=== PATIENT | male | born 1945 | race Caucasian/White ===

== ENCOUNTER → 2017-07-07 | Outpatient (CLI) | payer OTHER ==
[~2017-07-07] MED LIST: ASPEC81 PO; CRS10 PO; FLM4 PO; FLNIN NAE; LEVO125T7 PO; PRLSR20 PO
--- NOTE | 2017-07-08 07:05 | PULMONARY FUNCTION TEST ---
Pulmonary function interpretation based off ATS criteria. SPIROMETRY: Within normal limits. BRONCHODILATOR RESPONSE: No significant response noted. LUNG VOLUMES: Not performed. DIFFUSION CAPACITY: Within normal limits. Normal pulmonary function studies.
== END | disposition home or self-care (01) ==
LOC: C.RC 10:44
PROVIDERS: ATTEND Internal Medicine Critical Care Medicine
DX: G70.01 Myasthenia gravis with (acute) exacerbation (principal); J43.9 Emphysema, unspecified

== ENCOUNTER 2017-09-23 12:09 | Emergency (ER) | payer OTHER ==
[~2017-09-23] VITALS: Ht 175.3 cm; Wt 77.4 kg
[2017-09-23 12:12] VITALS: TEMP 36.5; Ht 175.3 cm; Wt 77.4 kg
--- NOTE | 2017-09-23 12:56 | DIAGNOSTIC IMAGING REPORT ---
R FOOT MIN 3 VIEWS ROUTINE CLINICAL HISTORY: Right foot pain status post trauma COMPARISON: None. DISCUSSION: There is an acute transverse fracture through the proximal one third of the fifth metatarsal. The fractures essentially nondisplaced. There are vascular calcifications present. There is calcaneal spurring. There is chronic irregularity involving the base of the distal phalanx of the great toe. IMPRESSION: Acute transverse fracture through the proximal one third of the fifth metatarsal. Electronically signed by: Junior Damon M.D. 09/23/2017 12:55 PM Dictated Date/Time: 09/23/2017 12:54 PM
[2017-09-23] MEDS ORDERED: MYCO500T4 PO (12:57)
[2017-09-23] MEDS ORDERED: ROSU5TAB PO (12:57)
[2017-09-23] MEDS ORDERED: RAMI5CAP PO (12:57)
[2017-09-23] MEDS ORDERED: GLIM1TAB2 PO (12:57)
[2017-09-23] MEDS ORDERED: PRLSR20 PO (12:57)
[2017-09-23] MEDS ORDERED: LEVO25TA PO (12:57)
[2017-09-23] MEDS ORDERED: PYRI60TA2 PO (12:57)
[2017-09-23] MEDS ORDERED: CALC-20 PO (12:57)
[2017-09-23] MEDS ORDERED: TAMS0.4C38 PO (12:57)
[2017-09-23] MEDS ORDERED: FLUT0.15 NAE (12:57)
[2017-09-23] MEDS ORDERED: FSM70 PO (12:57)
[2017-09-23] MEDS ORDERED: CHOL100010 PO (12:57)
[2017-09-23] MEDS ORDERED: PRD/1 PO (12:57)
[2017-09-23] MEDS ORDERED: GLC/500 PO (12:57)
--- NOTE | 2017-09-23 13:00 | EMERGENCY ROOM VISIT NOTE ---
ED Visit Note First contact with patient: 12:15 I have seen and examined this patient with Cydney Saab and generally agree with the treatment plan as discussed. Current/Historical Medications Scheduled Alendronate Sodium (Alendronate Sodium), 1 TAB PO WK Calcium Carbonate-Vitamin D (Calcium 600 + D), 1 TAB PO BID Cholecalciferol (Vitamin D), 1,000 UNITS PO DAILY Glimepiride (Glimepiride), 1 TAB PO DAILY Levothyroxine Sodium (Synthroid), 1 TAB PO DAILY Metformin Hcl (Glucophage), 1 TAB PO BID Mycophenolate Mofetil (Cellcept), 1 TAB PO BID Omeprazole (Prilosec), 1 CAP PO DAILY Prednisone (Prednisone), 1 TAB PO DAILY Pyridostigmine Hamer (Mestinon), 1 TAB PO TID Ramipril (Ramipril), 1 CAP PO DAILY Rosuvastatin Calcium (Crestor), 1 TAB PO DAILY Tamsulosin Hcl (Flomax), 1 CAP PO DAILY Scheduled PRN Fluticasone Propionate (Nasal) (Flonase Allergy Relief), 1 SPRAY PAULINE DAILY PRN for ALLERGIES Allergies Coded Allergies: POLLEN (Unverified Allergy, Intermediate, ., 09/23/17) Vital Signs Date Time Temp Pulse Resp B/P (MAP) Pulse Ox O2 Delivery O2 Flow Rate FiO2 09/23/17 12:12 36.5 88 20 147/73 90 Room Air Departure Information Referrals Robert No M.D. (PCP) Patient Instructions My [facility]
--- NOTE | 2017-09-23 13:16 | EMERGENCY ROOM VISIT NOTE ---
History First contact with patient: 12:15 Chief Complaint: FOOT PAIN Stated Complaint: HURT RIGHT FOOT History of Present Illness The patient is a 72 year old male who presents to the Emergency Room with complaints of a right foot injury. The patient states that he was hunting 4 days ago and fell, injuring his right foot. The fall was mechanical and not associated with dizziness or lightheadedness. He has had persistent pain and swelling since then. He rates his discomfort a 7/10. He states the pain is on the outside of the foot. He has been elevating the foot and applying ice for the pain. The patient denies any other injuries associated with the fall. He denies any previous fractures of his foot. He has a history of myasthenia gravis and medication induced diabetes, but is otherwise healthy. Review of Systems A complete 10 point review of systems was reviewed with the patient with pertinent positives and negatives as per history of present illness. All else were negative. Social History Smoking Status: Former Smoker Marital Status: Occupation Status: retired Current/Historical Medications Scheduled Alendronate Sodium (Alendronate Sodium), 1 TAB PO WK Calcium Carbonate-Vitamin D (Calcium 600 + D), 1 TAB PO BID Cholecalciferol (Vitamin D), 1,000 UNITS PO DAILY Glimepiride (Glimepiride), 1 TAB PO DAILY Levothyroxine Sodium (Synthroid), 1 TAB PO DAILY Metformin Hcl (Glucophage), 1 TAB PO BID Mycophenolate Mofetil (Cellcept), 1 TAB PO BID Omeprazole (Prilosec), 1 CAP PO DAILY Prednisone (Prednisone), 1 TAB PO DAILY Pyridostigmine Sparkman (Mestinon), 1 TAB PO TID Ramipril (Ramipril), 1 CAP PO DAILY Rosuvastatin Calcium (Crestor), 1 TAB PO DAILY Tamsulosin Hcl (Flomax), 1 CAP PO DAILY Scheduled PRN Fluticasone Propionate (Nasal) (Flonase Allergy Relief), 1 SPRAY PAULINE DAILY PRN for ALLERGIES Physical Exam Vital Signs Date Time Temp Pulse Resp B/P (MAP) Pulse Ox O2 Delivery O2 Flow Rate FiO2 09/23/17 13:37 70 134/90 95 09/23/17 12:12 36.5 88 20 147/73 90 Room Air Physical Exam VITALS: Vitals are noted on the nurse's note and reviewed by myself. Vital signs stable. GENERAL: This is a 72-year-old male, in no acute distress, nondiaphoretic, well- developed well-nourished. SKIN: The skin was without erythema, edema, or bruising. MUSCULOSKELETAL: There is swelling and tenderness over the lateral aspect of the right foot in the area of the proximal fifth metatarsal. There is some bruising to the dorsal aspect of the foot proximal to the toes as well as some bruising of the plantar aspect of the foot. Dorsalis pedis pulse 2+. Capillary refill within 2 seconds. NEURO: Patient was alert and oriented to person place and time. Medical Decision & Procedures ER Provider Diagnostic Interpretation: R FOOT MIN 3 VIEWS ROUTINE CLINICAL HISTORY: Right foot pain status post trauma COMPARISON: None. DISCUSSION: There is an acute transverse fracture through the proximal one third of the fifth metatarsal. The fractures essentially nondisplaced. There are vascular calcifications present. There is calcaneal spurring. There is chronic irregularity involving the base of the distal phalanx of the great toe. IMPRESSION: Acute transverse fracture through the proximal one third of the fifth metatarsal. Medical Decision Differential diagnosis includes fracture, contusion, sprain, dislocation, among others. The patient was evaluated as above. Right foot x-rays were obtained and read by radiology and did show a Zhao fracture of the fifth metatarsal. Patient was informed of this. He was placed in a fracture boot and given crutches to keep as much weight off the foot as possible. Conservative measures were discussed. Case management was able to make him an appointment with orthopedics for tomorrow. The patient verbalized understanding of my assessment and treatment plan and was discharged home in good condition. The patient was independently evaluated by Dr. Valera, ED attending physician , who agreed with my assessment and treatment plan. Medication Reconcilliation Current Medication List: was personally reviewed by me Blood Pressure Screening Patient's blood pressure: Normal blood pressure Impression Primary Impression: Fracture of fifth metatarsal bone Departure Information Dispostion Home / Self-Care Condition GOOD Referrals Robert No M.D. (PCP) Patient Instructions My [facility] Additional Instructions You have been treated in the Emergency Department for a fifth metatarsal (Zhao ) fracture. For pain control, you can use the following [id number] medicines (if >12 yo): - Regular strength (325mg/tab) Tylenol (acetaminophen) 2 tabs every 4-6 hours as needed. Do not exceed 12 tablets in a 24 hour period. Avoid taking more than 4 grams (4000 mg) of Tylenol per day. This includes any other sources of acetaminophen you may take on a regular basis. - Regular strength (200 mg/tab) Advil (ibuprofen) 1-2 tabs every 4-6 hours as needed. Do not exceed a dose of 3200 mg per day. If this is a recent injury (<24 hrs), ice can be applied to the area of pain for the first 3 days to help decrease pain and inflammation. Keep your appointment with [facility] orthopedics tomorrow as scheduled. Keep the boot in place until cleared by Orthopedics. Use the crutches you have been provided to keep ALL weight off of the ankle until weight bearing is tolerable. Return to the Emergency Department if your current symptoms worsen despite treatment course outlined above, or if you develop any of the following symptoms : intractable pain despite aforementioned treatment course or new onset of numbness or tingling of the foot. Problem Qualifiers Primary Impression: Fracture of fifth metatarsal bone Encounter type: initial encounter Fracture type: closed Fracture alignment : nondisplaced Laterality: right Qualified Codes: S92.354A - Nondisplaced fracture of fifth metatarsal bone, right foot, initial encounter for closed fracture
[2017-09-23 13:37] VITALS: BP 134/90; PULSE 70; O2SAT 95
== END 2017-09-23 13:41 | disposition home or self-care (01) ==
LOC: C.EDB 12:10 → C.EDD 13:41
DX: S92.354A Nondisplaced fracture of fifth metatarsal bone, right foot, initial encounter for closed fracture (principal); W19.XXXA Unspecified fall, initial encounter; Y93.89 Activity, other specified; Y99.8 Other external cause status; Z87.891 Personal history of nicotine dependence

== ENCOUNTER 2019-07-17 12:34 | Inpatient (IN) ==
[2019-07-17] MEDS ORDERED: SODIUM CHLORIDE 0.9% 500 ML IV SCH (13:15)
[2019-07-17 13:49] LABS: Hematocrit (blood only) 43.2 % (42-52); Hemoglobin 14.7 g/dL (14.0-18.0); Mean Corpuscular Hemoglobin 28.3 pg (25-34); Mean Corpuscular Volume 83.2 fL (80-100); Mean Platelet Volume 8.8 fL (7.4-10.4); Platelet Count 146 K/uL (130-400); RDW Coefficient of Variation 14.2 % (11.5-14.5); RDW Standard Deviation 43.2 fL (36.4-46.3); Red Blood Count 5.19 M/uL (4.7-6.1); White Blood Count 12.08 K/uL (4.8-10.8)
[2019-07-17 14:08] LABS: Basophils # (auto) 0.01 K/uL (0-0.2); Basophils % (auto) 0.1 %; Immature Granulocytes # (auto) 0.04 K/uL (0.00-0.02); Immature Granulocytes % (auto) 0.3 %; Lymphocytes # (auto) 0.46 K/uL (1.2-3.4); Lymphocytes % (auto) 3.8 %; Monocytes % (auto) 6.6 %; Neutrophils # (auto) 10.77 K/uL (1.4-6.5); Neutrophils % (auto) 89.2 %
[2019-07-17 14:09] LABS: BUN Creatinine Ratio 22.5 (10-20); Calcium 9.4 mg/dl (8.5-10.1); Creatinine Clr Calc Pharmacy 41.7 ml/min; Est GFR (African American) 56.6; Est GFR (Non-African American) 48.8; Potassium 3.8 mmol/L (3.5-5.1)
[2019-07-17 14:12] LABS: Albumin Globulin Ratio 0.7 (0.9-2); Bilirubin,Total 0.6 mg/dl (0.2-1); Globulin 4.5 gm/dl (2.5-4.0); Total Protein 7.5 gm/dl (6.4-8.2)
--- NOTE | 2019-07-17 14:12 | CT Scan Report ---
ABDOMEN AND PELVIS CT WITHOUT CONTRAST CT DOSE: 351.77 mGy.cm HISTORY: Lower abdominal pain. TECHNIQUE: Multiaxial CT images of the abdomen and pelvis were performed without contrast. A dose lo wering technique was utilized adhering to the principles of ALARA. COMPARISON STUDY: None. FINDINGS: Emphysema and mild chronic interstitial thickening seen at the lung bases. No pneumoperiton eum. No pneumatosis. No suspicious lytic are blastic osseous lesions. The unenhanced liver, spleen, a drenal glands, and pancreas are unremarkable. A 5 mm gallstone. No gallbladder wall thickening. No re troperitoneal lymphadenopathy. Normal bladder. Multiple pelvic calcifications consistent with phlebol iths. Suboptimal evaluation for bowel pathology due to the lack of intravenous and oral contrast. The re are multiple colonic diverticula. Minimal fat stranding surrounding a single diverticulum within t he mid sigmoid colon best seen on image 354. This is consistent with a developing acute diverticuliti s. Fluid-filled colon. No evidence for bowel obstruction. Normal bladder. A 5 mm nonobstructing stone within the lower pole the right kidney. Moderate left hydronephrosis secondary to an obstructing 8 m m stone within the distal left ureter on image 355. This is beyond the level of the left iliac vessel s. IMPRESSION: 1. An 8 mm obstructing stone within the distal left ureter resulting in moderate left hydronephrosis. 2. Right-sided nephrolithiasis. 3. Minimal inflammatory change adjacent to a diverticulum at the mid sigmoid colon. This likely repre sents a developing acute diverticulitis. 4. Cholelithiasis. No gallbladder wall thickening. 5. Emphysema. Electronically signed by: Ga Dias M.D. 07/17/2019 2:10 PM
[2019-07-17 14:44] LABS: Lyme Ab IgG w/WB Rflx Negative (Negative); Lyme Ab IgM w/WB Rflx Negative (Negative)
[2019-07-17] MEDS ORDERED: CIPROFLOXACIN 400 MG/200 ML BAG IV STA (14:52)
[2019-07-17] MEDS ORDERED: metroNIDAZOLE 500 MG/100 ML BAG IV SCH (15:00)
[2019-07-17 15:20] LABS: Appearance Urine Clear (Clear); Bacteria Urine Automated Negative (Negative); Bilirubin Urine Negative (Negative); Blood Urine 1+ (Negative); Cast Urine Automated 0 /lpf (0-5); Color Urine Yellow; Glucose Urine UA 3+ (Negative); Ketones Urine Trace (Negative); Leukocyte Esterase Urine Negative (Negative); Nitrite Urine Negative (Negative); Protein Urine Trace (Negative); RBC Urine Automated 0-4 /hpf (0-4); Specific Gravity Urine 1.037 (1.000-1.030); Urobilinogen Urine Negative (Negative)
--- NOTE | 2019-07-17 15:32 | XRay Report ---
XR chest 2V routine HISTORY: cough eval for pna COMPARISON: Chest CT 05/22/2016. FINDINGS: Mild interstitial thickening. This is likely chronic. Otherwise, no focal lung consolidatio ns to suggest pneumonia. No pleural effusions. No pneumothorax. The heart is normal in size. Calcifie d left hilar/AP window lymph nodes are again noted. A 1 cm left perihilar nodular density. IMPRESSION: 1. No acute process within the chest. 2. Mild interstitial thickening which is likely chronic. 3. A 1 cm left perihilar nodular density. This is likely due to the normal pulmonary vessels. Follow- up nonemergent chest CT can be used for confirmation and to exclude the less likely possibility of a pulmonary nodule. Electronically signed by: Ga Dias M.D. 07/17/2019 3:30 PM
[2019-07-17] MEDS ORDERED: MoRPHine SULFATE 2 MG/ML CARP IV STA (15:56)
[2019-07-17] MEDS ORDERED: PIPERACILL/TAZOBAC CONSULT ACTIVE PRN (17:02)
[2019-07-17] MEDS ORDERED: GLUCOSE 10 TABS/TUBE PO PRN (17:02)
[2019-07-17] MEDS ORDERED: DEXTROSE 50% 50 ML SYRINGE IV PRN (17:02)
[2019-07-17] MEDS ORDERED: GLUCAGON FOR INJ 1 MG VIAL SQ PRN (17:02)
[2019-07-17] MEDS ORDERED: CARBOHYDRATES FOR HYPOGLYCEMIA PO PRN (17:02)
[2019-07-17] MEDS ORDERED: INSULIN ASPART 100 UNITS/ML 3 ML PEN SC SCH (17:02)
[2019-07-17] MEDS ORDERED: GLUCOSE 40% GEL 15 GM TUBE PO PRN (17:02)
[2019-07-17] MEDS ORDERED: SODIUM CHLORIDE 0.9% 1000ML 1,000 ML IV SCH (17:02)
[2019-07-17] MEDS ORDERED: HYDROmorphone INJ 0.5 MG/0.5 ML SYR IV STA (17:08)
[2019-07-17] MEDS ORDERED: HYDROmorphone INJ 0.5 MG/0.5 ML SYR ONE (17:10)
--- NOTE | 2019-07-17 17:18 | History & Physical Report ---
Date of Service July 17, 2019 Assessment & Plan (1) Left ureteral stone: (2) Obstructive uropathy: This is a 74-year-old male who has a significant PMH of myasthenia gravis, HTN, HLD, hypothyroidism, GERD, BPH, steroid-induced diabetes and osteoporosis, diverticulosis who presents to [facility] ED secondary to not feeling well for 4 days. In ED patient did have leukocytosis 12.08, sodium 132, chloride 96, BUN 32, creatinine 1.40, glucose 214, lactic acid 1.52 LFTs and lipase WNL Urinalysis consistent with elevated specific gravity 1.037, trace protein, glucose and ketones, +1 blood, but negative for bacteria His influenza A and B and Lyme screen negative Chest x-ray negative for acute abnormality, mild interstitial thickening likely chronic. CT scan of abdomen pelvis reveals 8 mm obstructing stone within the left distal ureter resulting in moderate left hydronephrosis, along with sigmoid acute diverticulitis. Upon admission pt did not meet SIRS/Sepsis Criteria WBC 12.08 but afebrile, normotensive, HR < 90 LA 1.5 In ED received IV Cipro/Flagyl along with IVF admit to med/surg telemetry Initiate IV Zosyn for dual coverage of acute diverticulitis/nephrolithiasis with hydronephrosis in setting of myasthenia gravis IVF 125 cc/h Continue Flomax Urology consulted - Dr. Killian made aware NPO w/ sips/chips pain control with morphine (3) DALE (acute kidney injury): BUN/creatinine 32 and 1.40 Likely in setting of obstructive uropathy Baseline creatinine 0.9 IVF 125 cc/h Repeat renal function in a.m. 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 Monitor daily need for chemical prophylaxis Disposition: Admit to med/surg with telemetry Follow up: PCP Dr. Razo upon discharge Patient was seen and examined in collaboration with Dr. Snell, please see addendum History of Present Illness Chief Complaint: Not feeling well x 4 days. Primary Care Provider: Robert No MD This is a 74-year-old male who has a significant PMH of myasthenia gravis, HTN, HLD, hypothyroidism, GERD, BPH, steroid-induced diabetes and osteoporosis, diverticulosis who presents to [facility] ED secondary to not feeling well for 4 days. Since he overall has not been feeling good. States "I felt so bad I totally lost Thursday, I cannot even remember Thursday." Initially symptoms started as arthralgias and myalgias, headache, nausea. Symptoms persisted and further developed diarrhea with incontinence of stool x3, and left lower quadrant abdominal pain. His left lower quadrant pain has been persistent mostly today, rated 8/10, nonradiating, never had in past, unsure if made worse with walking or movement. Nothing seems to make pain improved. Has not tried anything [id number]. Feels pain is worse since arrival. He denies any mely fever, chills, sweats, lightheadedness, dizziness, chest pain, shortness of breath, cough, hemoptysis, URI symptoms, emesis, hematochezia, melena, dysuria, increased urgency or frequency with urination, hematuria. He does elicit he has difficulty starting stream. Denies any recent antibiotic use. In ED patient did have leukocytosis 12.08, sodium 132, chloride 96, BUN 32, creatinine 1.40, glucose 214, lactic acid 1.52 LFTs and lipase WNL Urinalysis consistent with elevated specific gravity 1.037, trace protein, glucose and ketones, +1 blood, but negative for bacteria His influenza A and B and Lyme screen negative Chest x-ray negative for acute abnormality, mild interstitial thickening likely chronic. CT scan of abdomen pelvis reveals 8 mm obstructing stone within the left distal ureter resulting in moderate left hydronephrosis, along with sigmoid acute diverticulitis. Allergies Allergy/AdvReac Type Severity Reaction Status Date / Time pollen extracts Allergy Intermediate . Unverified 07/17/19 13:55 Home Medications Home Medications Medication Instructions Recorded Confirmed Type alendronate 70 mg tablet 70 mg PO WK #4 tab 07/07/19 07/17/19 History calcium carbonate 600 mg (1,500 1 tab PO BID tab 07/07/19 07/17/19 History mg)-vitamin D3 200 unit tablet cholecalciferol (vitamin D3) 1,000 1,000 unit PO QAM cap 07/07/19 07/17/19 History unit capsule fluticasone propionate 50 2 spray INTRANASAL DAILY #1 gm 07/07/19 07/17/19 History mcg/actuation nasal spray,suspension halobetasol propionate 0.05 % 1 applic TOPICAL DAILY gm 07/07/19 07/17/19 History topical cream levothyroxine 125 mcg tablet 125 mcg PO QAM #30 tab 07/07/19 07/17/19 History metformin 1,000 mg tablet 1,000 mg PO BID #180 tab 07/07/19 07/17/19 History omeprazole 20 mg capsule,delayed 20 mg PO QPM #30 cap 07/07/19 07/17/19 History release prednisone 10 mg tablet 15 mg PO QAM tab 07/07/19 07/17/19 History pyridostigmine bromide 60 mg tablet 60 mg PO TID tab 07/07/19 07/17/19 History ramipril 2.5 mg tablet 2.5 mg PO QPM tab 07/07/19 07/17/19 History rosuvastatin 10 mg tablet 10 mg PO QAM #90 tab 07/07/19 07/17/19 History tamsulosin 0.4 mg capsule 0.4 mg PO QPM 07/07/19 07/17/19 History cyanocobalamin (vitamin B-12) 1,000 mcg PO QAM 07/17/19 07/17/19 History [Vitamin B-12] empagliflozin [Jardiance] 10 mg PO QAM 07/17/19 07/17/19 History mycophenolate mofetil [CellCept] 500 mg PO QAM 07/17/19 07/17/19 History Past Med/Surg History Medical History HLD (hyperlipidemia) (Chronic) BPH (benign prostatic hyperplasia) (Chronic) Steroid-induced diabetes mellitus (Chronic) HTN (hypertension) (Chronic) Steroid-induced osteoporosis (Chronic) GERD (gastroesophageal reflux disease) (Chronic) Diverticulosis (Chronic) Myasthenia gravis (Chronic) Hypothyroidism (Chronic) Surgical History History of colonoscopy with polypectomy (Chronic) Family History Father , 72 Coronary heart disease Mother Cancer, Onset Age: 75 Brother Prostate cancer Sister Breast cancer Son Myocardial infarction, Onset Age: 30 Son Stroke Social History Preferred Language: Guinean Communication Ability: Effective 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 Required: No Beliefs That Will Affect Care: None Current Living Situation: Spouse Other Information That Helps Us Care for You: No Feels Safe at Home: Yes Safety Concerns: Feels Safe At This Time Smoking Status: Former smoker Do You Dip or Chew Tobacco: No ; Hx Alcohol Use: No Hx Substance Use: No Review of Systems Review of Systems: All systems reviewed & are unremarkable except as noted in HPI & below Physical Exam Physical Exam: Constitutional: WD/WN male, + rigors, vitals as above, +pain, sitting up in bed, conversing easily Head: Normocephalic, Atraumatic Eyes: PERRL, conjunctivae normal, anicteric sclerae ENMT: external ear and nose normal, oropharynx dry mucous membranes Neck: trachea midline, no thyromegaly normal visual inspection Respiratory: normal respiratory effort, lungs clear to auscultation, no wheeze, rales, rhonchi. Normal insp/exp effort, no accessory muscle use Cardiovascular: RRR, no murmur, no edema Vessels: no JVD or carotid bruit Chest: normal inspection of chest Abdomen: normal bowel sounds, soft, + LLQ abd pain, no rebound, guarding, rigidity, no hepatosplenomegaly Musculoskeletal: no cyanosis or clubbing, extremities motor strength 5/5 Skin: no rashes, warm and dry normal turgor Neurologic: PERRL, EOMI, accommodation nl, no face palsy, no dysarthria CN's II-XI intact bilaterally and moves all extremities Psychiatric: A+Ox3, euthymic affect Lymphatic: no cervical or axillary lymphadenopathy : deferred Results & Data Vital Signs (Past 12 Hours) Vital Signs Temp Pulse Pulse Pulse Resp BP BP 07/17/19 16:56 38 C H 94 H 18 07/17/19 16:00 78 23 07/17/19 15:30 66 156/70 H 07/17/19 15:00 64 149/74 H 07/17/19 14:57 65 07/17/19 14:55 67 149/75 H 07/17/19 14:34 68 18 145/75 H 07/17/19 13:47 75 07/17/19 12:37 36.6 C 98 H 20 99/61 L Pulse Ox 07/17/19 16:56 94 07/17/19 16:00 07/17/19 15:30 07/17/19 15:00 07/17/19 14:57 07/17/19 14:55 07/17/19 14:34 98 07/17/19 13:47 96 07/17/19 12:37 94 Laboratory Results Short CBC 07/17/19 07/17/19 Range/Units 13:33 13:33 WBC 12.08 H (4.8-10.8) K/uL Hgb 14.7 (14.0-18.0) g/dL Hct 43.2 (42-52) % Plt Count 146 (130-400) K/uL Creatinine 1.40 (0.6-1.4) mg/dl BMP 07/17/19 13:33 Sodium 132 L Potassium 3.8 Chloride 96 L Carbon Dioxide 25 BUN 32 H Creatinine 1.40 Glucose 214 H Calcium 9.4 Liver Function 07/17/19 Range/Units 13:33 Total Bilirubin 0.6 (0.2-1) mg/dl AST 24 (15-37) U/L ALT 32 (12-78) U/L Alkaline Phosphatase 49 (45-117) U/L Albumin 3.0 L (3.4-5.0) gm/dl Urine 07/17/19 Range/Units 14:55 Urine Color Yellow Urine Appearance Clear (Clear) Urine pH 5.0 (4.5-7.5) Ur Specific [place] 1.037 H (1.000-1.030) Urine Protein Trace H (Negative) Urine Glucose (UA) 3+ H (Negative) Diagnostic Findings CXR: IMPRESSION: 1. No acute process within the chest. 2. Mild interstitial thickening which is likely chronic. 3. A 1 cm left perihilar nodular density. This is likely due to the normal pulmonary vessels. Follow-up nonemergent chest CT can be used for confirmation and to exclude the less likely possibility of a pulmonary nodule. Abd/Pelvis CT: IMPRESSION: 1. An 8 mm obstructing stone within the distal left ureter resulting in moderate left hydronephrosis. 2. Right-sided nephrolithiasis. 3. Minimal inflammatory change adjacent to a diverticulum at the mid sigmoid colon. This likely represents a developing acute diverticulitis. 4. Cholelithiasis. No gallbladder wall thickening. 5. Emphysema. Medications Administered Sodium Chloride (Nss 1000ml) 1,000 mls @ 125 mls/hr IV .Q8H JAQUELIN Stop: 07/18/19 01:01 Last Admin: 07/17/19 17:18 Dose: 125 mls/hr Documented by: [id number] Discontinued Medications Hydromorphone HCl (Dilaudid) 0.5 mg IV NOW STA Stop: 07/17/19 17:09 Last Admin: 07/17/19 17:20 Dose: 0.5 mg Documented by: [id number] Hydromorphone HCl (Dilaudid) Confirm Administered Dose 0.5 mg .ROUTE .STK-MED ONE Stop: 07/17/19 17:11 Last Admin: 07/17/19 17:21 Dose: Not Given Documented by: [id number] Sodium Chloride (Nss) 500 mls @ 999 mls/hr IV .Q31M JAQUELIN Stop: 07/17/19 13:45 Last Infusion: 07/17/19 14:19 Dose: 0 mls/hr Documented by: [id number] Admin: 07/17/19 13:44 Dose: 999 mls/hr Documented by: [id number] Ciprofloxacin (Cipro) 400 mg in 200 mls @ 200 mls/hr IV NOW STA Stop: 07/17/19 15:51 Last Infusion: 07/17/19 16:20 Dose: 0 mls/hr Documented by: [id number] Admin: 07/17/19 15:18 Dose: 200 mls/hr Documented by: [id number] Morphine Sulfate (Morphine Sulfate) 1 mg IV NOW STA Stop: 07/17/19 15:57 Last Admin: 07/17/19 16:06 Dose: 1 mg Documented by: [id number] ECG Rate (beats per minute): 79 Rhythm: sinus rhythm Code Status & VTE Plan Code Status Full Code VTE Prophylaxis Plan VTE Prophylaxis will be ordered: Yes Supervising Physician Co-Signing Physician Notes Attending addendum: This is a 74-year-old male with history of myasthenia gravis on chronic immunosuppressant CellCept, prednisone, presented to ER with weakness fever abdominal pain and discomfort In the abdomen pelvis shows: 8 mm obstructing stone within the distal left ureter resulting in moderate left hydronephrosis Minimal inflammatory change adjacent with diverticulum at the mid sigmoid colon likely represent a developing acute diverticulitis Cholelithiasis no gallbladder 1 thickening Patient meets criteria for sepsis With fever tachycardia, leukocytosis WBC 12 Blood cultures x2 shows gram-positive cocci Physical exam: General: Thin, ill-appearing gentleman, in moderate distress secondary to pain, noted to have chills and Reiger HEENT: Sclera nonicteric Lungs: Clear to auscultate no wheeze or rales Heart: Regular tachycardic no lower extremity edema Abdomen: Left lower quadrant tenderness, no rebound, bowel sounds diminished, no left CVA tenderness Neurology: Hand tremor: Worse from his baseline myasthenia gravis-fever, chills Monitor closely No focal neurological deficit noted Assessment and plan Sepsis: Met criteria for sepsis, present with fever tachycardia leukocytosis, acute renal failure, Source of infection possible obstructed ureteral stone, acute sigmoid diverticulitis Ordered for IV fluids, admission to medical telemetry, Broad-spectrum antibiotic with Zosyn, Avoid quinolones for history of myasthenia gravis(can exacerbation of myasthenia/mesna crisis leading severe respiratory disease depression) Patient received ciprofloxacin x1 dose in the ER Continue to monitor patient closely Urology consulted, appreciate input, Patient is taken to the OR emergently for left ureteric stent placement Acute renal failure: Secondary to sepsis, dehydration For IV fluids, and avoid NSAIDs contrast studies Repeat BMP in a.m. These refer to further documentation by Joyce Mejia PA-C for discussion of other chronic issues [place] [facility]
[2019-07-17] MEDS ORDERED: PIPERACILLIN/TAZOBACTAM 3.375 GM in DEXTROSE 5% 100 ML IV SCH (17:30)
[2019-07-17] MEDS: ACETAMINOPHEN 1,000 MG/100 ML VIAL IV SCH (18:26)
[2019-07-17] MEDS ORDERED: Nursing to Pharmacy Communication ONE (18:56)
--- NOTE | 2019-07-17 18:57 | Urology Consultation ---
Date of Consultation July 17, 2019 Assessment & Plan (1) Left ureteral stone: 8 mm obstructing ureteral stone on left. risks and benefits discussed at length for procedure. These include bleeding, infection, injury to surrounding tissues or organs, and risks associated with anesthesia. Patient states understanding and agrees to proceed. Will sign consent and schedule. Discussed options at length. We will proceed with cystoscopy and left stent placement. Discussed possibility of sepsis with obstructing stones. Patient will likely need to continue IV antibiotics. Will take urgently to OR as soon as available. History of Present Illness Attending Physician: Jolene Snell MD History of Present Illness Patient with sudden onset of severe flank pain on left coming to groin. Has been having some bowel issues as well. Was seen in the ER where he was diagnosed with early acute diverticulitis as well as an 8 mm obstructing left ureteral stone with hydronephrosis. Patient was admitted and started on broad- spectrum antibiotics to cover both issues. Since admission has now had a temperature of 38.0. Also pulse and BP have elevated. Pain coming in waves to back and flank. Has not felt well for the entire day. Had toast this morning for breakfast approximately 9 AM. No other intake Allergies Allergy/AdvReac Type Severity Reaction Status Date / Time pollen extracts Allergy Intermediate . Unverified 07/17/19 13:55 Home Medications Home Medications Medication Instructions Recorded Confirmed Type alendronate 70 mg tablet 70 mg PO WK #4 tab 07/07/19 07/17/19 History calcium carbonate 600 mg (1,500 1 tab PO BID tab 07/07/19 07/17/19 History mg)-vitamin D3 200 unit tablet cholecalciferol (vitamin D3) 1,000 1,000 unit PO QAM cap 07/07/19 07/17/19 History unit capsule fluticasone propionate 50 2 spray INTRANASAL DAILY #1 gm 07/07/19 07/17/19 History mcg/actuation nasal spray,suspension halobetasol propionate 0.05 % 1 applic TOPICAL DAILY gm 07/07/19 07/17/19 Hist ory topical cream levothyroxine 125 mcg tablet 125 mcg PO QAM #30 tab 07/07/19 07/17/19 History metformin 1,000 mg tablet 1,000 mg PO BID #180 tab 07/07/19 07/17/19 History omeprazole 20 mg capsule,delayed 20 mg PO QPM #30 cap 07/07/19 07/17/19 History release prednisone 10 mg tablet 15 mg PO QAM tab 07/07/19 07/17/19 History pyridostigmine bromide 60 mg tablet 60 mg PO TID tab 07/07/19 07/17/19 History ramipril 2.5 mg tablet 2.5 mg PO QPM tab 07/07/19 07/17/19 History rosuvastatin 10 mg tablet 10 mg PO QAM #90 tab 07/07/19 07/17/19 History tamsulosin 0.4 mg capsule 0.4 mg PO QPM 07/07/19 07/17/19 History cyanocobalamin (vitamin B-12) 1,000 mcg PO QAM 07/17/19 07/17/19 History [Vitamin B-12] empagliflozin [Jardiance] 10 mg PO QAM 07/17/19 07/17/19 History mycophenolate mofetil [CellCept] 500 mg PO QAM 07/17/19 07/17/19 History Patient History Medical History HLD (hyperlipidemia) (Chronic) BPH (benign prostatic hyperplasia) (Chronic) Steroid-induced diabetes mellitus (Chronic) HTN (hypertension) (Chronic) Steroid-induced osteoporosis (Chronic) GERD (gastroesophageal reflux disease) (Chronic) Diverticulosis (Chronic) Myasthenia gravis (Chronic) Hypothyroidism (Chronic) Surgical History History of colonoscopy with polypectomy (Chronic) Family History Father , 72 Coronary heart disease Mother Cancer, Onset Age: 75 Brother Prostate cancer Sister Breast cancer Son Myocardial infarction, Onset Age: 30 Son Stroke Social History Preferred Language: Scottish Communication Ability: Effective 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 Patient is well nourished and well kept. HEENT: Normocephalic Atraumatic. Inspection normal. Cranial Nerves 2-12 Grossly intact. Nares are clear. Neck is supple. Normal inspection of face. Normal inspection of neck. Neurologic: No deficits on inspection. Baseline for motor function and sensory. Psychologic: Normal affect. Respiratory: Nonlabored. No use of accessory muscles. No tachypnea or dyspnea. Cardiovascular: tachycardia Skin: Manele and Dry. No rashes or visible lesions. Extremities: Moving without issues. No motor deficits on inspection Lymphatics: No edema Abdomen: Moderate left flank and groin pain. Results & Data Vital Signs (Past 12 Hours) Vital Signs Temp Pulse Pulse Pulse Resp BP BP 07/17/19 16:56 38 C H 94 H 18 07/17/19 16:45 90 165/74 H 07/17/19 16:00 78 23 07/17/19 15:30 66 156/70 H 07/17/19 15:00 64 149/74 H 07/17/19 14:57 65 07/17/19 14:55 67 149/75 H 07/17/19 14:34 68 18 145/75 H 07/17/19 13:47 75 07/17/19 12:37 36.6 C 98 H 20 99/61 L Pulse Ox 07/17/19 16:56 94 07/17/19 16:45 07/17/19 16:00 07/17/19 15:30 07/17/19 15:00 07/17/19 14:57 07/17/19 14:55 07/17/19 14:34 98 07/17/19 13:47 96 07/17/19 12:37 94 PG Care Time/CCT Total # of Minutes Spent Total Time Spent with Patient: Total time spent is greater than 50% in coordination of care (as documented) at patient's floor/unit and/or counseling patient:
--- NOTE | 2019-07-17 19:31 | Anesthesiology Consultation ---
Date of Service July 17, 2019 Assessment & Plan (1) Encounter for pre-operative examination: Chart Review Chart Review: Acceptable Risk for Surgery Consults Requested none ASA [id number] Proposed Anesthesia Anesthesia Type: MAC Risk / Benefits Reviewed With: PT / POA / Parent / Guardian, Accepts Plan and Informed Consent Obtained History Surgery Operation Date: 07/17/19 20:00 Proposed Procedures p Cystoscopy(Left) - Romero Killian II, DO Height/Weight Height: 5 ft 9 in Weight: 64.6 kg Allergies Allergy/AdvReac Type Severity Reaction Status Date / Time pollen extracts Allergy Intermediate . Unverified 07/17/19 13:55 Medications Home Medications Medication Instructions Recorded Confirmed Last Taken alendronate 70 mg tablet 70 mg PO WK #4 tab 07/07/19 07/17/19 07/11/19 calcium carbonate 600 mg (1,500 1 tab PO BID tab 07/07/19 07/17/19 07/17/19 mg)-vitamin D3 200 unit tablet cholecalciferol (vitamin D3) 1,000 1,[address] [facility] 07/07/19 07/17/19 07/17/19 unit capsule fluticasone propionate 50 2 spray INTRANASAL DAILY #1 gm 07/07/19 07/17/19 Unknown mcg/actuation nasal spray,suspension halobetasol propionate 0.05 % 1 applic TOPICAL DAILY 07/07/19 07/17/19 Unknown topical cream levothyroxine 125 mcg tablet 125 mcg PO QAM #30 tab 07/07/19 07/17/19 07/17/19 metformin 1,000 mg tablet 1,000 mg PO BID #180 tab 07/07/19 07/17/19 07/17/19 omeprazole 20 mg capsule,delayed 20 mg PO QPM #30 [facility] 07/07/19 07/17/19 07/16/19 release prednisone 10 mg tablet 15 mg PO QAM tab 07/07/19 07/17/19 07/17/19 pyridostigmine bromide 60 mg tablet 60 mg PO TID tab 07/07/19 07/17/19 07/17/19 ramipril 2.5 mg tablet 2.5 mg PO QPM tab 07/07/19 07/17/19 07/16/19 rosuvastatin 10 mg tablet 10 mg PO QAM #90 tab 09/07/17/19 07/17/19 tamsulosin 0.4 mg capsule 0.4 mg PO QPM 07/07/19 07/17/19 07/16/19 cyanocobalamin (vitamin B-12) 1,000 mcg PO QAM 07/17/19 07/17/19 07/17/19 [Vitamin B-12] empagliflozin [Jardiance] 10 mg PO QAM 07/17/19 07/17/19 07/17/19 mycophenolate mofetil [CellCept] 500 mg PO QAM 07/17/19 07/17/19 07/17/19 Active Medications Generic Name Dose Route Start Last Admin Trade Name Freq PRN Reason Stop Dose Admin Sodium Chloride 1,000 mls @ 125 mls/hr 07/17/19 17:02 07/17/19 17:18 Nss 1000ml IV 07/18/19 01:01 125 mls/hr .Q8H JAQUELIN Administration Acetaminophen 1,000 mg in 100 mls @ 400 mls/hr 07/17/19 18:00 07/17/19 18:57 Ofirmev IV 08/16/19 17:59 Infused Q8H JAQUELIN Infusion NPO Date Last Intake of Fluids: 07/17/19 Time Last Intake of Fluids: 18:00 Last Intake of Fluids Comment: ice chips and sips Date Last Intake of Solids: 07/17/19 Time Last Intake of Solids: 09:00 Past Medical History Medical History HLD (hyperlipidemia) (Chronic) BPH (benign prostatic hyperplasia) (Chronic) Steroid-induced diabetes mellitus (Chronic) HTN (hypertension) (Chronic) Steroid-induced osteoporosis (Chronic) GERD (gastroesophageal reflux disease) (Chronic) Diverticulosis (Chronic) Myasthenia gravis (Chronic) Hypothyroidism (Chronic) Exercise / Class Metabolic Activity III < 4 Walking/Shop/Light housework Negative for chest pain or shortness of breath. Past Family History Family History Father , 72 Coronary heart disease Mother Cancer, Onset Age: 75 Brother Prostate cancer Sister Breast cancer Son Myocardial infarction, Onset Age: 30 Son Stroke Past Surgical History Surgical History History of colonoscopy with polypectomy (Chronic) Past Anesthesia History No Hx of Anesthesia Complications History of PONV No Hx of PONV Social History Smoking Status: Former smoker Do You Dip or Chew Tobacco: No Hx Alcohol Use: No Hx Substance Use: No Review of Systems abdominal pain, fever, denies n/v Physical Exam Vital Signs Last Vital Signs Temp 37.2 C 07/17/19 19:36 Pulse 85 07/17/19 19:36 Resp 16 07/17/19 19:36 BP 84/48 L 07/17/19 19:36 Pulse Ox 94 07/17/19 19:36 Constitutional not obese ENMT Mouth: no TMJ abnormality and oral opening not small Thyromental Distance: > or= 3.5 Finger Breadths Mallampati Class: II Neck normal visual inspection; neck extension not limited Respiratory normal respiratory effort Auscultation: lungs clear to auscultation bilaterally Cardiovascular Rate/Rhythm: regular rate and regular rhythm Heart Sounds: no murmur Neurologic moves all extremities Psychiatric Orientation: alert and oriented x 3 Testing Laboratory Results 07/17/19 13:33 07/17/19 13:33 Urine Color Yellow 07/17/19 14:55 Urine Appearance Clear (Clear) 07/17/19 14:55 Urine pH 5.0 (4.5-7.5) 07/17/19 14:55 Ur Specific [place] 1.037 (1.000-1.030) H 07/17/19 14:55 Urine Protein Trace (Negative) H 07/17/19 14:55 Urine Glucose (UA) 3+ (Negative) H 07/17/19 14:55 Urine Ketones Trace (Negative) H 07/17/19 14:55 Urine Nitrite Negative (Negative) 07/17/19 14:55 Ur Leukocyte Esterase Negative (Negative) 07/17/19 14:55 Urine WBC (Auto) 1-5 /hpf (0-5) 07/17/19 14:55 Urine RBC (Auto) 0-4 /hpf (0-4) 07/17/19 14:55 U Hyaline Cast (Auto) 0 /lpf (0-5) 07/17/19 14:55 U Epithel Cells (Auto) 10-20 /lpf (0-5) H 07/17/19 14:55 Urine Bacteria (Auto) Negative (Negative) 07/17/19 14:55 07/17/19 17:12 POC Glucose 217 H Electrocardiogram Date: 07/17/19 Findings: + NSR @ (79) Normal sinus rhythm Inferior infarct , age undetermined, No previous ECGs available
[2019-07-17] MEDS ORDERED: LIDOCAINE HCL 2% 2 ML VIAL/AMP(20MG/ML) INFIL ONE (19:37)
[2019-07-17] MEDS ORDERED: PROPOFOL IV EMULSION 10 MG/ML 20 ML VIAL IV ONE ×2 (19:37→20:25)
[2019-07-17] MEDS: PYRIDOSTIGMINE BROMIDE 60 MG TAB PO SCH ×2 (19:53→23:40)
[2019-07-17] MEDS ORDERED: MoRPHine SULFATE 2 MG/ML CARP IV PRN (20:00)
[2019-07-17] MEDS ORDERED: HYDROmorphone INJ 1 MG/ML SYRINGE IV PRN (20:00)
[2019-07-17] MEDS ORDERED: MIDAZOLAM HCL 1 MG/ML 2ML VIAL ONE (20:07)
[2019-07-17] MEDS ORDERED: IOTHALAMATE MEGLUMINE II 17.2% 250 ML VIAL ONE (20:16)
--- NOTE | 2019-07-17 20:19 | Emergency Department Note ---
Entered by Eladia Curry acting as a scribe for History of Present Illness General Chief complaint: Flu Like Symptoms Stated complaint: FLU SICK Source: patient Limitations: no limitations History of Present Illness Onset (ago): day(s) 3 Location: head, upper extremity and lower extremity Pain Consistency: + other (persistent) Maximum Pain Intensity: 5 Quality: + other (flu-like ) Associated symptoms: + fever/chills, + headaches and + other (abdominal pain, "rumbling" in stomach, diarrhea); no cough and no shortness of breath The patient is a 74 year old male who presents to the Emergency Room with complaints of persistent flu-like symptoms that began 3 days ago. He states that the symptoms began with aching joints in his upper and lower extremities. The patient reports that nausea began after the aching joints, stating that he has mid-lower abdominal pain. He notes that his stomach has been "rumbling." The patient complains of multiple episodes of loose diarrhea. He states that he has left-sided chest "irritation," denying any chest pressure or tightness. The patient notes that he had a fever of 102 degrees last night. He complains of an intermittent headache, noting that this is a normal headache. The patient denies any headache now. He denies any hematochezia, SOB, cough, and urinary symptoms. The patient denies any recent international travel, antibiotic use, and tick exposure. He states that he has not history of abdominal surgeries. Home Medications Home Medications Medication Instructions Recorded Confirmed Type alendronate 70 mg tablet 70 mg PO WK #4 tab 07/07/19 07/17/19 History calcium carbonate 600 mg (1,500 1 tab PO BID tab 07/07/19 07/17/19 History mg)-vitamin D3 200 unit tablet cholecalciferol (vitamin D3) 1,000 1,000 unit PO QAM cap 07/07/19 07/17/19 History unit capsule fluticasone propionate 50 2 spray INTRANASAL DAILY #1 gm 07/07/19 07/17/19 History mcg/actuation nasal spray,suspension halobetasol propionate 0.05 % 1 applic TOPICAL DAILY gm 07/07/19 07/17/19 History topical cream levothyroxine 125 mcg tablet 125 mcg PO QAM #30 tab 07/07/19 07/17/19 History metformin 1,000 mg tablet 1,000 mg PO BID #180 tab 07/07/19 07/17/19 History omeprazole 20 mg capsule,delayed 20 mg PO QPM #30 cap 07/07/19 07/17/19 History release prednisone 10 mg tablet 15 mg PO QAM tab 07/07/19 07/17/19 History pyridostigmine bromide 60 mg tablet 60 mg PO TID tab 07/07/19 07/17/19 History ramipril 2.5 mg tablet 2.5 mg PO QPM tab 07/07/19 07/17/19 History rosuvastatin 10 mg tablet 10 mg PO QAM #90 tab 07/07/19 07/17/19 History tamsulosin 0.4 mg capsule 0.4 mg PO QPM 07/07/19 07/17/19 History cyanocobalamin (vitamin B-12) 1,000 mcg PO QAM 07/17/19 07/17/19 History [Vitamin B-12] empagliflozin [Jardiance] 10 mg PO QAM 07/17/19 07/17/19 History mycophenolate mofetil [CellCept] 500 mg PO QAM 07/17/19 07/17/19 History Allergies Allergy/AdvReac Type Severity Reaction Status Date / Time pollen extracts Allergy Intermediate . Unverified 07/17/19 13:55 Past Med/Surg History Medical History HLD (hyperlipidemia) (Chronic) BPH (benign prostatic hyperplasia) (Chronic) Steroid-induced diabetes mellitus (Chronic) HTN (hypertension) (Chronic) Steroid-induced osteoporosis (Chronic) GERD (gastroesophageal reflux disease) (Chronic) Diverticulosis (Chronic) Myasthenia gravis (Chronic) Hypothyroidism (Chronic) Surgical History History of colonoscopy with polypectomy (Chronic) Family History Father , 72 Coronary heart disease Mother Cancer, Onset Age: 75 Brother Prostate cancer Sister Breast cancer Son Myocardial infarction, Onset Age: 30 Son Stroke Social History Preferred Language: Czech Communication Ability: Effective Shaper And Presser Required: No Beliefs That Will Affect Care: None Current Living Situation: Spouse Other Information That Helps Us Care for You: No Feels Safe at Home: Yes Safety Concerns: Feels Safe At This Time Smoking Status: Former smoker Do You Dip or Chew Tobacco: No ; Hx Alcohol Use: No Hx Substance Use: No Review of Systems See HPI for pertinent positives & negatives. and A total of 10 systems reviewed and were otherwise negative Physical Exam Vital Signs Vital Signs - 24 hr 07/17/19 12:34 07/17/19 12:37 07/17/19 13:47 Temperature 36.6 C Temperature Source Oral Oral Sepsis Recent Fever Within 48 Hours No Sepsis New/Unexplained Change in Mental Status No Sepsis Action Taken by Nursing No Action Required Pulse Rate 98 H 75 Pulse Rate [Apical] Pulse Rate from SpO2 Sensor 79 Respiratory Rate 20 Respiratory Effort / Characteristics Non-Labored Spontaneous Respiratory Depth Normal Blood Pressure 99/61 L Blood Pressure [Right Arm] Blood Pressure Mean 73 Blood Pressure Mean [Right Arm] Pulse Oximetry 94 96 Oxygen Delivery Method Room Air 07/17/19 14:34 07/17/19 14:55 07/17/19 14:57 Temperature Temperature Source Sepsis Recent Fever Within 48 Hours Sepsis New/Unexplained Change in Mental Status Sepsis Action Taken by Nursing Pulse Rate 67 65 Pulse Rate [Apical] 68 Pulse Rate from SpO2 Sensor Respiratory Rate 18 Respiratory Effort / Characteristics Respiratory Depth Blood Pressure 149/75 H Blood Pressure [Right Arm] 145/75 H Blood Pressure Mean 99 Blood Pressure Mean [Right Arm] 98 Pulse Oximetry 98 Oxygen Delivery Method 07/17/19 15:00 07/17/19 15:30 Temperature Temperature Source Sepsis Recent Fever Within 48 Hours Sepsis New/Unexplained Change in Mental Status Sepsis Action Taken by Nursing Pulse Rate 64 66 Pulse Rate [Apical] Pulse Rate from SpO2 Sensor Respiratory Rate Respiratory Effort / Characteristics Respiratory Depth Blood Pressure 149/74 H 156/70 H Blood Pressure [Right Arm] Blood Pressure Mean 99 98 Blood Pressure Mean [Right Arm] Pulse Oximetry Oxygen Delivery Method Constitutional: Vital signs reviewed. Eyes: Pupils are equal round reactive to light. Conjunctiva are noninjected. ENT: Pharynx is clear without erythema or exudate. Mucous membranes are dry. Neck supple without meningeal signs. Respiratory: Clear to auscultation bilaterally. Breath sounds are equal bilaterally. Cardiovascular: Regular rate and rhythm. No rubs or gallops. GI: Soft, nondistended. Bowel sounds are present. Suprapubic tenderness, no guarding. Musculoskeletal: No peripheral edema. No lower extremity tenderness. No CVA tenderness. Integumentary: No cyanosis. Neurological: The patient is awake and alert. No focal deficits. Psychiatric: Normal affect. Course 1258: The patient was evaluated in room C05. A complete history and physical exam was performed. 1452: I discussed the test results with the patient. We are waiting for the urinalysis. The patient's blood pressure was 149/75. 1507: I spoke with Rico Michaels PA-C, about the patients case. She will further evaluate the patient with Rico Chambers. Consultations Consultation #1: I spoke with Rico Michaels PA-C, about the patients case. She will further evaluate the patient with Rico Chambers. Time: 15:07 Administered Medications Sodium Chloride (Nss 1000ml) 1,000 mls @ 125 mls/hr IV .Q8H JAQUELIN Stop: 07/18/19 01:01 Last Admin: 07/17/19 17:18 Dose: 125 mls/hr Documented by: [id number] Acetaminophen (Ofirmev) 1,000 mg in 100 mls @ 400 mls/hr IV Q8H JAQUELIN Stop: 08/16/19 17:59 Last Infusion: 07/17/19 18:57 Dose: 0 mls/hr Documented by: [id number] Admin: 07/17/19 18:26 Dose: 400 mls/hr Documented by: [id number] Pyridostigmine Arthur (Mestinon) 60 mg PO TID JAQUELIN Stop: 08/16/19 20:59 Last Admin: 07/17/19 19:53 Dose: 60 mg Documented by: [id number] Discontinued Medications Hydromorphone HCl (Dilaudid) 0.5 mg IV NOW STA Stop: 07/17/19 17:09 Last Admin: 07/17/19 17:20 Dose: 0.5 mg Documented by: [id number] Hydromorphone HCl (Dilaudid) Confirm Administered Dose 0.5 mg .ROUTE .STK-MED ONE Stop: 07/17/19 17:11 Last Admin: 07/17/19 17:21 Dose: Not Given Documented by: [id number] Sodium Chloride (Nss) 500 mls @ 999 mls/hr IV .Q31M [facility] Stop: 07/17/19 13:45 Last Infusion: 07/17/19 14:19 Dose: 0 mls/hr Documented by: [id number] Admin: 07/17/19 13:44 Dose: 999 mls/hr Documented by: [id number] Ciprofloxacin (Cipro) 400 mg in 200 mls @ 200 mls/hr IV NOW STA Stop: 07/17/19 15:51 Last Infusion: 07/17/19 16:20 Dose: 0 mls/hr Documented by: [id number] Admin: 07/17/19 15:18 Dose: 200 mls/hr Documented by: [id number] Piperacillin Sod/Tazobactam (Sod 3.375 gm/ Dextrose) 115 mls @ 230 mls/hr IV TODAY@1730 [facility]; Protocol Stop: 07/17/19 17:59 Last Infusion: 07/17/19 19:10 Dose: 0 mls/hr Documented by: [id number] Admin: 07/17/19 18:24 Dose: 230 mls/hr Documented by: [id number] Insulin Aspart (Novolog Flexpen) 0 units SC ACHS [facility] Stop: 08/16/19 17:01 Last Admin: 07/17/19 18:22 Dose: 3 units Documented by: [id number] Cosigned by: [id number] Morphine Sulfate (Morphine Sulfate) 1 mg IV NOW STA Stop: 07/17/19 15:57 Last Admin: 07/17/19 16:06 Dose: 1 mg Documented by: [id number] Medical Decision Making Differential Diagnosis The differential diagnosis includes: diverticulitis, colitis, dehydration, Lyme disease, influenza, pneumonia, and IA. Medical Records Attestation: I reviewed the patient's medical records. Home Medications Current Medication List: was personally reviewed by me Laboratory Data Attestation: I reviewed the patient's lab results. Result diagrams: 07/17/19 13:33 07/17/19 13:33 Lab Results 07/17/19 07/17/19 07/17/19 Range/Units 13:33 13:33 13:33 WBC 12.08 H (4.8-10.8) K/uL RBC 5.19 (4.7-6.1) M/uL Hgb 14.7 (14.0-18.0) g/dL Hct 43.2 (42-52) % MCV 83.2 (80-100) fL MCH 28.3 (25-34) pg MCHC 34.0 (32-36) g/dL RDW Std Deviation 43.2 (36.4-46.3) fL RDW Coeff of [place] 14.2 (11.5-14.5) % Plt Count 146 (130-400) K/uL MPV 8.8 (7.4-10.4) fL Immature Gran % (Auto) 0.3 % Neut % (Auto) 89.2 % Lymph % (Auto) 3.8 % [place] % (Auto) 6.6 % Eos % (Auto) 0.0 % Baso % (Auto) 0.1 % Immature Gran # (Auto) 0.04 H (0.00-0.02) K/uL Neut # (Auto) 10.77 H (1.4-6.5) K/uL Lymph # (Auto) 0.46 L (1.2-3.4) K/uL [place] # (Auto) 0.80 H (0.11-0.59) K/uL Eos # (Auto) 0.00 (0-0.5) K/uL Baso # (Auto) 0.01 (0-0.2) K/uL Sodium 132 L (136-145) mmol/L Potassium 3.8 (3.5-5.1) mmol/L Chloride 96 L (98-107) mmol/L Carbon Dioxide 25 (21-32) mmol/L Anion Gap 11.0 (3-11) BUN 32 H (7-18) mg/dl Creatinine 1.40 (0.6-1.4) mg/dl Est Cr Clr Drug Dosing 41.7 ml/min Est GFR ( Amer) 56.6 Est GFR (Non-Af Amer) 48.8 BUN/Creatinine Ratio 22.5 H (10-20) Glucose 214 H (70-99) mg/dl POC Lactic Acid Levi (0.90-1.70) mmol/L Calcium 9.4 (8.5-10.1) mg/dl Total Bilirubin 0.6 (0.2-1) mg/dl AST 24 (15-37) U/L ALT 32 (12-78) U/L Alkaline Phosphatase 49 (45-117) U/L POC Troponin I (0-0.045) ng/ml Total Protein 7.5 (6.4-8.2) gm/dl Albumin 3.0 L (3.4-5.0) gm/dl Globulin 4.5 H (2.5-4.0) gm/dl Albumin/Globulin Ratio 0.7 L (0.9-2) Lipase 309 (73-393) U/L Urine Color Urine Appearance (Clear) Urine pH (4.5-7.5) Ur Specific [place] (1.000-1.030) Urine Protein (Negative) Urine Glucose (UA) (Negative) Urine Ketones (Negative) Urine Blood (Negative) Urine Nitrite (Negative) Urine Bilirubin (Negative) Urine Urobilinogen (Negative) Ur Leukocyte Esterase (Negative) Urine WBC (Auto) (0-5) /hpf Urine RBC (Auto) (0-4) /hpf U Hyaline Cast (Auto) (0-5) /lpf U Epithel Cells (Auto) (0-5) /lpf Urine Bacteria (Auto) (Negative) Lyme Disease IgG Ab Negative (Negative) Lyme Disease IgM Ab Negative (Negative) Influenza Type A Ag (Neg) Influenza Type B Ag (Neg) 07/17/19 07/17/19 07/17/19 Range/Units 13:40 13:42 13:43 WBC (4.8-10.8) K/uL RBC (4.7-6.1) M/uL Hgb (14.0-18.0) g/dL Hct (42-52) % MCV (80-100) fL MCH (25-34) pg MCHC (32-36) g/dL RDW Std Deviation (36.4-46.3) fL RDW Coeff of [place] (11.5-14.5) % Plt Count (130-400) K/uL MPV (7.4-10.4) fL Immature Gran % (Auto) % Neut % (Auto) % Lymph % (Auto) % [place] % (Auto) % Eos % (Auto) % Baso % (Auto) % Immature Gran # (Auto) (0.00-0.02) K/uL Neut # (Auto) (1.4-6.5) K/uL Lymph # (Auto) (1.2-3.4) K/uL [place] # (Auto) (0.11-0.59) K/uL Eos # (Auto) (0-0.5) K/uL Baso # (Auto) (0-0.2) K/uL Sodium (136-145) mmol/L Potassium (3.5-5.1) mmol/L Chloride (98-107) mmol/L Carbon Dioxide (21-32) mmol/L Anion Gap (3-11) BUN (7-18) mg/dl Creatinine (0.6-1.4) mg/dl Est Cr Clr Drug Dosing ml/min Est GFR ( Amer) Est GFR (Non-Af Amer) BUN/Creatinine Ratio (10-20) Glucose (70-99) mg/dl POC Lactic Acid Levi 1.52 (0.90-1.70) mmol/L Calcium (8.5-10.1) mg/dl Total Bilirubin (0.2-1) mg/dl AST (15-37) U/L ALT (12-78) U/L Alkaline Phosphatase (45-117) U/L POC Troponin I < 0.03 (0-0.045) ng/ml Total Protein (6.4-8.2) gm/dl Albumin (3.4-5.0) gm/dl Globulin (2.5-4.0) gm/dl Albumin/Globulin Ratio (0.9-2) Lipase (73-393) U/L Urine Color Urine Appearance (Clear) Urine pH (4.5-7.5) Ur Specific [place] (1.000-1.030) Urine Protein (Negative) Urine Glucose (UA) (Negative) Urine Ketones (Negative) Urine Blood (Negative) Urine Nitrite (Negative) Urine Bilirubin (Negative) Urine Urobilinogen (Negative) Ur Leukocyte Esterase (Negative) Urine WBC (Auto) (0-5) /hpf Urine RBC (Auto) (0-4) /hpf U Hyaline Cast (Auto) (0-5) /lpf U Epithel Cells (Auto) (0-5) /lpf Urine Bacteria (Auto) (Negative) Lyme Disease IgG Ab (Negative) Lyme Disease IgM Ab (Negative) Influenza Type A Ag Neg for Influ A (Neg) Influenza Type B Ag Neg for Influ B (Neg) 07/17/19 Range/Units 14:55 WBC (4.8-10.8) K/uL RBC (4.7-6.1) M/uL Hgb (14.0-18.0) g/dL Hct (42-52) % MCV (80-100) fL MCH (25-34) pg MCHC (32-36) g/dL RDW Std Deviation (36.4-46.3) fL RDW Coeff of [place] (11.5-14.5) % Plt Count (130-400) K/uL MPV (7.4-10.4) fL Immature Gran % (Auto) % Neut % (Auto) % Lymph % (Auto) % [place] % (Auto) % Eos % (Auto) % Baso % (Auto) % Immature Gran # (Auto) (0.00-0.02) K/uL Neut # (Auto) (1.4-6.5) K/uL Lymph # (Auto) (1.2-3.4) K/uL [place] # (Auto) (0.11-0.59) K/uL Eos # (Auto) (0-0.5) K/uL Baso # (Auto) (0-0.2) K/uL Sodium (136-145) mmol/L Potassium (3.5-5.1) mmol/L Chloride (98-107) mmol/L Carbon Dioxide (21-32) mmol/L Anion Gap (3-11) BUN (7-18) mg/dl Creatinine (0.6-1.4) mg/dl Est Cr Clr Drug Dosing ml/min Est GFR ( Amer) Est GFR (Non-Af Amer) BUN/Creatinine Ratio (10-20) Glucose (70-99) mg/dl POC Lactic Acid Levi (0.90-1.70) mmol/L Calcium (8.5-10.1) mg/dl Total Bilirubin (0.2-1) mg/dl AST (15-37) U/L ALT (12-78) U/L Alkaline Phosphatase (45-117) U/L POC Troponin I (0-0.045) ng/ml Total Protein (6.4-8.2) gm/dl Albumin (3.4-5.0) gm/dl Globulin (2.5-4.0) gm/dl Albumin/Globulin Ratio (0.9-2) Lipase (73-393) U/L Urine Color Yellow Urine Appearance Clear (Clear) Urine pH 5.0 (4.5-7.5) Ur Specific [place] 1.037 H (1.000-1.030) Urine Protein Trace H (Negative) Urine Glucose (UA) 3+ H (Negative) Urine Ketones Trace H (Negative) Urine Blood 1+ H (Negative) Urine Nitrite Negative (Negative) Urine Bilirubin Negative (Negative) Urine Urobilinogen Negative (Negative) Ur Leukocyte Esterase Negative (Negative) Urine WBC (Auto) 1-5 (0-5) /hpf Urine RBC (Auto) 0-4 (0-4) /hpf U Hyaline Cast (Auto) 0 (0-5) /lpf U Epithel Cells (Auto) 10-20 H (0-5) /lpf Urine Bacteria (Auto) Negative (Negative) Lyme Disease IgG Ab (Negative) Lyme Disease IgM Ab (Negative) Influenza Type A Ag (Neg) Influenza Type B Ag (Neg) Imaging Data Radiologist's Impression: Radiology results as stated below per my review and the radiologist's interpretation: XR chest 2V routine HISTORY: cough eval for pna COMPARISON: Chest CT 05/22/2016. FINDINGS: Mild interstitial thickening. This is likely chronic. Otherwise, no fo lorena lung consolidations to suggest pneumonia. No pleural effusions. No pneumothorax. The heart is normal in size. Calcified left hilar/AP window lymph nodes are again noted. A 1 cm left perihilar nodular density. IMPRESSION: 1. No acute process within the chest. 2. Mild interstitial thickening which is likely chronic. 3. A 1 cm left perihilar nodular density. This is likely due to the normal pul monary vessels. Follow-up nonemergent chest CT can be used for confirmation and to exclude the less likely possibility of a pulmonary nodule. Electronically signed by: Ga Dias M.D. 07/17/2019 3:30 PM ABDOMEN AND PELVIS CT WITHOUT CONTRAST CT DOSE: 351.77 mGy.cm HISTORY: Lower abdominal pain. TECHNIQUE: Multiaxial CT images of the abdomen and pelvis were performed without contrast. A dose lowering technique was utilized adhering to the principles of ALARA. COMPARISON STUDY: None. FINDINGS: Emphysema and mild chronic interstitial thickening seen at the lung bases. No pneumoperitoneum. No pneumatosis. No suspicious lytic are blastic osseous lesions. The unenhanced liver, spleen, adrenal glands, and pancreas are unremarkable. A 5 mm gallstone. No gallbladder wall thickening. No retroperitoneal lymphadenopathy. Normal bladder. Multiple pelvic calcifications consistent with phleboliths. Suboptimal evaluation for bowel pathology due to the lack of intravenous and oral contrast. There are multiple colonic diverticula. Minimal fat stranding surrounding a single diverticulum within the mid sigmoid colon best seen on image 354. This is consistent with a developing acute diverticulitis. Fluid-filled colon. No evidence for bowel obstruction. Normal bladder. A 5 mm nonobstructing stone within the lower pole the right kidney. Moderate left hydronephrosis secondary to an obstructing 8 mm stone within the distal left ureter on image 355. This is beyond the level of the left iliac vessels. IMPRESSION: 1. An 8 mm obstructing stone within the distal left ureter resulting in moderate left hydronephrosis. 2. Right-sided nephrolithiasis. 3. Minimal inflammatory change adjacent to a diverticulum at the mid sigmoid colon. This likely represents a developing acute diverticulitis. 4. Cholelithiasis. No gallbladder wall thickening. 5. Emphysema. Electronically signed by: Ga Dias M.D. 07/17/2019 2:10 PM ECG Data Attestation: I personally reviewed and interpreted this ECG as follows: Indication: chest pain Rate (beats per minute): 79 Rhythm: normal sinus Findings: + Q waves (Inferior); no PVC and no ST elevation Comparison ECG Date: no prior available Blood Pressure Blood Pressure Findings: Low blood pressure Blood Pressure Disposition: further management by hospitalist [facility] Narrative I did evaluate the patient as noted above. The patient is presenting with lowe r abdominal pain. He also complains of diarrhea. He also complains of malaise and diffuse joint ache. IV access was established. The patient was placed on a continuous collar band creaser. He is mildly hypotensive. This may be secondary to dehydration from his diarrhea. He was given a bolus of normal saline IV after which his blood pressure did improve. I did order and personally review the dyllan kasandra's 12-lead EKG as described above. I did order and personally reviewed the images of the patient's chest x-ray as described above. He does have Q waves inferiorly. He is not currently having any chest pain. He states that his chest pain felt like gas. I did order a urine analysis. There is no evidence of infection. I did order and review the patient's blood work as noted in the electronic medical record. His white count is elevated. He is not anemic. He does have hyperglycemia. Sodium is 132. Creatinine is 1.4. Lyme testing is negative. Flu testing is negative. I did order a CT of the abdomen and pelvis. I did review the images myself as well as the radiology report as described above. He has diverticulitis as well as a left ureteral stone with hydronephrosis. I did discuss the test results with the patient. I did recommend hospitalization for further care and evaluation. I did treat him with Cipro and Flagyl IV. I did discuss the case with the hospitalist and case management specialist. Impression & Plan Acute diverticulitis, Obstructive uropathy, Left ureteral stone, Hypotension, Hyperglycemia, Hyponatremia, Chest pain Discharge Plan Visit Data *Final* Discharge Date/Time: 07/17/19 16:29 Chief Complaint: Flu Like Symptoms Stated Complaint: FLU SICK ED Provider: David Hernandez Discharge Problem: Acute diverticulitis, Obstructive uropathy, Left ureteral stone, Hypotension, Hyperglycemia, Hyponatremia, Chest pain Patient Disposition: Admitted As Inpatient Discharge Instructions Interventions: ED Discharge Assessment Last Done: 07/17/19 16:29 Discharge Problem: Hypotension Qualifiers: Hypotension type: unspecified hypotension type Qualified Code(s): I95.9 - Hypotension, unspecified Chest pain Qualifiers: Chest pain type: unspecified Qualified Code(s): R07.9 - Chest pain, unspecified The scribe's documentation has been prepared under my direction and personally reviewed by me in its entirety. I confirm that the note above accurately reflects all work, treatment, procedures, and medical decision making performed by me.
[2019-07-17] MEDS ORDERED: PHENYLEPHRINE 100MCG/ML 5ML SYR ONE (20:26)
--- NOTE | 2019-07-17 20:32 | Operative Report ---
PG Post Operative Report Pre & Post Diagnosis Operation Date: 07/17/19 20:00 Pre-Op Diagnosis: Left ureteral stent Post-Op Diagnosis: Left ureteral stent Procedure Cystoscopy with left retrograde pyelogram, aspiration, stone extraction, and stent Operation Date: 07/17/19 20:00 <No data on this case meets the specified criteria> Surgeon Romero Killian, II, DO [employer] None Estimated Blood Loss 1 Findings Consistent with Post-Op Diagnosis Obstructing stone on left, dislodged to UO with wire placement. Extracted to place stent. Specimens 1. Urine left kidney 2. stone for analysis. Drains 6 Fr Multilength on Left Anesthesia Type MAC Complications none Disposition Disposition: Recovery Room Indications Patient with fever and stone in left ureter. risks and benefits discussed at [facility]. Description of Procedure Patient was consented and brought back to the operating room. Patient was placed under anesthesia in the supine position and moved to the dorsal lithotomy position. Patient was prepped and draped in the regular sterile fashion. A time out was completed. A 30degree Cystoscope was placed into the bladder and the entire bladder was examined. The UO's were identified. The left was cannulized with a catheter, urine was aspirated, and a retrograde pyelogram was completed. Aspirated urine was sent for microscopic analysis. A wire was then placed. With wire placement, a stone fragment was dislodged down to the UO. This was manipulated and grasped and removed. This stone was sent for analysis. With the wire in place, a 6 Fr Double J stent was placed. It was confirmed with fluoroscopy. With the stent in place, the bladder was emptied. The scope was removed. The patient was cleaned, aroused from anesthesia, and transferred to the pacu in stable condition having tolerated the procedure well with no complications. I was present and participated in all aspects of the procedure. The patient will be monitored in the PACU until transferred. I attest to the content of the Intraoperative Record and any orders documented therein. Any exceptions are noted below.
[2019-07-17] MEDS ORDERED: INFLUENZA ADMINISTRATION CHARGE ONE ×2 (20:45)
[2019-07-17] MEDS ORDERED: INFLUENZA VACCINE HIGH DOSE 65+ 0.5 ML SYR IM ONE (20:45)
[2019-07-17] MEDS ORDERED: INFLUENZA VIRUS QUAD VACCINE 0.5 ML SYR IM ONE (20:45)
--- NOTE | 2019-07-17 20:53 | Fluoroscopy Report ---
FL retrograde includes kub CLINICAL HISTORY: LEFT SIDE CYSTO/STENT COMPARISON STUDY: Abdomen and pelvis CT 07/17/2019. FLUOROSCOPY TIME: 23 seconds. FINDINGS: 4 fluoroscopic spot images were submitted. There is retrograde opacification of the left re nal collecting system followed by placement of a guidewire and a left ureteral stent which appears in good position. IMPRESSION: Fluoroscopy provided for left ureteral stent placement which appears in good position. Electronically signed by: Ga Dias M.D. 07/17/2019 8:51 PM
--- NOTE | 2019-07-17 21:09 | Anesthesiology Progress Note ---
Date of Service July 17, 2019 Anesthesia Post Procedure Vital Signs Vital Signs: Temp Pulse Pulse Pulse Resp BP BP 07/17/19 21:05 36.9 C 69 18 94/51 L 07/17/19 20:55 68 16 91/51 L 07/17/19 20:45 75 20 94/52 L 07/17/19 20:37 37 C 75 18 82/47 L 07/17/19 19:36 37.2 C 85 16 84/48 L 07/17/19 19:02 39.1 C H 07/17/19 16:56 38 C H 94 H 18 07/17/19 16:45 90 165/74 H 07/17/19 16:00 78 23 07/17/19 15:30 66 156/70 H 07/17/19 15:00 64 149/74 H 07/17/19 14:57 65 07/17/19 14:55 67 149/75 H 07/17/19 14:34 68 18 145/75 H 07/17/19 13:47 75 07/17/19 12:37 36.6 C 98 H 20 99/61 L Pulse Ox 07/17/19 21:05 95 07/17/19 20:55 98 07/17/19 20:45 98 07/17/19 20:37 97 07/17/19 19:36 94 07/17/19 19:02 07/17/19 16:56 94 07/17/19 16:45 07/17/19 16:00 07/17/19 15:30 07/17/19 15:00 07/17/19 14:57 07/17/19 14:55 07/17/19 14:34 98 07/17/19 13:47 96 07/17/19 12:37 94 Pain Intensity Generalized: Pain Intensity: 6 Abdomen: Pain Intensity: 10 Transfer of Care Handoff Completed per policy Notes Mental Status: alert / awake / arousable and participated in evaluation Nausea / Vomiting: adequately controlled Pain: adequately controlled Airway Patency, RR, SpO2: stable & adequate BP & HR: stable & adequate Hydration State: stable & adequate Anesthetic Complications: no major complications apparent and Pt Satisfied with anesthetic care
[2019-07-17] MEDS: TAMSULOSIN HCL 0.4 MG CAP PO SCH (21:48)
[2019-07-17] MEDS: PIPERACILLIN/TAZOBACTAM 3.375 GM in DEXTROSE 5% 100 ML IV SCH (21:52)
[2019-07-18] MEDS ORDERED: ALUMINUM/MAGNESIUM/SIMETH (MAALOX MAX) 30 ML UDC PO STA (00:03)
[2019-07-18] MEDS ORDERED: ALUMINUM/MAGNESIUM SUSP 30 ML UDC ONE (00:07)
[2019-07-18] MEDS: INSULIN ASPART 100 UNITS/ML 3 ML PEN SC SCH ×5 (00:16→21:33)
[2019-07-18] MEDS ORDERED: Nursing to Pharmacy Communication ONE ×2 (00:26→12:47)
[2019-07-18] MEDS: ACETAMINOPHEN 1,000 MG/100 ML VIAL IV SCH ×3 (01:53→19:28)
[2019-07-18] MEDS ORDERED: VANCOMYCIN CONSULT ACTIVE PRN (02:55)
[2019-07-18] MEDS ORDERED: SODIUM CHLORIDE 0.9% 1000ML 1,000 ML IV SCH (03:00)
[2019-07-18] MEDS ORDERED: KETOROLAC TROMETHAMINE 15 MG/ML VIAL IV ONE (03:15)
[2019-07-18] MEDS ORDERED: VANCOMYCIN HCL 1,750 MG in SODIUM CHLORIDE 0.9% 500 ML IV ONE (03:30)
[2019-07-18] MEDS: SODIUM CHLORIDE 0.9% 1000ML 1,000 ML IV SCH ×2 (04:28→12:27)
[2019-07-18] MEDS: PIPERACILLIN/TAZOBACTAM 3.375 GM in DEXTROSE 5% 100 ML IV SCH ×3 (06:01→21:56)
[2019-07-18] MEDS: LEVOTHYROXINE SODIUM 125 MCG TABLET PO SCH (06:03)
[2019-07-18 06:10] LABS: Hematocrit (blood only) 34.5 % (42-52); Hemoglobin 11.4 g/dL (14.0-18.0); Mean Corpuscular Hemoglobin 27.4 pg (25-34); Mean Corpuscular Volume 82.9 fL (80-100); Mean Platelet Volume 8.9 fL (7.4-10.4); Platelet Count 122 K/uL (130-400); RDW Coefficient of Variation 14.1 % (11.5-14.5); RDW Standard Deviation 42.9 fL (36.4-46.3); Red Blood Count 4.16 M/uL (4.7-6.1); White Blood Count 7.11 K/uL (4.8-10.8)
[2019-07-18 06:46] LABS: Estimated Average Glucose 174 mg/dl; Hemoglobin A1C 7.7 % (4.5-5.6)
[2019-07-18 06:47] LABS: BUN Creatinine Ratio 22.3 (10-20); Calcium 7.6 mg/dl (8.5-10.1); Creatinine Clr Calc Pharmacy 48.6 ml/min; Est GFR (African American) 68.1; Est GFR (Non-African American) 58.8; Potassium 3.3 mmol/L (3.5-5.1)
--- NOTE | 2019-07-18 08:00 | Anesthesiology Progress Note ---
Date of Service July 18, 2019 Anesthesia Post Procedure Vital Signs Vital Signs: Temp Pulse Pulse Pulse Resp BP BP 07/18/19 07:26 36.8 C 72 16 89/49 L 07/18/19 07:15 69 07/18/19 04:42 91 H 07/18/19 04:04 37.6 C H 89 12 07/18/19 02:38 39.1 C H 99 H 14 07/18/19 01:48 39.5 C H 107 H 14 07/17/19 23:17 36.9 C 73 18 07/17/19 21:30 37.1 C 67 14 07/17/19 21:05 36.9 C 69 18 07/17/19 20:55 68 16 07/17/19 20:45 75 20 07/17/19 20:37 37 C 75 18 07/17/19 19:36 37.2 C 85 16 07/17/19 19:02 39.1 C H 07/17/19 16:56 38 C H 94 H 18 07/17/19 16:45 90 07/17/19 16:00 78 23 07/17/19 15:30 66 156/70 H 07/17/19 15:00 64 149/74 H 07/17/19 14:57 65 07/17/19 14:55 67 149/75 H 07/17/19 14:34 68 18 07/17/19 13:47 75 07/17/19 12:37 36.6 C 98 H 20 99/61 L BP Pulse Ox 07/18/19 07:26 94 07/18/19 07:15 07/18/19 04:42 07/18/19 04:04 96/52 L 93 07/18/19 02:38 93/54 L 93 07/18/19 01:48 110/62 95 07/17/19 23:17 106/61 95 07/17/19 21:30 109/58 L 94 07/17/19 21:05 94/51 L 95 07/17/19 20:55 91/51 L 98 07/17/19 20:45 94/52 L 98 07/17/19 20:37 82/47 L 97 07/17/19 19:36 84/48 L 94 07/17/19 19:02 07/17/19 16:56 94 07/17/19 16:45 165/74 H 07/17/19 16:00 07/17/19 15:30 07/17/19 15:00 07/17/19 14:57 07/17/19 14:55 07/17/19 14:34 145/75 H 98 07/17/19 13:47 96 07/17/19 12:37 94 Notes Mental Status: alert / awake / arousable and participated in evaluation Nausea / Vomiting: adequately controlled Pain: adequately controlled Airway Patency, RR, SpO2: stable & adequate BP & HR: stable & adequate Hydration State: stable & adequate
--- NOTE | 2019-07-18 08:36 | Pharmacy Report ---
Pharmacy Abx Dose Short Note - Date of Service July 18, 2019 - Assessment & Plan Assessment * 74 year old M with GPC bacteremia, diverticulitis, and POD 1 s/p ureteral stent placement with stone extraction * PMH: *myasthenia gravis*, immunocompromised 2nd prednisone 15 mg daily and mycophenolate, T2DM * Antibiotics * Ciprofloxacin x1 07/17 * Zosyn day 2 * Vancomycin day 2 * Cultures * 07/17 Blood cultures - 4/ GPC in chains * Lyme negative * Influenza A, B negative * Renal * SCr elevated to 1.4 mg/dL on admission, likely 2nd obstructive ureteral stone. SCr today down to 1.2 mg/dL. Anticipate ongoing improvement now that stone has been removed to baseline of ~0.9 mg/dL (per H&P) Antibiotics and myasthenia gravis * Many antibiotics may cause exacerbations of myasthenia gravis leading to severe respiratory depression * Strongest evidence for potential harm exists for fluoroquinolones, aminoglycosides, and macrolides * Adverse reaction may be delayed from time of administration (24-48 hours) * Patient received ciprofloxacin x1 dose yesterday @ 1518 * Spoke with Dr. Snell and patient's RN (Karen) - aware and will monitor for muscle weakness / respiratory depression Vancomycin * Vancomycin 25 mg/kg administered this AM * Patient has confirmed GPC bacteremia, is immunocompromised, and significant fever noted. Will therefore be slightly more aggressive with vancomycin dose for now * Anticipate renal function to improve to baseline rapidly now that stone has been removed - OK to dose more frequently than estimated t1/2 based on current SCr. Will base interval on estimated t1/2 using baseline SCr. Plan * Vancomycin 1000 mg IV q12h * Vancomycin trough 07/19 @ 1530 * Myasthenia gravis considerations * Avoid further use of fluoroquinolones * Prioritize de-escalation of current regimen if/when clinically indicated Pharmacy will continue to follow and will adjust dose/frequency as necessary. Thank you.
[2019-07-18] MEDS ORDERED: CLOBETASOL PROPIONATE 0.05% OINT 15 GM TUBE EXT SCH (09:00)
[2019-07-18] MEDS: PYRIDOSTIGMINE BROMIDE 60 MG TAB PO SCH ×3 (09:16→21:29)
[2019-07-18] MEDS: FLUTICASONE PROPIONATE NA SPR 16 GM BTL NAE SCH (09:16)
[2019-07-18] MEDS ORDERED: POTASSIUM CHLORIDE 20 MEQ TABCR PO ONE (12:45)
--- NOTE | 2019-07-18 14:16 | Urology Progress Note ---
Date of Service July 18, 2019 Assessment & Plan (1) Left ureteral stone: 74yo M with sepsis related to 8mm obs left ureteral stone, POD #1 s/p urgent left ureteral stent placement. Clinically and subjectively doing much better. Fevers improving. UC&S prelim positive, awaiting final culture. Pt will need two weeks of antibiotic coverage prior to definitive stone management. Plan for KUB in AM to assess stone visibility for potential ESWL in the future. Pt agreeable to plan of care. Will continue to monitor peripheraly while inpatient. Outpatient visit to discuss stone management to be arranged by our office. Subjective Pt doing much better this AM. Alert and oriented, states he subjectively feels much better. Tolerating clear liquid tray without difficulty. Voiding spontaneously without difficulty, does acknowledge hematuria but states its clearing up. No major stent irritation. Review of Systems Review of Systems: All systems reviewed & are unremarkable except as noted in HPI & below Physical Exam Constitutional: no acute distress and not ill appearing Eyes: no nystagmus ENMT: Ears: no hearing impairment Neck: trachea midline Respiratory: no respiratory distress and no cough Cardiovascular: Vessels: no JVD Chest (Breasts): Chest: normal inspection of chest Gastrointestinal (Abdomen): Inspection/Auscultation: abdomen not distended and no abdominal edema Percussion/Palpation: abdomen soft; abdomen nontender Musculoskeletal: Head/Neck/Chest: normocephalic and head atraumatic Skin: no rashes, warm and dry Neurologic: awake; not confused and not obtunded Psychiatric: Orientation: alert and oriented x 3 Eye Contact: good eye contact Affect: no depressed affect Genitourinary: bladder normal to inspection; no CVA tenderness Lymphatic: no lymphadenopathy and no lymphedema Results & Data Vital Signs (Past 12 Hours) Vital Signs Temp Pulse Pulse Resp BP BP Pulse Ox 07/18/19 11:11 37.6 C H 86 16 101/61 93 07/18/19 07:26 36.8 C 72 16 89/49 L 94 07/18/19 07:15 69 07/18/19 04:42 91 H 07/18/19 04:04 37.6 C H 89 12 96/52 L 93 07/18/19 02:38 39.1 C H 99 H 14 93/54 L 93 PG Care Time/CCT Total # of Minutes Spent Total Time Spent with Patient: Total time spent is greater than 50% in coordination of care (as documented) at patient's floor/unit and/or counseling patient:
[2019-07-18] MEDS: VANCOMYCIN HCL 1,000 MG in SODIUM CHLORIDE 0.9% 250 ML IV SCH (15:47)
--- NOTE | 2019-07-18 18:09 | Hospitalist Progress Note ---
Date of Service July 18, 2019 Assessment & Plan (1) Left ureteral stone: (2) Obstructive uropathy: Sepsis: Present with sepsis, meets criteria admitted with fever, leukocytosis tachycardia, blood culture 2 sets positive for gram-positive cocci, Source of infection complicated UTI: Blood culture positive for gram-positive cocci/obstructive uropathy Also evidence of sigmoid diverticulitis Status post left ureteric stent placement This has resolved after broad-spectrum antibiotic, IV fluid resuscitation Afebrile, white count normalized, Continue broad-spectrum antibiotic with Zosyn, repeat blood cultures ordered, ID eval requested This is a 74-year-old male who has a significant PMH of myasthenia gravis, HTN, HLD, hypothyroidism, GERD, BPH, steroid-induced diabetes and osteoporosis, diverticulosis who presents to [facility] ED secondary to not feeling well for 4 days. In ED patient did have leukocytosis 12.08, sodium 132, chloride 96, BUN 32, creatinine 1.40, glucose 214, lactic acid 1.52 LFTs and lipase WNL Urinalysis consistent with elevated specific gravity 1.037, trace protein, glucose and ketones, +1 blood, but negative for bacteria His influenza A and B and Lyme screen negative Chest x-ray negative for acute abnormality, mild interstitial thickening likely chronic. CT scan of abdomen pelvis reveals 8 mm obstructing stone within the left distal ureter resulting in moderate left hydronephrosis, along with sigmoid acute diverticulitis. Upon admission pt did not meet SIRS/Sepsis Criteria WBC 12.08 but afebrile, normotensive, HR < 90 LA 1.5 In ED received IV Cipro/Flagyl along with IVF(quinolones discontinued as can cause severe side effect in the setting of myasthenia gravis causing myasthenia crisis/acute respiratory failure) Diuretic changed IV Zosyn for dual coverage of acute dive rticulitis/nephrolithiasis with hydronephrosis in setting of myasthenia gravis Continue Flomiami Urology consulted - Dr. Killian patient is status post left ureteric stent placement (3) DALE (acute kidney injury): Due to dehydration/sepsis, Renal failure resolved, with IV hydration Creatinine improved to baseline, avoid NSAIDs nephrotoxins, continue to monitor Low potassium Replaced, repeat BMP (4) Acute diverticulitis: Abdomen pelvis shows early sign of diverticulitis and sigmoid colon Pain has significantly resolved, no diarrhea no nausea vomiting tolerating clear liquid diet well, diet advanced to low residue Continue IV zosyn Had recent colonoscopy 2 years back (5) Myasthenia gravis: continue mestinon hold cellcept and prednisone in setting of active infection With quinolones/aminoglycosides which can cause severe precipitation of myasthenia symptoms, adequate respiratory failure (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 Razo upon discharge Subjective Pt doing much better this AM. Has been afebrile Left lower quadrant pain, resolved after ureteric stent placement Voiding spontaneously, with intermittent hematuria Tolerating clear liquid diet, no nausea vomiting or diarrhea Leukocytosis has resolved, vitals stable Diet advanced to low residual Physical Exam Constitutional: WD/WN, vitals as above no acute distress Eyes: PERRL, conjunctivae normal, anicteric sclerae ENMT: external ear and nose normal, oropharynx normal Neck: trachea midline, no thyromegaly Respiratory: normal respiratory effort, lungs clear to auscultation Cardiovascular: RRR, no murmur, no edema Gastrointestinal (Abdomen): normal bowel sounds, soft, nontender, no hepatosplenomegaly Inspection/Auscultation: normal bowel sounds Percussion/Palpation: abdomen soft; abdomen nontender Musculoskeletal: no cyanosis or clubbing, extremities motor strength 5/5 Skin: no rashes, warm and dry Neurologic: PERRL, EOMI, accommodation nl, no face palsy, no dysarthria Psychiatric: A+Ox3, euthymic affect Results & Data Vital Signs (Past 12 Hours) Vital Signs Temp Pulse Pulse Pulse Resp BP Pulse Ox 07/18/19 15:32 37.5 C 72 16 117/68 94 07/18/19 15:24 71 07/18/19 11:11 37.6 C H 86 16 101/61 93 07/18/19 07:26 36.8 C 72 16 89/49 L 94 07/18/19 07:15 69
[2019-07-18] MEDS: TAMSULOSIN HCL 0.4 MG CAP PO SCH (21:30)
[2019-07-19] MEDS: ACETAMINOPHEN 1,000 MG/100 ML VIAL IV SCH ×2 (01:34→11:20)
[2019-07-19] MEDS: VANCOMYCIN HCL 1,000 MG in SODIUM CHLORIDE 0.9% 250 ML IV SCH (03:08)
[2019-07-19] MEDS: PIPERACILLIN/TAZOBACTAM 3.375 GM in DEXTROSE 5% 100 ML IV SCH (05:35)
[2019-07-19] MEDS: LEVOTHYROXINE SODIUM 125 MCG TABLET PO SCH (05:37)
[2019-07-19 06:23] LABS: Hematocrit (blood only) 34.7 % (42-52); Hemoglobin 11.8 g/dL (14.0-18.0); Mean Corpuscular Volume 82.4 fL (80-100); Mean Platelet Volume 8.3 fL (7.4-10.4); Platelet Count 114 K/uL (130-400); RDW Coefficient of Variation 14.3 % (11.5-14.5); Red Blood Count 4.21 M/uL (4.7-6.1); White Blood Count 5.98 K/uL (4.8-10.8)
[2019-07-19 07:04] LABS: BUN Creatinine Ratio 18.5 (10-20); Calcium 7.7 mg/dl (8.5-10.1); Creatinine Clr Calc Pharmacy 68.9 ml/min; Est GFR (African American) 97.4; Potassium 2.9 mmol/L (3.5-5.1)
[2019-07-19] MEDS ORDERED: POTASSIUM CHLORIDE 20 MEQ TABCR PO STA (07:34)
--- NOTE | 2019-07-19 07:59 | Urology Progress Note ---
Date of Service July 19, 2019 Assessment & Plan (1) Left ureteral stone: 74yo M with sepsis related to 8mm obs left ureteral stone, POD #2 s/p urgent left ureteral stent placement. Clinically and subjectively continues to improve. Fevers continue to improve. UC&S and BCx prelim positive, still awaiting final culture. Pt will need two weeks of antibiotic coverage prior to definitive stone management. Awaiting KUB to help determine outpatient treatment course, ESWL vs laser lithotripsy. Okay to discharge home with flomax, pain control and abx [id number] per our service when advisable by primary team. Thank you for allowing us to participate in the acute care of Mr. Poole. Please reconsult us with additional questions, concerns or changes in patient status. Subjective 74yo M with sepsis related to 8mm obs left ureteral stone, POD #2 s/p urgent left ureteral stent placement. Pt had an uneventful night Feels he is continuing to improve. States he is ready to get washed up and walk around, hopeful for discharge later today. No new issues or complaints from standpoint. Hematuria continues to lighten up. Review of Systems Review of Systems: All systems reviewed & are unremarkable except as noted in HPI & below Physical Exam Constitutional: no acute distress and not ill appearing corrective lenses intact Eyes: no nystagmus ENMT: Ears: no hearing impairment Neck: trachea midline Respiratory: no respiratory distress and no cough Cardiovascular: Vessels: no JVD Chest (Breasts): Chest: normal inspection of chest Gastrointestinal (Abdomen): Inspection/Auscultation: abdomen not distended and no abdominal edema Percussion/Palpation: abdomen soft; abdomen nontender Musculoskeletal: Head/Neck/Chest: normocephalic and head atraumatic Skin: no rashes, warm and dry Neurologic: awake; not confused and not obtunded Psychiatric: Orientation: alert and oriented x 3 Eye Contact: good eye contact Affect: no depressed affect Genitourinary: bladder normal to inspection; no CVA tenderness Lymphatic: no lymphadenopathy and no lymphedema Results & Data Vital Signs (Past 12 Hours) Vital Signs Temp Pulse Pulse Resp BP Pulse Ox 07/19/19 07:49 36.4 C L 68 18 110/66 96 07/19/19 06:56 67 07/19/19 03:18 37.6 C H 71 18 94/58 L 96 07/19/19 01:00 70 07/18/19 23:42 37.7 C H 86 18 94/53 L 93 PG Care Time/CCT Total # of Minutes Spent Total Time Spent with Patient: Total time spent is greater than 50% in department coordinator rdination of care (as documented) at patient's floor/unit and/or counseling patient:
[2019-07-19] MEDS ORDERED: POTASSIUM CHLORIDE / WTR 10 MEQ/100 ML PLCT IV ONE (08:00)
[2019-07-19] MEDS ORDERED: POTASSIUM CHLORIDE 20 MEQ TABCR PO ONE (08:00)
[2019-07-19 08:03] LABS: Magnesium 2.1 mg/dl (1.8-2.4)
--- NOTE | 2019-07-19 08:36 | XRay Report ---
XR KUB/Abdomen 1 view CLINICAL HISTORY: Nephrolithiasis. COMPARISON STUDY: CT scan dated 07/17/2019 FINDINGS: There is no pathologic bowel dilatation. There is a double pigtail left sided nephrouretera l stent. There is a 4 mm lower pole right renal calculus. There are amorphous calcifications projecte d over the upper pole of the left kidney, likely represent a mesenteric charleen calcification given the prior CT findings. There is a 4 mm mid left ureteral calculus projected over the left L5 transverse process IMPRESSION: 1. Right-sided nephrolithiasis. 2. Left-sided nephroureteral stent 3. 4 mm calcification projected over the stent at the L5 level, likely representing a mid left ureter al calculus Electronically signed by: Junior Damon M.D. 07/19/2019 8:35 AM
[2019-07-19] MEDS: PYRIDOSTIGMINE BROMIDE 60 MG TAB PO SCH ×3 (08:41→21:18)
[2019-07-19] MEDS: FLUTICASONE PROPIONATE NA SPR 16 GM BTL NAE SCH (08:42)
[2019-07-19] MEDS: CLOBETASOL PROPIONATE 0.05% OINT 15 GM TUBE EXT SCH (08:43)
[2019-07-19] MEDS: INSULIN ASPART 100 UNITS/ML 3 ML PEN SC SCH ×4 (08:44→21:20)
--- NOTE | 2019-07-19 10:40 | Infectious Disease Consult ---
Date of Consultation July 19, 2019 Assessment & Plan (1) Enterococcal sepsis: Patient with likely enterococcal sepsis from urinary tract infection in the setting of obstructive uropathy now status post ureteral stent placement. Will require at least 7 to 10 days of IV antibiotics given positive blood cultures with more prolonged oral antibiotics thereafter. Await final identification and sensitivities, will continue current treatment as improving for another 24 hours. Will follow. (2) Obstructive uropathy: (3) Left ureteral stone: History of Present Illness Reason for Consultation: Gram-positive bacteremia Attending Physician: Jolene Snell MD History of Present Illness 74-year-old male with history of hypertension, hypothyroidism, myasthenia gravis, BPH, prior nephrolithiasis, who was admitted to the hospital with 3 to 4-day history of progressively worsening suprapubic abdominal pain, fever and chills. Was found to have obstructive uropathy with stone, and has undergone cystoscopy with left ureteral stent placement for obstructing stone. Blood cultures now reported positive for gram-positive cocci in chains, and specimen from kidney also growing gram-positive cocci, probably enterococcus. Patient was started empirically on vancomycin and Zosyn, feeling significantly better today with resolution of abdominal pain. White count has improved. Allergies Allergy/AdvReac Type Severity Reaction Status Date / Time pollen extracts Allergy Intermediate . Unverified 07/17/19 13:55 Home Medications Home Medications Medication Instructions Recorded Confirmed Type alendronate 70 mg tablet 70 mg PO WK #4 tab 07/07/19 07/17/19 History calcium carbonate 600 mg (1,500 1 tab PO BID tab 07/07/19 07/17/19 History mg)-vitamin D3 200 unit tablet cholecalciferol (vitamin D3) 1,000 1,000 unit PO QAM cap 07/07/19 07/17/19 History unit capsule fluticasone propionate 50 2 spray INTRANASAL DAILY #1 gm 07/07/19 07/17/19 History mcg/actuation nasal spray,suspension halobetasol propionate 0.05 % 1 applic TOPICAL DAILY gm 07/07/19 07/17/19 History topical cream levothyroxine 125 mcg tablet 125 mcg PO QAM #30 tab 07/07/19 07/17/19 History metformin 1,000 mg tablet 1,000 mg PO BID #180 tab 07/07/19 07/17/19 History omeprazole 20 mg capsule,delayed 20 mg PO QPM #30 cap 07/07/19 07/17/19 History release prednisone 10 mg tablet 15 mg PO QAM tab 07/07/19 07/17/19 History pyridostigmine bromide 60 mg tablet 60 mg PO TID tab 07/07/19 07/17/19 History ramipril 2.5 mg tablet 2.5 mg PO QPM tab 07/07/19 07/17/19 History rosuvastatin 10 mg tablet 10 mg PO QAM #90 tab 07/07/19 07/17/19 History tamsulosin 0.4 mg capsule 0.4 mg PO QPM 07/07/19 07/17/19 History cyanocobalamin (vitamin B-12) 1,000 mcg PO QAM 07/17/19 07/17/19 History [Vitamin B-12] empagliflozin [Jardiance] 10 mg PO QAM 07/17/19 07/17/19 History mycophenolate mofetil [CellCept] 500 mg PO QAM 07/17/19 07/17/19 History Patient History Medical History HLD (hyperlipidemia) (Chronic) BPH (benign prostatic hyperplasia) (Chronic) Steroid-induced diabetes mellitus (Chronic) HTN (hypertension) (Chronic) Steroid-induced osteoporosis (Chronic) GERD (gastroesophageal reflux disease) (Chronic) Diverticulosis (Chronic) Myasthenia gravis (Chronic) Hypothyroidism (Chronic) Surgical History History of colonoscopy with polypectomy (Chronic) Family History Father , 72 Coronary heart disease Mother Cancer, Onset Age: 75 Brother Prostate cancer Sister Breast cancer Son Myocardial infarction, Onset Age: 30 Son Stroke Social History Preferred Language: Tajik Communication Ability: Effective Injection Maintenance Technician Required: No Beliefs That Will Affect Care: None Current Living Situation: Spouse Other Information That Helps Us Care for You: No Feels Safe at Home: Yes Safety Concerns: Feels Safe At This Time Smoking Status: Former smoker Do You Dip or Chew Tobacco: No ; Hx Alcohol Use: No Hx Substance Use: No Review of Systems Review of Systems: All systems reviewed & are unremarkable except as noted in HPI & below Physical Exam Constitutional: WD/WN, vitals as above comfortable; no acute distress Eyes: PERRL, conjunctivae normal, anicteric sclerae ENMT: external ear and nose normal, oropharynx normal Neck: trachea midline, no thyromegaly neck nontender Respiratory: normal respiratory effort, lungs clear to auscultation normal percussion; does not use accessory muscles Cardiovascular: Rate/Rhythm: regular rate and regular rhythm Heart Sounds: normal S1 and normal S2; no gallop, no murmur and no cardiac rub Vessels: normal peripheral pulses; no JVD Gastrointestinal (Abdomen): normal bowel sounds, soft, nontender, no hepatosplenomegaly Musculoskeletal: no cyanosis or clubbing, extremities motor strength 5/5 Spine: thoracic spine normal to inspection and lumbar spine normal to inspection; no cervical spinal tenderness Skin: no rashes, warm and dry normal turgor; no lesions Neurologic: patellar DTR's 2+ bilat, sensation intact no focal motor deficits Psychiatric: A+Ox3, euthymic affect Orientation: cooperative Lymphatic: no cervical or axillary lymphadenopathy no inguinal lymphadenopathy Results & Data Vital Signs (Past 12 Hours) Vital Signs Temp Pulse Pulse Resp BP Pulse Ox 07/19/19 07:49 36.4 C L 68 18 110/66 96 07/19/19 06:56 67 07/19/19 03:18 37.6 C H 71 18 94/58 L 96 07/19/19 01:00 70 07/18/19 23:42 37.7 C H 86 18 94/53 L 93 Laboratory Results Short CBC 07/19/19 Range/Units 06:03 WBC 5.98 (4.8-10.8) K/uL Hgb 11.8 L (14.0-18.0) g/dL Hct 34.7 L (42-52) % Plt Count 114 L (130-400) K/uL BMP 07/19/19 06:03 Sodium 137 Potassium 2.9 L Chloride 107 Carbon Dioxide 21 BUN 16 Creatinine 0.88 D Glucose 88 Calcium 7.7 L Diagnostic Findings Microbiology 07/17/19 18:00 Urine,Clean Catch Urine Culture - Final Three types of organisms present, all high counts probable skin ashley. No further identifications or sensitivities to follow. 07/17/19 13:33 Blood Aerobic Blood Culture - Preliminary Gram positive cocci in chains 07/17/19 13:33 Blood Anaerobic Blood Culture - Preliminary Gram positive cocci in chains 07/17/19 13:33 Blood Aerobic Blood Culture - Preliminary Gram positive cocci in chains 07/17/19 13:33 Blood Anaerobic Blood Culture - Preliminary Gram positive cocci in chains 07/17/19 Unknown Kidney,Left Gram Stain - Final 07/17/19 Unknown Kidney,Left Aerobic and Anaerobic Culture - Preliminary Gram positive cocci cc: ~ ABDOMEN AND PELVIS CT WITHOUT CONTRAST CT DOSE: 351.77 mGy.cm HISTORY: Lower abdominal pain. TECHNIQUE: Multiaxial CT images of the abdomen and pelvis were performed without contrast. A dose lowering technique was utilized adhering to the principles of ALARA. COMPARISON STUDY: None. FINDINGS: Emphysema and mild chronic interstitial thickening seen at the lung bases. No pneumoperitoneum. No pneumatosis. No suspicious lytic are blastic osseous lesions. The unenhanced liver, spleen, adrenal glands, and pancreas are unremarkable. A 5 mm gallstone. No gallbladder wall thickening. No retroperitoneal lymphadenopathy. Normal bladder. Multiple pelvic calcifications consistent with phleboliths. Suboptimal evaluation for bowel pathology due to the lack of intravenous and oral contrast. There are multiple colonic diverticula. Minimal fat stranding surrounding a single diverticulum within the mid sigmoid colon best seen on image 354. This is consistent with a developing acute diverticulitis. Fluid-filled colon. No evidence for bowel obstruction. Normal bladder. A 5 mm nonobstructing stone within the lower pole the right kidney. Moderate left hydronephrosis secondary to an obstructing 8 mm stone within the distal left ureter on image 355. This is beyond the level of the left iliac vessels. IMPRESSION: 1. An 8 mm obstructing stone within the distal left ureter resulting in moderate left hydronephrosis. 2. Right-sided nephrolithiasis. 3. Minimal inflammatory change adjacent to a diverticulum at the mid sigmoid colon. This likely represents a developing acute diverticulitis. 4. Cholelithiasis. No gallbladder wall thickening. 5. Emphysema. Electronically signed by: Ga Dias M.D. 07/17/2019 2:10 PM Dictated: 07/17/19 1405 Transcribed: 07/17/19 1405 PG Care Time/CCT Total # of Minutes Spent Total Time Spent with Patient: Total time spent is greater than 50% in coordination of care (as documented) at patient's floor/unit and/or counseling patient:
[2019-07-19] MEDS ORDERED: ACETAMINOPHEN 325 MG TAB PO PRN (13:30)
--- NOTE | 2019-07-19 13:39 | Hospitalist Progress Note ---
Date of Service July 19, 2019 Subjective ATTENDING NOTE: Patient has confirmed bacteremia: Gram-positive positive cocci in chains(possible enterococcus) Source of infection: Complicated UTI Urine culture: Growing enterococcus Sensitive to daptomycin Discussed with ID Dr. Real Will discontinue Zosyn, vancomycin Will need IV antibiotic for 10 days Changed to IV daptomycin 6 mg/kg daily Ordered for ultrasound-guided IV site to be placed Prescription will be given to case management for home IV antibiotic Jolene Snell MD Results & Data Vital Signs (Past 12 Hours) Vital Signs Temp Pulse Pulse Resp BP Pulse Ox 07/19/19 11:09 36.4 C L 89 17 112/68 96 07/19/19 07:49 36.4 C L 68 18 110/66 96 07/19/19 06:56 67 07/19/19 03:18 37.6 C H 71 18 94/58 L 96
[2019-07-19] MEDS ORDERED: DAPTOmycin 400 MG in SYRINGE 0 ML IV ONE (14:00)
[2019-07-19] MEDS ORDERED: VANCOMYCIN TROUGH ONE (15:30)
--- NOTE | 2019-07-19 15:43 | Hospitalist Progress Note ---
Date of Service July 19, 2019 Assessment & Plan (1) Left ureteral stone: Patient presented with sepsis, with 8 mm obstructed left ureteral stone, postoperative day 2 status post urgent left ureteral stent placement Clinically patient continues to improve, afebrile Urine culture: Enterococcus, sensitive to daptomycin Blood culture 2 sets, gram-positive cocci: Possible enterococci Repeat blood cultures ordered, awaiting report ID evaluation requested, appreciate input from Dr. Real Patient will need 7 more days of antibiotic treatment (total 10 days) Antibiotic is changed to daptomycin's once daily, for ease of outpatient administration Ultrasound guided IV site will be placed Patient will be discharged on daptomycin for 425 mg IV daily(6 mg/kg body weight dose, for sepsis and bacteremia) Patient does not need lab work to be checked during antibiotic treatment, for short duration Ordered baseline CPK level for today Patient is not on any statin Prescription for daptomycin given to case management : Prescription was faxed to the [facility], also home health referral made to [facility] Ultrasound-guided peripheral IV line will be placed, Possible discharge home tomorrow if home antibiotics set up is complete (2) Obstructive uropathy: Sepsis: Present with sepsis, meets criteria admitted with fever, leukocytosis tachycardia, blood culture 2 sets positive for gram-positive cocci, Source of infection complicated UTI: Blood culture positive for gram-positive cocci/obstructive uropathy Also evidence of sigmoid diverticulitis Status post left ureteric stent placement This has resolved after broad-spectrum antibiotic, IV fluid resuscitation Afebrile, white count normalized, Continue broad-spectrum antibiotic with Zosyn Initial blood cultures: Gram-positive cocci in chain , repeat blood cultures ordered, ID eval requested Will need 10 days of IV antibiotics, Patient will be discharged on IV home daptomycin treatment as outlined above This is a 74-year-old male who has a significant PMH of myasthenia gravis, HTN, HLD, hypothyroidism, GERD, BPH, steroid-induced diabetes and osteoporosis, diverticulosis who presents to [facility] ED secondary to not feeling well for 4 days. In ED patient did have leukocytosis 12.08, sodium 132, chloride 96, BUN 32, creatinine 1.40, glucose 214, lactic acid 1.52 LFTs and lipase WNL Urinalysis consistent with elevated specific gravity 1.037, trace protein, glucose and ketones, +1 blood, but negative for bacteria His influenza A and B and Lyme screen negative Chest x-ray negative for acute abnormality, mild interstitial thickening likely chronic. CT scan of abdomen pelvis reveals 8 mm obstructing stone within the left distal ureter resulting in moderate left hydronephrosis, along with sigmoid acute diverticulitis. Upon admission pt did not meet SIRS/Sepsis Criteria WBC 12.08 but afebrile, normotensive, HR < 90 LA 1.5 In ED received IV Cipro/Flagyl along with IVF(quinolones discontinued as can cause severe side effect in the setting of myasthenia gravis causing myasthenia crisis/acute respiratory failure) Antibiotic changed IV Zosyn for dual coverage of acute diverticulitis/nephrolithiasis with hydronephrosis in setting of myasthenia gravis Continue Flomax Urology consulted - Dr. Killian patient is status post left ureteric stent placement Will be followed up at urology clinic in 2 weeks for stent removal (3) DALE (acute kidney injury): Due to dehydration/sepsis, Renal failure resolved, with IV hydration Creatinine improved to baseline, avoid NSAIDs nephrotoxins, continue to monitor Low potassium Replaced, repeat BMP (4) Acute diverticulitis: Symptom has completely resolved, no abdominal pain, no diarrhea, tolerating diet well Abdomen pelvis shows early sign of diverticulitis and sigmoid colon Pain has significantly resolved, no diarrhea no nausea vomiting tolerating clear liquid diet well, diet advanced to low residue Will noted need gram-negative antibiotic coverage, Be discharged with IV daptomycin for enterococci UTI and bacteremia Had recent colonoscopy 2 years back (5) Myasthenia gravis: continue mestinon cellcept and prednisone was kept on hold secondary to presentation with sepsis With quinolones/aminoglycosides which can cause severe precipitation of myasthenia symptoms, adequate respiratory failure Patient is clinically recovered Outpatient meds: CellCept and prednisone will be resumed on discharge (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 Razo upon discharge Subjective Patient reports of feeling fine, no complaint of abdominal pain or flank pain Had not had any fever or chills, Energy back to baseline, No tremor The hallway twice with no complaint of dizzy spell lightheadedness, no discomfort Hematuria almost resolved Physical Exam Constitutional: WD/WN, vitals as above no acute distress Eyes: PERRL, conjunctivae normal, anicteric sclerae ENMT: external ear and nose normal, oropharynx normal Neck: trachea midline, no thyromegaly Respiratory: normal respiratory effort, lungs clear to auscultation Cardiovascular: RRR, no murmur, no edema Gastrointestinal (Abdomen): normal bowel sounds, soft, nontender, no hepatosplenomegaly Inspection/Auscultation: normal bowel sounds Percussion/Palpation: abdomen soft; abdomen nontender Musculoskeletal: no cyanosis or clubbing, extremities motor strength 5/5 Skin: no rashes, warm and dry Neurologic: PERRL, EOMI, accommodation nl, no face palsy, no dysarthria Psychiatric: A+Ox3, euthymic affect Results & Data Vital Signs (Past 12 Hours) Vital Signs Temp Pulse Pulse Resp BP Pulse Ox 07/19/19 11:09 36.4 C L 89 17 112/68 96 07/19/19 07:49 36.4 C L 68 18 110/66 96 07/19/19 06:56 67
[2019-07-19] MEDS: TAMSULOSIN HCL 0.4 MG CAP PO SCH (21:18)
[2019-07-20] MEDS: LEVOTHYROXINE SODIUM 125 MCG TABLET PO SCH (05:30)
[2019-07-20 06:23] LABS: BUN Creatinine Ratio 14.8 (10-20); Creatinine Clr Calc Pharmacy 72.2 ml/min; Est GFR (African American) 99.3; Est GFR (Non-African American) 85.7
[2019-07-20] MEDS: INSULIN ASPART 100 UNITS/ML 3 ML PEN SC SCH ×4 (09:00→21:18)
[2019-07-20] MEDS: DAPTOmycin 400 MG in SYRINGE 0 ML IV SCH (09:00)
[2019-07-20] MEDS: PYRIDOSTIGMINE BROMIDE 60 MG TAB PO SCH ×3 (09:00→21:16)
[2019-07-20] MEDS: CLOBETASOL PROPIONATE 0.05% OINT 15 GM TUBE EXT SCH (09:02)
[2019-07-20] MEDS: FLUTICASONE PROPIONATE NA SPR 16 GM BTL NAE SCH (09:03)
[2019-07-20] MEDS: POTASSIUM CHLORIDE 10 MEQ TABCR PO SCH ×2 (12:36→21:15)
[2019-07-20] MEDS: CIPROFLOXACIN 500 MG TAB PO SCH ×2 (12:36→21:15)
--- NOTE | 2019-07-20 16:36 | Hospitalist Progress Note ---
Date of Service July 20, 2019 Assessment & Plan (1) Left ureteral stone: per Dr. Snell notes: Patient presented with sepsis, with 8 mm obstructed left ureteral stone, postoperative day 2 status post urgent left ureteral stent placement Clinically patient continues to improve, afebrile Urine culture: Enterococcus, sensitive to daptomycin Blood culture 2 sets, gram-positive cocci: Possible enterococci Repeat blood cultures ordered: Negative ID evaluation requested, appreciate input from Dr. Real Patient will need at least 10 days of IV daptomycin Patient will be discharged on daptomycin for 425 mg IV daily(6 mg/kg body weight dose, for sepsis and bacteremia) Patient does not need lab work to be checked during antibiotic treatment, for short duration Discharge home tomorrow if patient remains afebrile (2) Obstructive uropathy: per Dr. Snell notes: Sepsis: Present with sepsis, meets criteria admitted with fever, leukocytosis tachycardia, blood culture 2 sets positive for gram-positive cocci, Source of infection complicated UTI: Blood culture positive for gram-positive cocci/obstructive uropathy Also evidence of sigmoid diverticulitis Status post left ureteric stent placement This has resolved after broad-spectrum antibiotic, IV fluid resuscitation Afebrile, white count normalized, Continue broad-spectrum antibiotic with Zosyn Initial blood cultures: Gram-positive cocci in chain , repeat blood cultures ordered, ID eval requested Will need 10 days of IV antibiotics, Patient will be discharged on IV home daptomycin treatment as outlined above Urology consulted - Dr. Killian patient is status post left ureteric stent placement Continue Flomax Will be followed up at urology clinic in 2 weeks for stent removal (3) DALE (acute kidney injury): Continue Flomax Due to dehydration/sepsis, Renal failure resolved, with IV hydration Creatinine improved to baseline, avoid NSAIDs nephrotoxins, continue to monitor Low potassium Replaced, repeat BMP (4) Acute diverticulitis: Symptom has completely resolved, no abdominal pain, no diarrhea, tolerating diet well Abdomen pelvis shows early sign of diverticulitis and sigmoid colon Pain has significantly resolved, no diarrhea no nausea vomiting tolerating clear liquid diet well, diet advanced to low residue Had recent colonoscopy 2 years back Discussed with infectious disease service, Dr. Real, recommend ciprofloxacin 5 mg twice a day x10 days Outpatient GI referral for colonoscopy in 4 to 6 weeks (5) Myasthenia gravis: continue mestinon cellcept and prednisone was kept on hold secondary to presentation with sepsis With quinolones/aminoglycosides which can cause severe precipitation of myasthenia symptoms, adequate respiratory failure --We will discuss with patient's neurologist Dr. 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 Razo upon discharge Subjective Follow-up for sepsis with enterococcus UTI, gram-positive cocci bacteremia, left ureter stone Seen resting in bed, comfortable, no distress Reports feeling improved compared to admission Denies abdominal pain, flank pain, dysuria or any other urinary symptoms positive fever episode yesterday 38.4 Denies weakness, diplopia, dysphagia Ambulating the hallways with no problems No other symptoms Review of Systems Review of Systems: All systems reviewed & are unremarkable except as noted in HPI & below Physical Exam Physical Exam: General- oriented x 3, not in distress, speaks in sentences with no effort or accessory muscle use Head- atraumatic Eyes- PERRL, EOMI, anicteric ENT- oropharynx clear Neck- supple, no JVD, no adenopathy, no thyromegaly; carotids +2/2, no bruits appreciated Lungs- clear to auscultation bilaterally, no rales/wheezes Heart- normal rate, regular rhythm; no murmur, no gallop, no rub appreciated Abdomen- normal bowel sounds, nondistended, soft, nontender, no masses or hepatosplenomegaly No CVA tenderness Extremities- no pretibial edema, no calf tenderness; peripheral pulses intact Neuro- alert, oriented x 3; CN 2-12 grossly intact; motor 5/5 bilaterally;sensation 100% on all extremities; no other gross focal neurologic deficits Skin- warm & dry Results & Data Vital Signs (Past 12 Hours) Vital Signs Temp Pulse Resp BP BP Pulse Ox 07/20/19 14:58 36.5 C 81 19 102/62 98 07/20/19 07:28 37 C 76 16 103/62 94 Laboratory Results Laboratory Results - last 24 hr 07/19/19 07/19/19 07/20/19 17:28 20:55 05:37 Sodium 137 Potassium 3.0 L Chloride 106 Carbon Dioxide 23 Anion Gap 8.0 BUN 12 Creatinine 0.84 Est Cr Clr Drug Dosing 72.2 Est GFR ( Amer) 99.3 Est GFR (Non-Af Amer) 85.7 BUN/Creatinine Ratio 14.8 Glucose 123 H POC Glucose 106 H 166 H Calcium 8.0 L 07/20/19 07/20/19 08:16 11:59 Sodium Potassium Chloride Carbon Dioxide Anion Gap BUN Creatinine Est Cr Clr Drug Dosing Est GFR ( Amer) Est GFR (Non-Af Amer) BUN/Creatinine Ratio Glucose POC Glucose 120 H 158 H Calcium
[2019-07-20] MEDS: predniSONE 5 MG TAB PO SCH (17:36)
[2019-07-20] MEDS: MYCOPHENOLATE MOFETIL 250 MG CAP PO SCH (17:36)
--- NOTE | 2019-07-20 21:10 | Infectious Disease Progress Nt ---
Date of Service July 20, 2019 Subjective Patient seen in follow-up for enterococcal sepsis and pyelonephritis. Feeling better, no flank pain. Remains afebrile. Follow-up cultures are negative to date. Review of Systems Review of Systems: All systems reviewed & are unremarkable except as noted in HPI & below Physical Exam Constitutional: WD/WN, vitals as above comfortable; no acute distress Eyes: PERRL, conjunctivae normal, anicteric sclerae ENMT: external ear and nose normal, oropharynx normal Neck: trachea midline, no thyromegaly neck nontender Respiratory: normal respiratory effort, lungs clear to auscultation normal percussion; does not use accessory muscles Cardiovascular: Rate/Rhythm: regular rate and regular rhythm Heart Sounds: normal S1 and normal S2; no gallop, no murmur and no cardiac rub Vessels: normal peripheral pulses; no JVD Gastrointestinal (Abdomen): normal bowel sounds, soft, nontender, no hepatosplenomegaly Musculoskeletal: no cyanosis or clubbing, extremities motor strength 5/5 Spine: thoracic spine normal to inspection and lumbar spine normal to inspection; no cervical spinal tenderness Skin: no rashes, warm and dry normal turgor; no lesions Neurologic: patellar DTR's 2+ bilat, sensation intact no focal motor deficits Psychiatric: A+Ox3, euthymic affect Orientation: cooperative Lymphatic: no cervical or axillary lymphadenopathy no inguinal lymphadenopathy Results & Data Vital Signs (Past 12 Hours) Vital Signs Temp Pulse Resp BP Pulse Ox 07/20/19 14:58 36.5 C 81 19 102/62 98 Laboratory Results Laboratory Results - last 48 hr 07/19/19 07/19/19 07/19/19 06:03 06:03 06:03 WBC 5.98 RBC 4.21 L Hgb 11.8 L Hct 34.7 L MCV 82.4 MCH 28.0 MCHC 34.0 RDW Std Deviation 43.0 RDW Coeff of [place] 14.3 Plt Count 114 L MPV 8.3 Sodium 137 Potassium 2.9 L Chloride 107 Carbon Dioxide 21 Anion Gap 10.0 BUN 16 Creatinine 0.88 D Est Cr Clr Drug Dosing 68.9 Est GFR ( Amer) 97.4 Est GFR (Non-Af Amer) 84.0 BUN/Creatinine Ratio 18.5 Glucose 88 POC Glucose Calcium 7.7 L Magnesium 2.1 Cancelled 1007/19/19 07/19/19 07:40 11:30 13:46 WBC RBC Hgb Hct MCV MCH MCHC RDW Std Deviation RDW Coeff of [place] Plt Count MPV Sodium Potassium 3.5 D Chloride Carbon Dioxide Anion Gap BUN Creatinine Est Cr Clr Drug Dosing Est GFR ( Amer) Est GFR (Non-Af Amer) BUN/Creatinine Ratio Glucose POC Glucose 107 H 141 H Calcium Magnesium 07/19/19 07/19/19 07/20/19 17:28 20:55 05:37 WBC RBC Hgb Hct MCV MCH MCHC RDW Std Deviation RDW Coeff of [place] Plt Count MPV Sodium 137 Potassium 3.0 L Chloride 106 Carbon Dioxide 23 Anion Gap 8.0 BUN 12 Creatinine 0.84 Est Cr Clr Drug Dosing 72.2 Est GFR ( Amer) 99.3 Est GFR (Non-Af Amer) 85.7 BUN/Creatinine Ratio 14.8 Glucose 123 H POC Glucose 106 H 166 H Calcium 8.0 L Magnesium 07/20/19 07/20/19 07/20/19 08:16 11:59 16:20 WBC RBC Hgb Hct MCV MCH MCHC RDW Std Deviation RDW Coeff of [place] Plt Count MPV Sodium Potassium Chloride Carbon Dioxide Anion Gap BUN Creatinine Est Cr Clr Drug Dosing Est GFR ( Amer) Est GFR (Non-Af Amer) BUN/Creatinine Ratio Glucose POC Glucose 120 H 158 H 139 H Calcium Magnesium 07/20/19 19:10 WBC RBC Hgb Hct MCV MCH MCHC RDW Std Deviation RDW Coeff of [place] Plt Count MPV Sodium Potassium Chloride Carbon Dioxide Anion Gap BUN Creatinine Est Cr Clr Drug Dosing Est GFR ( Amer) Est GFR (Non-Af Amer) BUN/Creatinine Ratio Glucose POC Glucose 126 H Calcium Magnesium Diagnostic Findings Microbiology 07/18/19 12:34 Blood Aerobic Blood Culture - Preliminary No growth in Aerobic bottle after 48 hours. 07/18/19 12:34 Blood Anaerobic Blood Culture - Preliminary No growth in Anaerobic bottle after 48 hours. 07/18/19 12:43 Blood Aerobic Blood Culture - Preliminary No growth in Aerobic bottle after 48 hours. 07/18/19 12:43 Blood Anaerobic Blood Culture - Preliminary No growth in Anaerobic bottle after 48 hours. 07/17/19 Unknown Kidney,Left Gram Stain - Final 07/17/19 Unknown Kidney,Left Aerobic and Anaerobic Culture - Preliminary Enterococcus faecalis 07/17/19 18:00 Urine,Clean Catch Urine Culture - Final Three types of organisms present, all high counts probable skin ashley. No further identifications or sensitivities to follow. 07/17/19 13:33 Blood Aerobic Blood Culture - Preliminary Gram positive cocci in chains CLINICAL HISTORY: Nephrolithiasis. COMPARISON STUDY: CT scan dated 07/17/2019 FINDINGS: There is no pathologic bowel dilatation. There is a double pigtail left sided nephroureteral stent. There is a 4 mm lower pole right renal calculus. There are amorphous calcifications projected over the upper pole of the left kidney, likely represent a mesenteric charleen calcification given the prior CT findings. There is a 4 mm mid left ureteral calculus projected over the left L5 transverse process IMPRESSION: 1. Right-sided nephrolithiasis. 2. Left-sided nephroureteral stent 3. 4 mm calcification projected over the stent at the L5 level, likely representing a mid left ureteral calculus Electronically signed by: Junior Damon M.D. 07/19/2019 8:35 AM Dictated: 07/19/19831 Transcribed: 07/19/1932 07/17/19 13:33 Blood Anaerobic Blood Culture - Preliminary Gram positive cocci in chains 07/17/19 13:33 Blood Aerobic Blood Culture - Preliminary Gram positive cocci in chains 07/17/19 13:33 Blood Anaerobic Blood Culture - Preliminary Gram positive cocci in chains PG Care Time/CCT Total # of Minutes Spent Total Time Spent with Patient: Total time spent is greater than 50% in coordination of care (as documented) at patient's floor/unit and/or counseling patient:
[2019-07-20] MEDS: TAMSULOSIN HCL 0.4 MG CAP PO SCH (21:15)
[2019-07-21] MEDS: LEVOTHYROXINE SODIUM 125 MCG TABLET PO SCH (05:51)
[2019-07-21] MEDS: POTASSIUM CHLORIDE 10 MEQ TABCR PO SCH (09:13)
[2019-07-21] MEDS: CIPROFLOXACIN 500 MG TAB PO SCH (09:13)
[2019-07-21] MEDS: PYRIDOSTIGMINE BROMIDE 60 MG TAB PO SCH ×2 (09:13→14:58)
[2019-07-21] MEDS: predniSONE 5 MG TAB PO SCH (09:14)
[2019-07-21] MEDS: CLOBETASOL PROPIONATE 0.05% OINT 15 GM TUBE EXT SCH (09:14)
[2019-07-21] MEDS: MYCOPHENOLATE MOFETIL 250 MG CAP PO SCH (09:14)
[2019-07-21] MEDS: FLUTICASONE PROPIONATE NA SPR 16 GM BTL NAE SCH (09:14)
[2019-07-21] MEDS: INSULIN ASPART 100 UNITS/ML 3 ML PEN SC SCH ×2 (09:17→13:16)
[2019-07-21] MEDS: DAPTOmycin 400 MG in SYRINGE 0 ML IV SCH (09:20)
--- NOTE | 2019-07-21 13:42 | Hospitalist Progress Note ---
Date of Service July 21, 2019 Assessment & Plan (1) Left ureteral stone: Sepsis secondary to UTI, Bacteremia, in the setting of left ureteral stone per Dr. Snell notes: Patient presented with sepsis, with 8 mm obstructed left ureteral stone status post urgent left ureteral stent placement by Dr. Romero Killian [facility] [place] culture: Enterococcus, sensitive to daptomycin Blood culture 2 sets, gram-positive cocci in chains Repeat blood cultures ordered: Negative ID consulted-Dr. Real recommends at least 10 days of IV daptomycin patient clinically improved Patient will be discharged on daptomycin for 425 mg IV daily(6 mg/kg body weight dose, for sepsis and bacteremia) Patient does not need lab work to be checked during antibiotic treatment, for short duration Remain afebrile x24 hours, patient significantly improved Discharge to home with IV daptomycin x7 more days to complete 10 days of therapy Follow-up with urologist [facility] in 10 days (2) Obstructive uropathy: Renal function improved with IV hydration (3) DALE (acute kidney injury): Due to dehydration/sepsis Renal failure resolved with IV hydration Creatinine improved to baseline, avoid NSAIDs nephrotoxins, continue to monitor Low potassium K supplement ordered repeat PRP and Mg on ff up with PCP next week (4) Acute diverticulitis: Presented with left lower quadrant pain, diarrhea, fever CT Abdomen pelvis shows early sign of diverticulitis and sigmoid colon Pain has significantly resolved, no diarrhea no nausea vomiting tolerating clear liquid diet well, diet advanced to low residue Had recent colonoscopy 2 years back Discussed with infectious disease service, Dr. Real, recommend ciprofloxacin 500 mg twice a day x10 days Outpatient GI referral for colonoscopy in 4 to 6 weeks (5) Myasthenia gravis: Patient did not have worsening of myasthenia gravis during admission Discussed case with patient's neurologist Dr. 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 Razo upon discharge Subjective ff up for UTI, diverticulitis Seen resting in bedside chair, having lunch, in good spirits, comfortable Denies any urinary symptoms, flank pain, dysuria, hematuria, fevers or chills Denies abdominal pain, problems with bowel movement No other symptoms States he is ready and would like to be discharged today Review of Systems Review of Systems: All systems reviewed & are unremarkable except as noted in HPI & below Physical Exam Physical Exam: General- oriented x 3, not in distress, speaks in sentences with no effort or accessory muscle use Eyes- anicteric Neck- no JVD Lungs- clear breath sounds, no crackles or wheezing bilaterally Heart- normal rate, regular rhythm; no murmurs Abdomen- normal bowel sounds, nondistended, soft, no tenderness Extremities- no pretibial edema, no calf tenderness Neuro- alert, oriented x 3; no gross focal neurologic deficits Skin- warm & dry Results & Data Vital Signs (Past 12 Hours) Vital Signs Temp Pulse Resp BP Pulse Ox 07/21/19 07:11 36.3 C L 67 18 106/64 96 Laboratory Results Laboratory Results - last 24 hr 07/20/19 07/20/19 07/20/19 11:59 16:20 19:10 POC Glucose 158 H 139 H 126 H 07/20/19 07/21/19 07/21/19 21:09 07:56 11:58 POC Glucose 287 H 139 H 208 H
--- NOTE | 2019-07-21 14:25 | Infectious Disease Progress Nt ---
Date of Service July 21, 2019 Assessment & Plan (1) Enterococcal sepsis: Patient with likely enterococcal sepsis from urinary tract infection in the setting of obstructive uropathy now status post ureteral stent placement. Patient will receive 10 days of IV daptomycin followed by oral amoxicillin. Discussed with hospitalist. (2) Obstructive uropathy: (3) Left ureteral stone: Subjective Patient seen in follow-up for enterococcal bacteremia. Patient reports of feeling fine, no complaint of abdominal pain or flank pain Had not had any fever or chills, Energy back to baseline, No tremor The hallway twice with no complaint of dizzy spell lightheadedness, no discomfort Hematuria almost resolved Review of Systems Review of Systems: All systems reviewed & are unremarkable except as noted in HPI & below Physical Exam Constitutional: WD/WN, vitals as above comfortable; no acute distress Eyes: PERRL, conjunctivae normal, anicteric sclerae ENMT: external ear and nose normal, oropharynx normal Neck: trachea midline, no thyromegaly neck nontender Respiratory: normal respiratory effort, lungs clear to auscultation normal percussion; does not use accessory muscles Cardiovascular: Rate/Rhythm: regular rate and regular rhythm Heart Sounds: normal S1 and normal S2; no gallop, no murmur and no cardiac rub Vessels: normal peripheral pulses; no JVD Gastrointestinal (Abdomen): normal bowel sounds, soft, nontender, no hepatosplenomegaly Musculoskeletal: no cyanosis or clubbing, extremities motor strength 5/5 Spine: thoracic spine normal to inspection and lumbar spine normal to inspection; no cervical spinal tenderness Skin: no rashes, warm and dry normal turgor; no lesions Neurologic: patellar DTR's 2+ bilat, sensation intact no focal motor deficits Psychiatric: A+Ox3, euthymic affect Orientation: cooperative Lymphatic: no cervical or axillary lymphadenopathy no inguinal lymphadenopathy Results & Data Vital Signs (Past 12 Hours) Vital Signs Temp Pulse Pulse Pulse Resp BP BP 07/21/19 14:17 36.3 C L 69 66 67 18 106/64 125/67 07/21/19 14:10 36.3 C L 69 66 67 18 106/64 125/67 07/21/19 07:11 36.3 C L 67 18 106/64 Pulse Ox 07/21/19 14:17 96 07/21/19 14:10 96 07/21/19 07:11 96 Laboratory Results Laboratory Results - last 48 hr 07/19/19 07/19/19 07/20/19 17:28 20:55 05:37 Sodium 137 Potassium 3.0 L Chloride 106 Carbon Dioxide 23 Anion Gap 8.0 BUN 12 Creatinine 0.84 Est Cr Clr Drug Dosing 72.2 Est GFR ( Amer) 99.3 Est GFR (Non-Af Amer) 85.7 BUN/Creatinine Ratio 14.8 Glucose 123 H POC Glucose 106 H 166 H Calcium 8.0 L Magnesium 07/20/19 07/20/19 07/20/19 08:16 11:59 16:20 Sodium Potassium Chloride Carbon Dioxide Anion Gap BUN Creatinine Est Cr Clr Drug Dosing Est GFR ( Amer) Est GFR (Non-Af Amer) BUN/Creatinine Ratio Glucose POC Glucose 120 H 158 H 139 H Calcium Magnesium 07/20/19 07/20/19 07/21/19 19:10 21:09 07:56 Sodium Potassium Chloride Carbon Dioxide Anion Gap BUN Creatinine Est Cr Clr Drug Dosing Est GFR ( Amer) Est GFR (Non-Af Amer) BUN/Creatinine Ratio Glucose POC Glucose 126 H 287 H 139 H Calcium Magnesium 07/21/19 07/21/19 11:58 13:56 Sodium Potassium Chloride Carbon Dioxide Anion Gap BUN Creatinine Est Cr Clr Drug Dosing Est GFR ( Amer) Est GFR (Non-Af Amer) BUN/Creatinine Ratio Glucose POC Glucose 208 H Calcium Magnesium Cancelled Diagnostic Findings Microbiology 07/17/19 13:33 Blood Aerobic Blood Culture - Final Enterococcus faecalis 07/17/19 13:33 Blood Anaerobic Blood Culture - Final Enterococcus faecalis 07/17/19 13:33 Blood Aerobic Blood Culture - Final Enterococcus faecalis 07/17/19 13:33 Blood Anaerobic Blood Culture - Final Enterococcus faecalis 07/18/19 12:34 Blood Aerobic Blood Culture - Preliminary No growth in Aerobic bottle after 48 hours. 07/18/19 12:34 Blood Anaerobic Blood Culture - Preliminary No growth in Anaerobic bottle after 48 hours. 07/18/19 12:43 Blood Aerobic Blood Culture - Preliminary No growth in Aerobic bottle after 48 hours. 07/18/19 12:43 Blood Anaerobic Blood Culture - Preliminary No growth in Anaerobic bottle after 48 hours. 07/17/19 Unknown Kidney,Left Gram Stain - Final 07/17/19 Unknown Kidney,Left Aerobic and Anaerobic Culture - Preliminary Enterococcus faecalis 07/17/19 18:00 Urine,Clean Catch Urine Culture - Final Three types of organisms present, all high counts probable skin ashley. No further identifications or sensitivities to follow. PG Care Time/CCT Total # of Minutes Spent Total Time Spent with Patient: Total time spent is greater than 50% in coordination of care (as documented) at patient's floor/unit and/or counseling patient:
[2019-07-21 14:29] LABS: Magnesium 1.9 mg/dl (1.8-2.4); Potassium 4.1 mmol/L (3.5-5.1)
--- NOTE | 2019-07-22 19:34 | Discharge Summary ---
Date of Service July 22, 2019 Admission HPI Per Admitting Provider This is a 74-year-old male who has a significant PMH of myasthenia gravis, HTN, HLD, hypothyroidism, GERD, BPH, steroid-induced diabetes and osteoporosis, diverticulosis who presents to [facility] ED secondary to not feeling well for 4 days. Since he overall has not been feeling good. States "I felt so bad I totally lost Thursday, I cannot even remember Thursday." Initially symptoms started as arthralgias and myalgias, headache, nausea. Symptoms persisted and further developed diarrhea with incontinence of stool x3, and left lower quadrant abdominal pain. His left lower quadrant pain has been persistent mostly today, rated 8/10, nonradiating, never had in past, unsure if made worse with walking or movement. Nothing seems to make pain improved. Has not tried anything [id number]. Feels pain is worse since arrival. He denies any mely fever, chills, sweats, lightheadedness, dizziness, chest pain, shortness of breath, cough, hemoptysis, URI symptoms, emesis, hematochezia, melena, dysuria, increased urgency or frequency with urination, hematuria. He does elicit he has difficulty starting stream. Denies any recent antibiotic use. In ED patient did have leukocytosis 12.08, sodium 132, chloride 96, BUN 32, creatinine 1.40, glucose 214, lactic acid 1.52 LFTs and lipase WNL Urinalysis consistent with elevated specific gravity 1.037, trace protein, glucose and ketones, +1 blood, but negative for bacteria His influenza A and B and Lyme screen negative Chest x-ray negative for acute abnormality, mild interstitial thickening likely chronic. CT scan of abdomen pelvis reveals 8 mm obstructing stone within the left distal ureter resulting in moderate left hydronephrosis, along with sigmoid acute diverticulitis. Admission Exam Per Admitting Provider Constitutional: WD/WN male, + rigors, vitals as above, +pain, sitting up in bed, conversing easily Head: Normocephalic, Atraumatic Eyes: PERRL, conjunctivae normal, anicteric sclerae ENMT: external ear and nose normal, oropharynx dry mucous membranes Neck: trachea midline, no thyromegaly normal visual inspection Respiratory: normal respiratory effort, lungs clear to auscultation, no wheeze, rales, rhonchi. Normal insp/exp effort, no accessory muscle use Cardiovascular: RRR, no murmur, no edema Vessels: no JVD or carotid bruit Chest: normal inspection of chest Abdomen: normal bowel sounds, soft, + LLQ abd pain, no rebound, guarding, rigidity, no hepatosplenomegaly Musculoskeletal: no cyanosis or clubbing, extremities motor strength 5/5 Skin: no rashes, warm and dry normal turgor Neurologic: PERRL, EOMI, accommodation nl, no face palsy, no dysarthria CN's II-XI intact bilaterally and moves all extremities Psychiatric: A+Ox3, euthymic affect Lymphatic: no cervical or axillary lymphadenopathy : deferred Principal Diagnosis LEFT URETERAL STONE, WITH SEPSIS SECONDARY TO UTI, BACTEREMIA Discharge Exam General- oriented x 3, not in distress, speaks in sentences with no effort or accessory muscle use Eyes- anicteric Neck- no JVD Lungs- clear breath sounds, no crackles or wheezing bilaterally Heart- normal rate, regular rhythm; no murmurs Abdomen- normal bowel sounds, nondistended, soft, no tenderness Extremities- no pretibial edema, no calf tenderness Neuro- alert, oriented x 3; no gross focal neurologic deficits Skin- warm & dry Discharge Data Allergies Allergy/AdvReac Type Severity Reaction Status Date / Time pollen extracts Allergy Intermediate . Unverified 07/17/19 13:55 Consultations 07/17/19 15:11 ED Decision to Admit Stat 07/17/19 16:07 Consult Urology Routine 07/18/19 15:58 Consult Infectious Diseases Routine Procedures Performed Operation Date: 07/17/19 20:00 Actual Procedures p Cystoscopy, Retrograde Pyelogram, Stone Extraction, Left Stent Placement - Romero Killian II, DO Ordered Studies 07/17/19 13:04 CT abd pelvis wo con Stat ABDOMEN AND PELVIS CT WITHOUT CONTRAST CT DOSE: 351.77 mGy.cm HISTORY: Lower abdominal pain. TECHNIQUE: Multiaxial CT images of the abdomen and pelvis were performed without contrast. A dose lowering technique was utilized adhering to the principles of ALARA. COMPARISON STUDY: None. FINDINGS: Emphysema and mild chronic interstitial thickening seen at the lung bases. No pneumoperitoneum. No pneumatosis. No suspicious lytic are blastic osseous lesions. The unenhanced liver, spleen, adrenal glands, and pancreas are unremarkable. A 5 mm gallstone. No gallbladder wall thickening. No retroperitoneal lymphadenopathy. Normal bladder. Multiple pelvic calcifications consistent with phleboliths. Suboptimal evaluation for bowel pathology due to the lack of intravenous and oral contrast. There are multiple colonic diverticula. Minimal fat stranding surrounding a single diverticulum within the mid sigmoid colon best seen on image 354. This is consistent with a developing acute diverticulitis. Fluid-filled colon. No evidence for bowel obstruction. Normal bladder. A 5 mm nonobstructing stone within the lower pole the right kidney. Moderate left hydronephrosis secondary to an obstructing 8 mm stone within the distal left ureter on image 355. This is beyond the level of the left iliac vessels. IMPRESSION: 1. An 8 mm obstructing stone within the distal left ureter resulting in moderate left hydronephrosis. 2. Right-sided nephrolithiasis. 3. Minimal inflammatory change adjacent to a diverticulum at the mid sigmoid colon. This likely represents a developing acute diverticulitis. 4. Cholelithiasis. No gallbladder wall thickening. 5. Emphysema. 07/17/19 19:25 FL retrograde includes kub Routine XR chest 2V routine HISTORY: cough eval for pna COMPARISON: Chest CT 05/22/2016. FINDINGS: Mild interstitial thickening. This is likely chronic. Otherwise, no focal lung consolidations to suggest pneumonia. No pleural effusions. No pneumothorax. The heart is normal in size. Calcified left hilar/AP window lymph nodes are again noted. A 1 cm left perihilar nodular density. IMPRESSION: 1. No acute process within the chest. 2. Mild interstitial thickening which is likely chronic. 3. A 1 cm left perihilar nodular density. This is likely due to the normal pulmonary vessels. Follow-up nonemergent chest CT can be used for confirmation and to exclude the less likely possibility of a pulmonary nodule. Hospital Course (1) Left ureteral stone: with Sepsis secondary to UTI, Bacteremia per Dr. Snell notes: Patient presented with sepsis, with 8 mm obstructed left ureteral stone status post urgent left ureteral stent placement by Dr. Romero Killian [facility] Urine culture: Enterococcus, sensitive to daptomycin Blood culture 2 sets, gram-positive cocci in chains Repeat blood cultures ordered: Negative ID consulted-Dr. Real recommends Daptomycin IV patient clinically improved Remain afebrile x24 hours, patient significantly improved Discharge to home with IV daptomycin x7 more days to complete 10 days of therapy Follow-up with urologist [facility] in 10 days (2) Obstructive uropathy: Renal function improved with IV hydration (3) DALE (acute kidney injury): Due to dehydration/sepsis Renal failure resolved with IV hydration Creatinine improved to baseline, avoid NSAIDs nephrotoxins, continue to monitor Low potassium K supplement ordered repeat PRP and Mg on ff up with PCP next week (4) Acute diverticulitis: Presented with left lower quadrant pain, diarrhea, fever CT Abdomen pelvis shows early sign of diverticulitis and sigmoid colon Pain has significantly resolved, no diarrhea no nausea vomiting tolerating clear liquid diet well, diet advanced to low residue Discussed with infectious disease service, Dr. Real, recommend ciprofloxacin 500 mg twice a day x10 days Outpatient GI referral for colonoscopy in 4 to 6 weeks (5) Myasthenia gravis: Patient did not have worsening of myasthenia gravis during admission Discussed case with patient's neurologist Dr. Ribeiro from [facility] [address] He recommends to resume patient's usual prednisone, CellCept, Mestinon Follow-up with neurology as outpatient (6) Steroid-induced diabetes mellitus: A1c 06/20/2019 7.2 Secondary to steroid use due to myasthenia gravis Given insulin while admitted Continue usual metformin and Jardiance as outpatient (7) BPH (benign prostatic hyperplasia): Continue Flomax (8) HLD (hyperlipidemia): Continue Crestor (9) Cholelithiasis: incidental finding on CT abdomen asymptomatic monitor and follow up as outpatient (10) Abnormal chest xray: 1. No acute process within the chest. 2. Mild interstitial thickening which is likely chronic. 3. A 1 cm left perihilar nodular density. This is likely due to the normal pulmonary vessels. Follow-up nonemergent chest CT can be used for confirmation and to exclude the less likely possibility of a pulmonary nodule. -- Please order Chest CT as outpatient (11) DVT prophylaxis: patient is active and ambulatory at baseline SCD and teds , patient encouraged to ambulate Disposition: discharge home with home health services, IV antibiotics Follow up: PCP Dr. Razo ff up as outlined in DC instructions Total Time Total Time Spent Total Time Spent (In Minutes): 45 minutes Discharge Plan Discharge Items Patient Disposition: Home - Home Health Services Reason For Visit: ABD PAIN Discharge Diagnosis: Left ureteral stone, status post stent placement, sepsis secondary to urinary tract infection, bloodstream infection Activity: As commented below Activity Comment: No heavy exertion until reevaluated by primary care physician Lifting: Wait until after follow-up appointment Exercise/Sports: Wait until after follow-up appointment Driving/Machine Use: No driving until re-evaluated by Primary Care Physician Non-emergency contact: Primary Care Provider and Urologist Call non-emergency contact if: you have any medication questions, your symptoms worsen, your pain is not controlled, your pain is worsening, your pain is unusual for you and your pain is concerning for you Follow-up/Referrals: Romero Killian II, DO [Physician] - 07/27/19 9:30 am Robert No MD [Primary Care Provider] - 07/25/19 2:45 pm Diet: Carb Consistent or DM2 and Heart Healthy Addtl Attending Provider Instructions: Please follow-up with primary care physician and neurologist as outlined above. Please review new medication list and follow instructions carefully. Your new medications are: Daptomycin IV x7 days Ciprofloxacin 500 mg by mouth twice a day x9 days Potassium by mouth daily x7 days Always drink plenty of fluids. Include yogurt and a probiotic (example: Align, Culturelle) in your daily diet times at least 1 month Pending Studies at Discharge: No Stand-Alone Forms: My [facility] Medications and DC Order Prescriptions: New daptomycin 500 mg recon soln 425 mg IV DAILY 7 Days Qty: 7 RF: 0 ciprofloxacin HCl 500 mg Tablet 500 mg PO BID 9 Days Qty: 18 RF: 0 potassium chloride [Klor-Con M10] 10 mEq Tablet,Er Particles/Crystals 40 meq PO DAILY 7 Days Qty: 28 RF: 0 Continued ramipril 2.5 mg tablet 2.5 mg PO QPM RF: 0 rosuvastatin 10 mg tablet 10 mg PO QAM Qty: 90 RF: 0 cholecalciferol (vitamin D3) 1,000 unit capsule 1,000 unit PO QAM RF: 0 fluticasone propionate 50 mcg/actuation spray,suspension 2 spray intranasal DAILY Qty: 1 RF: 0 halobetasol propionate 0.05 % cream 1 applic topical DAILY RF: 0 omeprazole 20 mg capsule,delayed release(DR/EC) 20 mg PO QPM Qty: 30 RF: 0 pyridostigmine bromide 60 mg tablet 60 mg PO TID RF: 0 levothyroxine 125 mcg tablet 125 mcg PO QAM Qty: 30 RF: 0 metformin 1,000 mg tablet 1,000 mg PO BID Qty: 180 RF: 0 calcium carbonate-vitamin D3 600 mg(1,500mg) -200 unit tablet 1 tab PO BID RF: 0 alendronate 70 mg tablet 70 mg PO WK Qty: 4 RF: 0 prednisone 10 mg tablet 15 mg PO QAM RF: 0 tamsulosin [Flomax] 0.4 mg capsule 0.4 mg PO QPM RF: 0 cyanocobalamin (vitamin B-12) [Vitamin B-12] 1,000 mcg Tablet 1,000 mcg PO QAM RF: 0 mycophenolate mofetil [CellCept] 500 mg Tablet 500 mg PO QAM RF: 0 Jardiance 10 mg Tablet 10 mg PO QAM RF: 0 Discharge Orders: Discharge Order (Routine); Ordered 07/21/19 Ordered By: Nahum Blood/Other Patient Handouts: Ciprofloxacin Hydrochloride Oral tablet, Daptomycin Solution for injection Admission Data Admit Date/Time: 07/17/19 15:51 Attending Provider: Nahum Crouch Admit Provider: Jolene Snell Primary Care Provider: Robert No Other Providers: Jolene Snell ; Romero Killian II ; Ivan Rael Other Interventions: Discharge Summary Assessment (RN) Last Done: 07/21/19 14:17 DC Date/Time DO NOT enter until pt leaves facility: 07/21/19 15:23
[2019-07-25 07:59] LABS: Component 2 DNR
== END 2019-07-21 15:23 | disposition home health service (06) | DRG 854 ==
LOC: ED 12:34 → SUATTDRO 15:51 → 2N 15:51 → 3N 07-19 15:22
DX: T38.0X5A Adverse effect of glucocorticoids and synthetic analogues, initial encounter; N40.0 Benign prostatic hyperplasia without lower urinary tract symptoms; N20.1 Calculus of ureter; E10.9 Type 1 diabetes mellitus without complications; M81.0 Age-related osteoporosis without current pathological fracture; N13.9 Obstructive and reflux uropathy, unspecified; A41.81 Sepsis due to Enterococcus; I10 Essential (primary) hypertension; E78.5 Hyperlipidemia, unspecified; G70.00 Myasthenia gravis without (acute) exacerbation; N17.9 Acute kidney failure, unspecified; K57.92 Diverticulitis of intestine, part unspecified, without perforation or abscess without bleeding; E03.9 Hypothyroidism, unspecified; K21.9 Gastro-esophageal reflux disease without esophagitis

== ENCOUNTER 2022-02-17 07:52 | Inpatient (IN) ==
[2022-02-17] MEDS ORDERED: SODIUM CHLORIDE 0.9% 1000ML 1,000 ML IV SCH (08:00)
--- NOTE | 2022-02-17 08:04 | Emergency Department Note ---
Impression & Plan Diarrhea, Elevated troponin I level, Weakness ED Provider Note Provider: Sha Reagan MD DATE OF SERVICE: 02/17/2022 CHIEF COMPLAINT: Weakness, diarrhea HISTORY OF PRESENT ILLNESS: Patient is a 76-year-old gentleman history of diverticulitis, hyponatremia, myasthenia, kidney stones, hypothyroidism presenting today via ambulance from his home. Patient states that last night he started with nonbloody diarrhea fairly profuse overnight into the day. He is patient states he feels weak and fatigued but states he has not fallen or passed out. Denies any abdominal pain. Denies any chest pain or shortness of breath. Patient denies sick contacts or recent travel. He denies recent antibiotics. Patient denies a history of similar. Patient states he does not have an appetite and has been eating and drinking well. EMS report that the patient's daughter at scene told them the patient's been unwell for 2 to 3 days. Patient received 200 cc of normal saline prior to arrival. EMS note the patient has been tachycardic. REVIEW OF SYSTEMS: A total of 10 review of systems was obtained and negative except as stated above in the HPI. PAST MEDICAL HISTORY: As noted above MEDICATIONS: Reviewed home medication list SOCIAL HISTORY: Patient lives at home PHYSICAL EXAM: GENERAL: alert and oriented in no acute distress on stretcher Head: normocephalic and atraumatic EYES: No injection, discharge or icterus NECK: Trachea midline. ENT: Mucous membranes pink and slightly dry. LUNGS: Airway patent. No retractions. Breath sounds clear HEART: Regular tachycardic rate and rhythm. No chest wall tenderness ABDOMEN: Soft and non-tender, without guarding or rebound. SKIN: Acyanotic, warm, dry, without rashes EXTREMITIES: Without swelling, tenderness or deformity NEUROLOGICAL: No focal deficits. No aphasia. No facial droop or slurred speech. EK bpm sinus tachycardia without PVC or PAC. No acute ST segment elevation noted. QTc 446. Some questionable lateral ST depression. CONTINUOUS CARDIAC MONITORING: was ordered and showed a heart rate of 100s-140s bpm in normal sinus rhythm Patient's laboratory studies and imaging reviewed. Differential includes Infection, dehydration, metabolic abnormality, hypo/hyperglycemia, electrolyte disturbance, anemia, hypoxia, cardiac sources, intracerebral event, toxicologic, neurologic, as well as other pathologies. IMPRESSION/MEDICAL DECISION MAKING: Patient planing of generalized weakness with diarrhea profusely since last night nonbloody in nature. Benign abdomen. Denies fever or chills. Tachycardic upon arrival but appears to be a sinus tach. Given some IV fluid here. COVID, flu, blood work was sent. No risk factors currently for C. difficile but stool testing was ordered pending sample. Patient with a significant history of myasthenia gravis although denying significant respiratory symptoms she is compl aining of some generalized weakness. Question possible gastroenteritis. Given his mostly describes medication at risk for greater infections. Do not believe this is a myasthenic crisis at this time. Blood work with slight leukocytosis of 12. No anemia. Some slight anion gap but no severe renal dysfunction. Likely dehydrated and again given IV fluids here. High sensitive troponin is initially returning somewhat elevated likely believe demand in the setting of his diarrhea and some dehydration. Tachycardia is improving with hydration. Negative flu and COVID test. Again benign abdomen at this point and doubt this represents diverticulitis. Stool study pending collection. Discussed with the patient given the findings recommend further observation here and he still significantly symptomatic in terms of weakness. He was in agreement and the hospitalist was contacted. Lower suspicion for ACS but given a dose of aspirin. DIAGNOSIS: Diarrhea, weakness, elevated troponin DISPOSITION: Hospitalist will evaluate Patient was agreeable with this plan. Past Med/Surg History Medical History BPH (benign prostatic hyperplasia) Chronic steroid use GERD (gastroesophageal reflux disease) History of COVID-19 09/2021 @ [facility]--had difficulty breathing was not hospitalized but was on home oxygen for 7 days, no further issues and no long er on any oxygen History of double vision History of skin cancer HLD (hyperlipidemia) HTN (hypertension) Hypothyroidism Kidney stones Left ureteral stone Myasthenia gravis 2009. Follows w/ Dr. Marija Watson. Occasional diplopia, but reported at 12/2019 office visit feeling "great." On Prednisone and Cellcept daily and Mestinon. 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 Rodas History of colonoscopy with polypectomy History of cystoscopy "MULTIPLE TIMES" History of esophagogastroduodenoscopy (EGD) History of lithotripsy (~05/2020) Hx of vasectomy S/P ureteral stent placement Family History Father , 72 Coronary heart disease Mother Cancer, Onset Age: 75 Brother Prostate cancer Sister Breast cancer Son Myocardial infarction, Onset Age: 30 Son Stroke Other No family history of adverse response to anesthesia Social History Smoking Status: Former smoker Cigarettes Per Day: 20; Second Hand Exposure: No; Do You Dip or Chew Tobacco: No; Tobacco Cessation Education Requested by Patient: No Hx Alcohol Use: No Hx Substance Use: No Preferred Language: Bahamian Communication Ability: Effective Visual Impairment: No Limitations Security Alarm Technician Required: No Beliefs That Will Affect Care: None marital status: Current Living Situation: Spouse Current Living Situation Comment: Lives with and granddaughter current occupational status: retired Other Information That Helps Us Care for You: No Feels Safe at Home: Yes Safety Concerns: Feels Safe At This Time Assistive Devices: Glasses Allergies Allergies Allergy/AdvReac Type Severity Reaction Status Date / Time No Known Allergies Allergy Verified 01/22/22 08:02 Home Meds Home Medications Medication Instructions Recorded Confirmed levothyroxine 125 mcg tablet 125 mcg PO DAILYBB #30 tab 07/07/19 02/17/22 metformin 1,000 mg tablet 1,000 mg PO BIDM #180 tab 07/07/19 02/17/22 omeprazole 20 mg capsule,delayed 20 mg PO BID #30 cap 07/07/19 02/17/22 release prednisone 10 mg tablet 15 mg PO QAM tab 07/07/19 02/17/22 pyridostigmine bromide 60 mg 60 mg PO TID tab 07/07/19 02/17/22 tablet (Mestinon) tamsulosin 0.4 mg capsule (Flomax) 0.4 mg PO QPM 07/07/19 02/17/22 cyanocobalamin (vitamin B-12) 1,000 mcg PO QPM 07/17/19 02/17/22 1,000 mcg tablet (Vitamin B-12) mycophenolate mofetil 500 mg 500 mg PO QAM 07/17/19 02/17/22 tablet (CellCept) calcium carb 300 mg-D3 800 1 tab PO BID 05/23/20 02/17/22 unit-mag ox 25 mg-copy clerk 0.5 mg-tenisha-Zn tablet (Caltrate + D3 Plus Minerals) cholecalciferol (vitamin D3) 25 25 mcg PO QAM 05/23/20 02/17/22 mcg (1,000 unit) tablet (Vitamin D3) empagliflozin 25 mg tablet 25 mg PO QAM 05/23/20 02/17/22 (Jardiance) rosuvastatin 5 mg tablet 5 mg PO HS 05/23/20 02/17/22 ramipril 2.5 mg capsule 2.5 mg PO QDL 12/11/21 02/17/22 Results & Data (ED) Vital Signs Vital Signs - 24 hr 02/17/22 07:53 02/17/22 08:00 02/17/22 08:30 Temperature 37.0 C Temperature Source Oral Pulse Rate 143 H 121 H 120 H Pulse Rhythm Regular Pulse Strength Normal Respiratory Rate 18 21 27 H Respiratory Effort / Characteristics Non-Labored Respiratory Depth Normal Respiratory Pattern Regular Blood Pressure 116/71 102/71 112/67 Blood Pressure Mean 86 81 82 Blood Pressure Position Lying Pulse Oximetry 90 95 Oxygen Delivery Method Room Air Room Air Sepsis Recent Fever Within 48 Hours No Sepsis New/Unexplained Change in Mental Status N/A Sepsis Action Taken by Nursing No Action Required 02/17/22 09:00 02/17/22 09:30 Temperature Temperature Source Pulse Rate 107 H 106 H Pulse Rhythm Pulse Strength Respiratory Rate 22 21 Respiratory Effort / Characteristics Respiratory Depth Respiratory Pattern Blood Pressure 103/60 92/58 L Blood Pressure Mean 74 69 Blood Pressure Position Pulse Oximetry 95 94 Oxygen Delivery Method Room Air Room Air Sepsis Recent Fever Within 48 Hours Sepsis New/Unexplained Change in Mental Status Sepsis Action Taken by Nursing Laboratory Data Result diagrams: 02/17/22 08:06 02/17/22 08:06 Lab Results 02/17/22 02/17/22 02/17/22 Range/Units 08:06 08:06 08:06 WBC 12.13 H (4.8-10.8) K/uL RBC 5.79 (4.7-6.1) M/uL Hgb 15.6 (14.0-18.0) g/dL Hct 47.5 (42-52) % MCV 82.0 (80-100) fL MCH 26.9 (25-34) pg MCHC 32.8 (32-36) g/dL RDW Std Deviation 47.7 H (36.4-46.3) fL RDW Coeff of [place] 15.9 H (11.5-14.5) % Plt Count 114 L (130-400) K/uL MPV 9.3 (7.4-10.4) fL Immature Gran % (Auto) 0.4 % Neut % (Auto) 88.9 % Lymph % (Auto) 6.2 % [place] % (Auto) 4.4 % Eos % (Auto) 0.0 % Baso % (Auto) 0.1 % Neut # (Auto) 10.79 H (1.4-6.5) K/uL Lymph # (Auto) 0.75 L (1.2-3.4) K/uL [place] # (Auto) 0.53 (0.11-0.59) K/uL Eos # (Auto) 0.00 (0-0.5) K/uL Baso # (Auto) 0.01 (0-0.2) K/uL Immature Gran # (Auto) 0.05 H (0.00-0.02) K/uL Sodium 135 L (136-145) mmol/L Potassium 3.6 (3.5-5.1) mmol/L Chloride 103 (98-107) mmol/L Carbon Dioxide 19 L (21-32) mmol/L Anion Gap 13 H (3-11) BUN 31 H (6-23) mg/dl Creatinine 1.08 (0.6-1.4) mg/dl Est Cr Clr Drug Dosing 47.6 ml/min Est GFR ( Amer) 76.3 ml/min Est GFR (Non-Af Amer) 65.9 ml/min BUN/Creatinine Ratio 28.7 H (10-20) Glucose 181 H (70-99(Fasting)) mg/dl Calcium 9.2 (8.5-10.1) mg/dl Magnesium 2.0 (1.7-2.4) mg/dl Total Bilirubin 0.8 (0.2-1.0) mg/dl AST 21 (13-39) U/L ALT 13 (7-52) U/L Alkaline Phosphatase 45 (34-104) U/L Troponin I High Sens 71.6 H* (0-20) pg/ml Total Protein 7.1 (6.0-8.3) gm/dl Albumin 3.9 (3.4-5.0) gm/dl Globulin 3.2 (2.5-4.0) gm/dl Albumin/Globulin Ratio 1.2 (0.9-2) TSH (0.300-4.500) uIu/ml SARS-CoV-2 (PCR) (Negative) Influenza Type A (PCR) (Neg) Influenza Type B (PCR) (Neg) RSV (RT-PCR) (Neg) 02/17/22 02/17/22 Range/Units 08:06 08:06 WBC (4.8-10.8) K/uL RBC (4.7-6.1) M/uL Hgb (14.0-18.0) g/dL Hct (42-52) % MCV (80-100) fL MCH (25-34) pg MCHC (32-36) g/dL RDW Std Deviation (36.4-46.3) fL RDW Coeff of [place] (11.5-14.5) % Plt Count (130-400) K/uL MPV (7.4-10.4) fL Immature Gran % (Auto) % Neut % (Auto) % Lymph % (Auto) % [place] % (Auto) % Eos % (Auto) % Baso % (Auto) % Neut # (Auto) (1.4-6.5) K/uL Lymph # (Auto) (1.2-3.4) K/uL [place] # (Auto) (0.11-0.59) K/uL Eos # (Auto) (0-0.5) K/uL Baso # (Auto) (0-0.2) K/uL Immature Gran # (Auto) (0.00-0.02) K/uL Sodium (136-145) mmol/L Potassium (3.5-5.1) mmol/L Chloride (98-107) mmol/L Carbon Dioxide (21-32) mmol/L Anion Gap (3-11) BUN (6-23) mg/dl Creatinine (0.6-1.4) mg/dl Est Cr Clr Drug Dosing ml/min Est GFR ( Amer) ml/min Est GFR (Non-Af Amer) ml/min BUN/Creatinine Ratio (10-20) Glucose (70-99(Fasting)) mg/dl Calcium (8.5-10.1) mg/dl Magnesium (1.7-2.4) mg/dl Total Bilirubin (0.2-1.0) mg/dl AST (13-39) U/L ALT (7-52) U/L Alkaline Phosphatase (34-104) U/L Troponin I High Sens (0-20) pg/ml Total Protein (6.0-8.3) gm/dl Albumin (3.4-5.0) gm/dl Globulin (2.5-4.0) gm/dl Albumin/Globulin Ratio (0.9-2) TSH 1.537 (0.300-4.500) uIu/ml SARS-CoV-2 (PCR) NEGATIVE (Negative) Influenza Type A (PCR) Negative (Neg) Influenza Type B (PCR) Negative (Neg) RSV (RT-PCR) Negative (Neg) Administered Medications Potassium Chloride/Sodium Chloride (Normal Saline W/20 Meq Kcl) 20 meq in 1,000 mls @ 50 mls/hr IV .Q20H [facility]; Protocol Stop: 02/18/22 07:44 Last Admin: 02/17/22 12:29 Dose: 50 mls/hr Documented by: [id number] Insulin Aspart (Insulin Aspart Per Unit) 0 units SC ACHS [facility] Stop: 03/19/22 11:29 Last Admin: 02/17/22 12:28 Dose: 2 units Documented by: [id number] Cosigned by: [id number] Insulin Glargine (Insulin Glargine Solostar 100 Units/Ml 3 Ml Pen) 0 - 8 units SC DAILY [facility] Stop: 03/19/22 11:29 Last Admin: 02/17/22 12:29 Dose: 8 units Documented by: [id number] Cosigned by: [id number] Levothyroxine Sodium (Levothyroxine Sodium 125 Mcg Tablet) 125 mcg PO DAILYBB [facility] Stop: 03/19/22 11:44 Last Admin: 02/17/22 12:29 Dose: 125 mcg Documented by: [id number] Discontinued Medications Aspirin (Aspirin Chew 324 Mg) 324 mg PO NOW STA Stop: 02/17/22 09:44 Last Admin: 02/17/22 09:50 Dose: 324 mg Documented by: [id number] Hydrocortisone Sodium Succinate (Hydrocortisone Sod Succinate 100 Mg/2 Ml Vial) 100 mg IV NOW STA Stop: 02/17/22 10:38 Last Admin: 02/17/22 12:17 Dose: 100 mg Documented by: [id number] Sodium Chloride (Nss 1000ml) 1,000 mls @ 999 mls/hr IV .Q1H1M JAQUELIN Stop: 02/17/22 09:00 Last Infusion: 02/17/22 09:12 Dose: 0 mls/hr Documented by: [id number] Admin: 02/17/22 08:09 Dose: 999 mls/hr Documented by: [id number] Lactated Ringer's (Lr) 500 mls @ 999 mls/hr IV .Q31M ONE Stop: 02/17/22 10:13 Last Infusion: 02/17/22 10:22 Dose: 0 mls/hr Documented by: [id number] Admin: 02/17/22 09:51 Dose: 999 mls/hr Documented by: [id number] Imaging Data Radiologist's Impression: Chest X-Ray 02/17/22 08:00 XR chest 1V portable HISTORY: 76 years-old Male weakness acute weakness with vomiting and diarrhea COMPARISON: CTA chest 12/11/2021 TECHNIQUE: Portable AP view of the chest FINDINGS: The cardiomediastinal and hilar silhouettes are within normal limits. Emphysema with chronic interstitial coarsening. There is no pneumothorax, pleural effusion or lobar airspace consolidation. Degenerative changes of the shoulders and spine. IMPRESSION: Emphysema with chronic interstitial coarsening. ACT 112: Negative or not required by law. The above report was generated using voice recognition software. It may contain grammatical, syntax or spelling errors. Electronically signed by: Gentry Rojas M.D. 02/17/2022 8:34 AM Discharge Plan Visit Data Chief Complaint: Diarrhea Stated Complaint: WEAKNESS DIARRHEA ED Provider: Sha Reagan Discharge Problem: Diarrhea, Elevated troponin I level, Weakness Patient Disposition: Being Evaluated by Hospitalist Discharge Instructions Interventions: ED Discharge Assessment Last Done: 02/17/22 10:49 Discharge Problem: Diarrhea Qualifiers: Diarrhea type: unspecified type Qualified Code(s): R19.7 - Diarrhea, unspecified
[2022-02-17 08:26] LABS: Hematocrit (blood only) 47.5 % (42-52); Hemoglobin 15.6 g/dL (14.0-18.0); Mean Corpuscular Hemoglobin 26.9 pg (25-34); Mean Corpuscular Hgb Conc 32.8 g/dL (32-36); Mean Platelet Volume 9.3 fL (7.4-10.4); Platelet Count 114 K/uL (130-400); RDW Coefficient of Variation 15.9 % (11.5-14.5); RDW Standard Deviation 47.7 fL (36.4-46.3); Red Blood Count 5.79 M/uL (4.7-6.1); White Blood Count 12.13 K/uL (4.8-10.8)
--- NOTE | 2022-02-17 08:35 | XRay Report ---
XR chest 1V portable HISTORY: 76 years-old Male weakness acute weakness with vomiting and diarrhea COMPARISON: CTA chest 12/11/2021 TECHNIQUE: Portable AP view of the chest FINDINGS: The cardiomediastinal and hilar silhouettes are within normal limits. Emphysema with chronic intersti tial coarsening. There is no pneumothorax, pleural effusion or lobar airspace consolidation. Degenera tive changes of the shoulders and spine. IMPRESSION: Emphysema with chronic interstitial coarsening. ACT 112: Negative or not required by law. The above report was generated using voice recognition software. It may contain grammatical, syntax o r spelling errors. Electronically signed by: Gentry Rojas M.D. 02/17/2022 8:34 AM
[2022-02-17 08:50] LABS: Basophils # (auto) 0.01 K/uL (0-0.2); Basophils % (auto) 0.1 %; Immature Granulocytes # (auto) 0.05 K/uL (0.00-0.02); Immature Granulocytes % (auto) 0.4 %; Lymphocytes # (auto) 0.75 K/uL (1.2-3.4); Lymphocytes % (auto) 6.2 %; Monocytes # (auto) 0.53 K/uL (0.11-0.59); Monocytes % (auto) 4.4 %; Neutrophils # (auto) 10.79 K/uL (1.4-6.5); Neutrophils % (auto) 88.9 %
[2022-02-17 08:52] LABS: Albumin Globulin Ratio 1.2 (0.9-2); Albumin Level 3.9 gm/dl (3.4-5.0); BUN Creatinine Ratio 28.7 (10-20); Bilirubin,Total 0.8 mg/dl (0.2-1.0); Calcium 9.2 mg/dl (8.5-10.1); Creatinine Clr Calc Pharmacy 47.6 ml/min; Est GFR (African American) 76.3 ml/min; Est GFR (Non-African American) 65.9 ml/min; Globulin 3.2 gm/dl (2.5-4.0); Potassium 3.6 mmol/L (3.5-5.1); Total Protein 7.1 gm/dl (6.0-8.3)
[2022-02-17 09:09] LABS: Influenza A virus by PCR Negative (Neg); Influenza B virus by PCR Negative (Neg); RSV by PCR Negative (Neg); SARS CoV2 RNA(COVID-19) InHosp NEGATIVE (Negative)
[2022-02-17] MEDS ORDERED: LACTATED RINGER'S 500 ML IV ONE (09:43)
[2022-02-17] MEDS ORDERED: ASPIRIN CHEW 324 MG PO STA (09:43)
[2022-02-17] MEDS ORDERED: DEXTROSE 50% 50 ML SYRINGE IV PRN (09:58)
[2022-02-17] MEDS ORDERED: ALUMINUM/MAGNESIUM SUSP 30 ML UDC PO PRN (09:58)
[2022-02-17] MEDS ORDERED: GLUCOSE 40% GEL 15 GM TUBE PO PRN (09:58)
[2022-02-17] MEDS ORDERED: ACETAMINOPHEN 325 MG TAB PO PRN (09:58)
[2022-02-17] MEDS ORDERED: CARBOHYDRATES FOR HYPOGLYCEMIA PO PRN (09:58)
[2022-02-17] MEDS ORDERED: GLUCAGON FOR INJ 1 MG VIAL SQ PRN (09:58)
[2022-02-17] MEDS ORDERED: POLYETHYLENE (MIRALAX) 17 GM PACK PO PRN (09:58)
[2022-02-17] MEDS ORDERED: ONDANSETRON INJ 2 MG/ML 2 ML VIAL IV PRN (09:58)
[2022-02-17] MEDS ORDERED: GLUCOSE 10 TABS/TUBE PO PRN (09:58)
[2022-02-17] MEDS ORDERED: MAGNESIUM HYDROXIDE SUSP 30 ML UDC PO PRN (09:58)
--- NOTE | 2022-02-17 10:09 | History & Physical Report ---
Date of Service February 17, 2022 Assessment & Plan (1) Sepsis: (2) Diarrhea: (3) Generalized weakness: (4) Dehydration: (5) Elevated troponin: (6) Diabetes: (7) Myasthenia gravis: Plan: This is a 76-year-old male who has significant past medical history of T2DM, HT N, HLD, PVD, emphysema, severe calcific aortic stenosis, myasthenia gravis, chronic prednisone use, GERD, BPH who presents to ED secondary to weakness and diarrhea x2 days. Per CMS criteria patient meets for sepsis in setting of tachycardia, leukocytosis and initial hypotension Source: Likely viral illness in setting of diarrhea, abdomen exam benign Reported fever therefore blood cultures will be obtained Patient received 1.5 L of IV fluid in ED hold empiric antibiotics due to concern for a likely viral illness Sepsis -likely Diarrheal illness -Likely viral Generalized weakness Admit to PCU Blood cultures ordered, urine cultures ordered and obtain stool culture Continue gentle hydration with IV NS + 20meq KCL @ 50ml/hr x 1L encourage fluid intake supportive care PT/OT give stress dose steroid 100mg IV hydrocortisone x 1 today and 50mg tomorrow; reassess 02/18 Dehydration Acute renal insufficiency / to poor intake and diarrhea gentle hydration, caution in setting of know severe Elevated troponin Severe calcific likely in setting of demand ischemia due to sinus tach pt denies CP, EKG w/o ischemic change will trend trops caution with fluid resusc due to last echo 11/2021 EF 65%, grade I diastolic dysfunction, severe calcific , mild AR Cath 11/2021 revealed clean coronaries except for 40% LAD Myasthenia Gravis pt has been w/o meds for 2 days start stress dose steroids hydrocortisone 100mg x 1 now; 50mg in a.m. and then reassess he is on prednisone 15mg daily also on cellcept and mestinon - continue T2DM controlled on metformin/jardiance as outpt - hold a1c 7.2 11/2021, repeat in a.m. lantus/novolog per protocol Hypothyroid continue synthyroid tsh nml DVT ppx: SQ heparin, plt ct 114, monitor DNR/DNI Dispo: PCU, likely to be admitted for 1-2 days, PT/OT consulted, hopeful to retu rn home with and granddaughter PCP: Pilgram; Neuro Dr. Smith in [facility] for MG Pt was seen and examined in collaboration with Dr. Sanches, please see addendum History of Present Illness Chief Complaint: Diarrhea and weakness x 2 days. Primary Care Provider: Robert No MD This is a 76-year-old male who has significant past medical history of T2DM, HTN, HLD, PVD, emphysema, severe calcific aortic stenosis, myasthenia gravis, chronic prednisone use, GERD, BPH who presents to ED secondary to weakness and diarrhea x2 days. Sx started Thursday afternoon. He complains of loose, watery diarrhea. He has about 2 episodes a day. Described as mucousy but no blood or black tarry. He denies any abdominal pain. He did have elevated temp this a.m. at 101.2. He denies any muscle pain, sore throat, runny nose, HARRELL, dizziness, chest pain, sob, cough, uri sx, dysuria, increased urg/freq with urination. Overall poor appetite for last 2 days. Generally doesn't feel well, but denies mely N/V. He feels very weak. His had to put his socks on this morning. He does live at home with his . GrandDaughter at bedside. He denies current smoking, but 40 years ago smoked a pipe. He denies ETOH use. Pt admits to prior ca with melanoma but denies DVT/PE. He has a sister with lung cancer and a brother who of unknown cancer. Strong family hx of cancer. He denies recent antibiotic use, hospitalization, illness or sick contact. In ED patient was initially hypotensive and tachycardic. Lab work notable for elevated WBC 12 K, mild left shift, sodium 135, BUN 31, creatinine 1.08, glucose 181 and elevated troponin at 77. Initial EKG revealed sinus tachycardia. Patient did not report any chest pain. Received full- strength aspirin as well as 1.5 L of IV fluid. His blood pressure did improve systolically into the low 100s and heart rate reduced to the low 100s as well. Patient does admit he has been without his medications for the last 2 days including medication regarding his myasthenia gravis of prednisone, CellCept and Mestinon. Chest x-ray revealed emphysema but no acute pulmonary abnormality. Allergies Allergy/AdvReac Type Severity Reaction Status Date / Time No Known Allergies Allergy Verified 01/22/22 08:02 Home Medications Medication Instructions Recorded Confirmed Type levothyroxine 125 mcg tablet 125 mcg PO DAILYBB #30 tab 07/07/19 02/17/22 History metformin 1,000 mg tablet 1,000 mg PO BIDM #180 tab 07/07/19 02/17/22 History omeprazole 20 mg capsule,delayed 20 mg PO BID #30 cap 07/07/19 02/17/22 History release prednisone 10 mg tablet 15 mg PO QAM tab 07/07/19 02/17/22 History pyridostigmine bromide 60 mg 60 mg PO TID tab 07/07/19 02/17/22 History tablet (Mestinon) tamsulosin 0.4 mg capsule (Flomax) 0.4 mg PO QPM 07/07/19 02/17/22 History cyanocobalamin (vitamin B-12) 1,000 mcg PO QPM 07/17/19 02/17/22 History 1,000 mcg tablet (Vitamin B-12) mycophenolate mofetil 500 mg 500 mg PO QAM 07/17/19 02/17/22 History tablet (CellCept) calcium carb 300 mg-D3 800 1 tab PO BID 05/23/20 02/17/22 History unit-mag ox 25 mg-copy manager 0.5 mg-tenisha-Zn tablet (Caltrate + D3 Plus Minerals) cholecalciferol (vitamin D3) 25 25 mcg PO QAM 05/23/20 02/17/22 History mcg (1,000 unit) tablet (Vitamin D3) empagliflozin 25 mg tablet 25 mg PO QAM 05/23/20 02/17/22 History (Jardiance) rosuvastatin 5 mg tablet 5 mg PO HS 05/23/20 02/17/22 History ramipril 2.5 mg capsule 2.5 mg PO QDL 12/11/21 02/17/22 History Past Med/Surg History Medical History BPH (benign prostatic hyperplasia) Chronic steroid use GERD (gastroesophageal reflux disease) History of COVID-19 09/2021 @ [facility]--had difficulty breathing was not hospitalized but was on home oxygen for 7 days, no further issues and no longer on any oxygen History of double vision History of skin cancer HLD (hyperlipidemia) HTN (hypertension) Hypothyroidism Kidney stones Left ureteral stone Myasthenia gravis 2009. Follows w/ Dr. Marija Watson. Occasional diplopia, but reported at 12/2019 office visit feeling "great." On Prednisone and Cellcept daily and Mestinon. 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 Rodas History of colonoscopy with polypectomy History of cystoscopy "MULTIPLE TIMES" History of esophagogastroduodenoscopy (EGD) History of lithotripsy (~05/2020) Hx of vasectomy S/P ureteral stent placement Family History Father , 72 Coronary heart disease Mother Cancer, Onset Age: 75 Brother Prostate cancer Sister Breast cancer Son Myocardial infarction, Onset Age: 30 Son Stroke Other No family history of adverse response to anesthesia Social History Smoking Status: Never smoker Cigarettes Per Day: 20; Second Hand Exposure: No; Hx Alcohol Use: No Hx Substance Use: No Preferred Language: Bengali Communication Ability: Effective Visual Impairment: No Limitations 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 Supervisor Required: No Beliefs That Will Affect Care: None marital status: Current Living Situation: Spouse and Family Current Living Situation Comment: Lives with and granddaughter current occupational status: retired Feels Safe at Home: Yes Assistive Devices: Glasses Review of Systems Review of Systems: All systems reviewed & are unremarkable except as noted in HPI & below Physical Exam Physical Exam: Constitutional: Thin, tall, M, vitals as above, NAD, sitting up in bed, pleasant, conversing easily Head: Normocephalic, Atraumatic Eyes: PERRL, conjunctivae normal, anicteric sclerae ENMT: external ear and nose normal, oropharynx normal Neck: trachea midline, no thyromegaly normal visual inspection Respiratory: normal respiratory effort, lungs clear to auscultation, no wheeze, rales, rhonchi. Normal insp/exp effort, no accessory muscle use Cardiovascular: Tachycardic rate, reg rhythm, 2/6 POPPY best heard cardiac apex, no edema Vessels: no JVD or carotid bruit Chest: normal inspection of chest Abdomen: normal bowel sounds, soft, nontender, no hepatosplenomegaly Musculoskeletal: no cyanosis or clubbing, extremities AROM x 4 Skin: no rashes, warm and dry normal turgor Neurologic: PERRL, EOMI, accommodation nl, no face palsy, no dysarthria CN's II-XI intact bilaterally and moves all extremities Psychiatric: A+Ox3, euthymic affect : deferred Results & Data Results & Data ([facility]) Vital Signs (Past 12 Hours) Vital Signs Temp Pulse Resp BP Pulse Ox 02/17/22 09:30 106 H 21 92/58 L 94 02/17/22 09:00 107 H 22 103/60 95 02/17/22 08:30 120 H 27 H 112/67 02/17/22 08:00 121 H 21 102/71 95 02/17/22 07:53 37.0 C 143 H 18 116/71 90 Diagnostic Findings Chest X-Ray 02/17/22 08:00 XR chest 1V portable HISTORY: 76 years-old Male weakness acute weakness with vomiting and diarrhea COMPARISON: CTA chest 12/11/2021 TECHNIQUE: Portable AP view of the chest FINDINGS: The cardiomediastinal and hilar silhouettes are within normal limits. Emphysema with chronic interstitial coarsening. There is no pneumothorax, pleural effusion or lobar airspace consolidation. Degenerative changes of the shoulders and spine. IMPRESSION: Emphysema with chronic interstitial coarsening. ACT 112: Negative or not required by law. The above report was generated using voice recognition software. It may contain grammatical, syntax or spelling errors. Electronically signed by: Gentry Rojas M.D. 02/17/2022 8:34 AM Medications Administered Medication List Discontinued Medications Aspirin (Aspirin Chew 324 Mg) 324 mg PO NOW STA Stop: 02/17/22 09:44 Last Admin: 02/17/22 09:50 Dose: 324 mg Documented by: [id number] Sodium Chloride (Nss 1000ml) 1,000 mls @ 999 mls/hr IV .Q1H1M JAQUELIN Stop: 02/17/22 09:00 Last Infusion: 02/17/22 09:12 Dose: 0 mls/hr Documented by: [id number] Admin: 02/17/22 08:09 Dose: 999 mls/hr Documented by: [id number] Lactated Ringer's (Lr) 500 mls @ 999 mls/hr IV .Q31M ONE Stop: 02/17/22 10:13 Last Admin: 02/17/22 09:51 Dose: 999 mls/hr Documented by: [id number] ECG Rate (beats per minute): 120 Rhythm: sinus tachycardia COVID-19 Results Results COVID-19 Adm Lab Results: RBC 5.79 M/uL (4.7-6.1) 02/17/22 WBC 12.13 K/uL (4.8-10.8) H 02/17/22 Hgb 15.6 g/dL (14.0-18.0) 02/17/22 Hct 47.5 % (42-52) 02/17/22 Plt Count 114 K/uL (130-400) L 02/17/22 Neutrophils (%) (Auto) 88.9 % 02/17/22 Lymphocytes (%) (Auto) 6.2 % 02/17/22 Monocytes # (Auto) 0.53 K/uL (0.11-0.59) 02/17/22 Eosinophils # (Auto) 0.00 K/uL (0-0.5) 02/17/22 Immature Granulocyte % (Auto) 0.4 % 02/17/22 Neutrophils # (Auto) 10.79 K/uL (1.4-6.5) H 02/17/22 Lymphocytes # (Auto) 0.75 K/uL (1.2-3.4) L 02/17/22 Monocytes # (Auto) 0.53 K/uL (0.11-0.59) 02/17/22 Eosinophils # (Auto) 0.00 K/uL (0-0.5) 02/17/22 Basophils # (Auto) 0.01 K/uL (0-0.2) 02/17/22 Immature Granulocyte # (Auto) 0.05 K/uL (0.00-0.02) H 02/17/22 Na 135 mmol/L (136-145) L 02/17/22 K 3.6 mmol/L (3.5-5.1) 02/17/22 Cl 103 mmol/L (98-107) 02/17/22 CO2 19 mmol/L (21-32) L 02/17/22 Anion Gap 13 (3-11) H 02/17/22 BUN 31 mg/dl (6-23) H 02/17/22 Creatinine 1.08 mg/dl (0.6-1.4) 02/17/22 BUN/Creatinine Ratio 28.7 (10-20) H 02/17/22 Glucose Level 181 mg/dl (70-99(Fasting)) H 02/17/22 Ca 9.2 mg/dl (8.5-10.1) 02/17/22 Total Bilirubin 0.8 mg/dl (0.2-1.0) 02/17/22 AST/SGOT 21 U/L (13-39) 02/17/22 ALT/SGPT 13 U/L (7-52) 02/17/22 Alkaline Phosphatase 45 U/L (34-104) 02/17/22 Total Protein 7.1 gm/dl (6.0-8.3) 02/17/22 Albumin 3.9 gm/dl (3.4-5.0) 02/17/22 Globulin 3.2 gm/dl (2.5-4.0) 02/17/22 Albumin/Globulin Ratio 1.2 (0.9-2) 02/17/22 COVID-19 PCR NEGATIVE (Negative) 02/17/22 Influenza Virus Type A (PCR) Negative (Neg) 02/17/22 Influenza Virus Type B (PCR) Negative (Neg) 02/17/22 Chest X-Ray 02/17/22 Code Status & VTE Plan Code Status DNR/DNI VTE Prophylaxis Plan VTE Prophylaxis will be ordered: Yes Supervising Physician Co-Signing Physician Notes 76 yo M w/ mild CAD (recent heart cath in Nov 2021), T2DM, HTN, HLD, PVD, emphysema, severe calcific aortic stenosis, myasthenia gravis on Prednisone 15 mg daily, GERD, BPH who presents to ED secondary to decreased appetite weakness and diarrhea x2 days. Per patient, he has been having nonbloody, watery diarrhea, 2-3 times a day since last 2 days a/w progressive weakness and decreased appetite. He had not taken his prednisone since last 2 days. He denies belly pain, chest pain, palpitation, headache, dizziness. He also denies nausea and vomiting but feels sick and not wanting to eat. Reports fever of 101.2F at home prior to coming to the ED. Smoked 'pipes" , q 40 years ago. No alcohol or recreational drug use. DNR/DNI. Labs and imaging reviewed. WBC minimally elevated, might be hemoconcentration d/t dehydration. Renal function good. Pedialyte by bedside, IVF at very low rate for 2 bags (@45 ml/hr), monitor lytes in AM, stress dose of hydrocortisone, evaluate clinically daily to resume his home prednisone. Given elevated heart rate (could be d/t dehydration), reported temp prior to arrival (not in hospital), elevated WBC (could be d/t steroid use vs hemoconcentration vs current infection) and likely GI infection (likely viral); we can call it likely sepsis 2/2 viral infection, send blood culture, monitor off antibiotic for now. PT/OT. Upon Exam GENERAL: Alert and oriented x3. NAD, on RA. appear ill and weak. HEENT: No pallor, no icterus. Pupils equal, round and reactive to light. Oral mucosa dry. NECK: No JVD, no neck masses. HEART: S1 and S2 heard. Tachycardia. No murmur, no gallop. RESPIRATORY SYSTEM: Normal AP diameter. No accessory muscle use. No wheezing, no crackles. ABDOMEN: Soft, bowel sounds present, nontender, no distention. CENTRAL NERVOUS SYSTEM: No facial droop. Speech is clear. Obeys simple commands. Moves extremities. EXTREMITIES: No edema, no erythema seen. I have seen and examined the patient and have discussed the case with the provider above. I agree with the assessment and plan as stated.
[2022-02-17] MEDS ORDERED: HYDROCORTISONE SOD SUCCINATE 100 MG/2 ML VIAL IV STA (10:37)
[2022-02-17] MEDS ORDERED: NSS + 20MEQ KCL 20 MEQ/1,000 ML BAG IV SCH (11:45)
[2022-02-17] MEDS: INSULIN ASPART PER UNIT SC SCH ×3 (12:28→21:16)
[2022-02-17] MEDS: INSULIN GLARGINE SOLOSTAR 100 UNITS/ML 3 ML PEN SC SCH (12:29)
[2022-02-17] MEDS: LEVOTHYROXINE SODIUM 125 MCG TABLET PO SCH (12:29)
[2022-02-17] MEDS: MYCOPHENOLATE MOFETIL 250 MG CAP PO SCH (13:02)
[2022-02-17] MEDS: PYRIDOSTIGMINE BROMIDE 60 MG TAB PO SCH ×2 (14:05→21:09)
[2022-02-17 17:15] LABS: Appearance Urine Clear (Clear); Bacteria Urine Automated Negative (Negative); Bilirubin Urine Negative (Negative); Blood Urine 1+ (Negative); Color Urine Dark Yellow; Glucose Urine UA 3+ (Negative); Ketones Urine 1+ (Negative); Leukocyte Esterase Urine Negative (Negative); Nitrite Urine Negative (Negative); Protein Urine 2+ (Negative); RBC Urine Automated 0-4 /hpf (0-4); Specific Gravity Urine 1.029 (1.000-1.030); Urobilinogen Urine Negative (Negative)
--- NOTE | 2022-02-17 17:32 | Communication Note ---
Date of Service: February 17, 2022 76 yo M w/ mild CAD (recent heart cath in Nov 2021), T2DM, HTN, HLD, PVD, emphysema, severe calcific aortic stenosis, myasthenia gravis on Prednisone 15 mg daily, GERD, BPH who presents to ED secondary to decreased appetite weakness and diarrhea x2 days. Per patient, he has been having nonbloody, watery diarrhea, 2-3 times a day since last 2 days a/w progressive weakness and decreased appetite. He had not taken his prednisone since last 2 days. He denies belly pain, chest pain, palpitation, headache, dizziness. He also denies nausea and vomiting but feels sick and not wanting to eat. Reports fever of 101.2F at home prior to coming to the ED. Smoked 'pipes" , q 40 years ago. No alcohol or recreational drug use. DNR/DNI. Labs and imaging reviewed. WBC minimally elevated, might be hemoconcentration d/t dehydration. Renal function good. Pedialyte by bedside, IVF at very low rate for 2 bags (@45 ml/hr), monitor lytes in AM, stress dose of hydrocortisone, evaluate clinically daily to resume his home prednisone. Given elevated heart rate (could be d/t dehydration), reported temp prior to arrival (not in hospital), elevated WBC (could be d/t steroid use vs hemoconcentration vs current infection) and likely GI infection (likely viral); we can call it likely sepsis 2/2 viral infection, send blood culture, monitor off antibiotic for now. PT/OT. Elevated troponin, likely demand ischemia, has down trended. Upon Exam GENERAL: Alert and oriented x3. NAD, on RA. appear ill and weak. HEENT: No pallor, no icterus. Pupils equal, round and reactive to light. Oral mucosa dry. NECK: No JVD, no neck masses. HEART: S1 and S2 heard. Tachycardia. No murmur, no gallop. RESPIRATORY SYSTEM: Normal AP diameter. No accessory muscle use. No wheezing, no crackles. ABDOMEN: Soft, bowel sounds present, nontender, no distention. CENTRAL NERVOUS SYSTEM: No facial droop. Speech is clear. Obeys simple commands. Moves extremities. EXTREMITIES: No edema, no erythema seen. I have seen and examined the patient and have discussed the case with the provider above. I agree with the assessment and plan as stated.
[2022-02-17 18:17] LABS: Adenovirus F 40/41 PCR Not Detected (NotDetected); Astrovirus PCR Not Detected (NotDetected); Clostridium diff Toxin A/B PCR Not Detected (NotDetected); Cryptosporidium PCR Not Detected (NotDetected); Cyclospora cayetanensis PCR Not Detected (NotDetected); Entamoeba histolytica PCR Not Detected (NotDetected); Enteroaggregative E.coli(EAEC) Not Detected (NotDetected); Enteropathogenic E.coli (EPEC) Not Detected (NotDetected); Enterotoxigenic E.coli (ETEC) Not Detected (NotDetected); Giardia lamblia PCR Not Detected (NotDetected); Norovirus GI/GII PCR Not Detected (NotDetected); Plesiomonas shigelloides PCR Not Detected (NotDetected); Rotavirus A PCR Not Detected (NotDetected); Salmonella PCR Not Detected (NotDetected); Sapovirus PCR Not Detected (NotDetected); Shiga-like Toxin E.coli (STEC) Not Detected (NotDetected); Shigella/Enteroinvasive E.coli Not Detected (NotDetected); Vibrio cholerae PCR Not Detected (NotDetected); Vibrio species PCR Not Detected (NotDetected); Yersinia enterocolitica PCR Not Detected (NotDetected)
[2022-02-17 18:21] LABS: Campylobacter PCR DETECTED (NotDetected)
[2022-02-17] MEDS: AZITHROMYCIN 250 MG TAB PO SCH (21:06)
[2022-02-17] MEDS: TAMSULOSIN HCL 0.4 MG CAP PO SCH (21:08)
[2022-02-17] MEDS: PANTOprazole 40 MG TAB PO SCH (21:09)
[2022-02-17] MEDS: HEPARIN SOD 5,000 UNIT/0.5 ML VIAL SQ SCH (21:14)
--- NOTE | 2022-02-18 06:25 | Electrocardiogram Report ---
Test Reason : Blood Pressure : / mmHG Vent. Rate : 128 BPM Atrial Rate : 128 BPM P-R Int : 144 ms QRS Dur : 084 ms QT Int : 306 ms P-R-T Axes : 044 -01 056 degrees QTc Int : 446 ms Sinus tachycardia Possible Left atrial enlargement Inferior infarct , age undetermined Nonspecific ST abnormality Abnormal ECG When compared with ECG of 11-DEC-2021 13:50, No significant change was found Confirmed by Trenton Summers ([id number]) on 02/18/2022 6:25:03 AM Referred By: ED Confirmed By:Trenton Summers
[2022-02-18] MEDS: LEVOTHYROXINE SODIUM 125 MCG TABLET PO SCH (06:27)
[2022-02-18] MEDS: INSULIN ASPART PER UNIT SC SCH ×4 (07:53→21:31)
[2022-02-18] MEDS: HYDROCORTISONE SOD 50 MG in SYRINGE 0 ML IV SCH ×2 (08:26→16:48)
[2022-02-18 08:47] LABS: Estimated Average Glucose 171 mg/dl; Hemoglobin A1C 7.6 % (4.5-5.6)
[2022-02-18] MEDS ORDERED: HYDROCORTISONE SOD SUCCINATE 100 MG/2 ML VIAL IV SCH (09:00)
[2022-02-18] MEDS ORDERED: HYDROCORTISONE SOD 50 MG in SYRINGE 0 ML IV SCH (09:00)
[2022-02-18] MEDS: NSS + 20MEQ KCL 20 MEQ/1,000 ML BAG IV SCH ×2 (09:17→23:13)
[2022-02-18] MEDS: AZITHROMYCIN 250 MG TAB PO SCH (09:18)
[2022-02-18] MEDS: PANTOprazole 40 MG TAB PO SCH ×2 (09:19→21:30)
[2022-02-18] MEDS: MYCOPHENOLATE MOFETIL 250 MG CAP PO SCH (09:19)
[2022-02-18] MEDS: HEPARIN SOD 5,000 UNIT/0.5 ML VIAL SQ SCH ×2 (09:19→21:29)
[2022-02-18] MEDS: PYRIDOSTIGMINE BROMIDE 60 MG TAB PO SCH ×3 (09:19→21:30)
[2022-02-18] MEDS: INSULIN GLARGINE SOLOSTAR 100 UNITS/ML 3 ML PEN SC SCH (09:21)
[2022-02-18 10:14] LABS: Mean Corpuscular Hgb Conc 32.3 g/dL (32-36)
[2022-02-18 10:26] LABS: Eosinophils # (auto) 0.01 K/uL (0-0.5); Eosinophils % (auto) 0.2 %; Hematocrit (blood only) 38.4 % (42-52); Hemoglobin 12.4 g/dL (14.0-18.0); Immature Granulocytes # (auto) 0.01 K/uL (0.00-0.02); Immature Granulocytes % (auto) 0.2 %; Lymphocytes # (auto) 0.55 K/uL (1.2-3.4); Lymphocytes % (auto) 8.9 %; Mean Corpuscular Volume 83.5 fL (80-100); Monocytes # (auto) 0.45 K/uL (0.11-0.59); Monocytes % (auto) 7.3 %; Neutrophils # (auto) 5.18 K/uL (1.4-6.5); Neutrophils % (auto) 83.4 %; Platelet Count 98 K/uL (130-400); Platelet Estimate Decreased (Normal); RDW Coefficient of Variation 15.5 % (11.5-14.5); RDW Standard Deviation 48.1 fL (36.4-46.3)
[2022-02-18 10:27] LABS: BUN Creatinine Ratio 27.2 (10-20); Creatinine Clr Calc Pharmacy 60.6 ml/min; Est GFR (African American) 99.4 ml/min; Est GFR (Non-African American) 85.7 ml/min; Potassium 3.4 mmol/L (3.5-5.1)
--- NOTE | 2022-02-18 11:07 | Hospitalist Progress Note ---
Date of Service February 18, 2022 Assessment & Plan (1) Sepsis: (2) Diarrhea: (3) Generalized weakness: (4) Dehydration: (5) Elevated troponin: (6) Diabetes: (7) Myasthenia gravis: Plan: per admitting service notes with addendum: This is a 76-year-old male who has significant past medical history of T2DM, HTN, HLD, PVD, emphysema, severe calcific aortic stenosis, myasthenia gravis, chronic prednisone use, GERD, BPH who presents to ED secondary to weakness and d iarrhea x2 days. Per CMS criteria patient meets for sepsis in setting of tachycardia, leukocytosis and initial hypotension Source: Likely viral illness in setting of diarrhea, abdomen exam benign Reported fever therefore blood cultures will be obtained Patient received 1.5 L of IV fluid in ED hold empiric antibiotics due to concern for a likely viral illness Sepsis -likely Diarrheal illness - secondary to Campylobacter Generalized weakness Admit to PCU Blood cultures ordered, urine cultures ordered and obtain stool culture Continue gentle hydration with IV NS + 20meq KCL @ 50ml/hr x 1L encourage fluid intake supportive care PT/OT give stress dose steroid 100mg IV hydrocortisone x 1 today and 50mg tomorrow; reassess 02/18 02/18 diarrhea improving, non bloody on Azithromycin Day #2 clear liquids gentle IV fluids secondary to severe aortic stenosis Dehydration Acute renal insufficiency 2/2 to poor intake and diarrhea gentle hydration, caution in setting of know severe /10 as per above Elevated troponin Severe calcific likely in setting of demand ischemia due to sinus tach pt denies CP, EKG w/o ischemic change will trend trops caution with fluid resusc due to last echo 11/2021 EF 65%, grade I diastolic dysfunction, severe calcific , mild AR Cath 11/2021 revealed clean coronaries except for 40% LAD / trended down 76, 61, 45 Myasthenia Gravis pt has been w/o meds for 2 days start stress dose steroids hydrocortisone 100mg x 1 now; 50mg in a.m. and then reassess he is on prednisone 15mg daily also on cellcept and mestinon - continue 02/18 no signs of flare up NIF q4h ordered Hydrocortisone 50mg q8h for now, taper off gradually, then resume usual prednisone monitor BP continue Cellcept and Mestinon T2DM controlled on metformin/jardiance as outpt - hold a1c 7.2 11/2021, repeat in a.m. lantus/novolog per protocol a1c 7.6 Hypothyroid continue levothyroxine tsh nml DVT ppx: SQ heparin, plt ct 114, monitor DNR/DNI Dispo: PCU, PT/OT consulted, hopeful to return home with and granddaughter PCP: [facility]; Neuro Dr. Smith in [facility] for [facility] Admission and Anticipated Discharge Date Admission Date: February 17, 2022 Subjective ff up for sepsis, Campylobacter infection, etc seen resting in bed, comfortable smiling states he feels about the same as yesterday had 2-3 BMs since last night, less than at home- every 20 mins no abdominal pain, nausea/vomiting, fever/chills no chest pain, dyspnea, palpitations, dizziness no other symptoms Review of Systems Review of Systems: all noted and negative except for above Physical Exam Physical Exam: General- oriented x 3, not in distress, speaks in sentences with no effort or accessory muscle use Head- atraumatic Eyes- PERRL, EOMI, anicteric ENT- dry oral mucosa, oropharynx clear Neck- supple, no JVD, no adenopathy, no thyromegaly; carotids +2/2, no bruits appreciated Lungs- clear to auscultation bilaterally, no rales/wheezes Heart- normal rate, regular rhythm; no murmur, no gallop, no rub appreciated Abdomen- (+) hyperactive bowel sounds, nondistended, soft, nontender, no masses or hepatosplenomegaly Extremities- no pretibial edema, no calf tenderness; peripheral pulses intact Neuro- alert, oriented x 3; CN 2-12 grossly intact; motor 5/5 bilaterally;sensation 100% on all extremities; no other gross focal neurologic deficits Skin- warm & dry Results & Data Results & Data ([facility]) Vital Signs (Past 12 Hours) Vital Signs Temp Pulse Pulse Resp BP Pulse Ox 02/18/22 07:46 36.6 C 88 18 94/56 L 92 02/18/22 07:11 88 02/18/22 04:37 37.1 C 80 17 94/56 L 95 02/17/22 23:07 36.9 C 77 18 91/54 L 94 all noted and reviewed including below
[2022-02-18] MEDS ORDERED: POTASSIUM CHLORIDE CRTAB 20 MEQ TABCR PO STA (13:54)
[2022-02-18] MEDS: TAMSULOSIN HCL 0.4 MG CAP PO SCH (21:29)
[2022-02-19] MEDS: HYDROCORTISONE SOD 50 MG in SYRINGE 0 ML IV SCH ×3 (00:07→21:17)
[2022-02-19] MEDS: LEVOTHYROXINE SODIUM 125 MCG TABLET PO SCH (06:06)
[2022-02-19 07:19] LABS: Hematocrit (blood only) 41.8 % (42-52); Hemoglobin 13.5 g/dL (14.0-18.0); Immature Granulocytes # (auto) 0.02 K/uL (0.00-0.02); Immature Granulocytes % (auto) 0.4 %; Lymphocytes # (auto) 0.59 K/uL (1.2-3.4); Lymphocytes % (auto) 12.3 %; Mean Corpuscular Hgb Conc 32.3 g/dL (32-36); Mean Corpuscular Volume 83.6 fL (80-100); Mean Platelet Volume 9.3 fL (7.4-10.4); Monocytes # (auto) 0.28 K/uL (0.11-0.59); Monocytes % (auto) 5.9 %; Neutrophils # (auto) 3.89 K/uL (1.4-6.5); Neutrophils % (auto) 81.4 %; Platelet Count 117 K/uL (130-400); RDW Coefficient of Variation 15.4 % (11.5-14.5); RDW Standard Deviation 47.3 fL (36.4-46.3); White Blood Count 4.78 K/uL (4.8-10.8)
[2022-02-19 07:46] LABS: Calcium 8.3 mg/dl (8.5-10.1); Est GFR (African American) 102.6 ml/min; Est GFR (Non-African American) 88.5 ml/min; Potassium 3.6 mmol/L (3.5-5.1)
[2022-02-19] MEDS: INSULIN ASPART PER UNIT SC SCH ×4 (07:52→21:00)
[2022-02-19] MEDS: PYRIDOSTIGMINE BROMIDE 60 MG TAB PO SCH ×3 (09:13→21:01)
[2022-02-19] MEDS: MYCOPHENOLATE MOFETIL 250 MG CAP PO SCH (09:13)
[2022-02-19] MEDS: HEPARIN SOD 5,000 UNIT/0.5 ML VIAL SQ SCH ×2 (09:14→20:59)
[2022-02-19] MEDS: PANTOprazole 40 MG TAB PO SCH ×2 (09:14→21:01)
[2022-02-19] MEDS: AZITHROMYCIN 250 MG TAB PO SCH (09:14)
[2022-02-19] MEDS: INSULIN GLARGINE SOLOSTAR 100 UNITS/ML 3 ML PEN SC SCH (09:18)
[2022-02-19] MEDS: NSS + 20MEQ KCL 20 MEQ/1,000 ML BAG IV SCH (12:29)
--- NOTE | 2022-02-19 13:40 | Hospitalist Progress Note ---
Date of Service February 19, 2022 Assessment & Plan (1) Sepsis: (2) Diarrhea: (3) Generalized weakness: (4) Dehydration: (5) Elevated troponin: (6) Diabetes: (7) Myasthenia gravis: Plan: per admitting service notes with addendum: This is a 76-year-old male who has significant past medical history of T2DM, HTN, HLD, PVD, emphysema, severe calcific aortic stenosis, myasthenia gravis, chronic prednisone use, GERD, BPH who presents to ED secondary to weakness and d iarrhea x2 days. Per CMS criteria patient meets for sepsis in setting of tachycardia, leukocytosis and initial hypotension Source: Likely viral illness in setting of diarrhea, abdomen exam benign Reported fever therefore blood cultures will be obtained Patient received 1.5 L of IV fluid in ED hold empiric antibiotics due to concern for a likely viral illness Sepsis -likely Diarrheal illness - secondary to Campylobacter Generalized weakness Admit to PCU Blood cultures ordered, urine cultures ordered and obtain stool culture Continue gentle hydration with IV NS + 20meq KCL @ 50ml/hr x 1L encourage fluid intake supportive care PT/OT give stress dose steroid 100mg IV hydrocortisone x 1 today and 50mg tomorrow; reassess 02/18 02/19 Diarrhea resolved Advance diet to regular Continue azithromycin day number 3 out of 10 gentle IV fluids secondary to severe aortic stenosis Dehydration Acute renal insufficiency 2/2 to poor intake and diarrhea gentle hydration, caution in setting of know severe 02/19 Resolved as per above Elevated troponin Severe calcific likely in setting of demand ischemia due to sinus tach pt denies CP, EKG w/o ischemic change will trend trops caution with fluid resusc due to last echo 11/2021 EF 65%, grade I diastolic dysfunction, severe calcific , mild AR Cath 11/2021 revealed clean coronaries except for 40% LAD 02/19 trended down 76, 61, 45 No cardiac symptoms Myasthenia Gravis pt has been w/o meds for 2 days start stress dose steroids hydrocortisone 100mg x 1 now; 50mg in a.m. and then reassess he is on prednisone 15mg daily also on cellcept and mestinon - continue 02/19 no signs of flare up NIF q4h ordered-remained stable, greater than 40 Hydrocortisone 50mg every 12 for now, then daily tomorrow, then prednisone 40, then taper gradually till usual prednisone dose BP improving continue Cellcept and Mestinon T2DM controlled on metformin/jardiance as outpt - hold a1c 7.2 11/2021, repeat in a.m. lantus/novolog per protocol a1c 7.6 Hypothyroid continue levothyroxine tsh nml DVT ppx: SQ heparin, plt ct 114, monitor DNR/DNI Dispo: PCU, PT/OT consulted, hopeful to return home with and granddaughter PCP: Marybel; Neuro Dr. Smith in [facility] for [facility] Admission and Anticipated Discharge Date Admission Date: February 17, 2022 Subjective Follow-up for sepsis secondary to Campylobacter diarrhea, chronic prednisone use, etc. Seen sitting up in bed, comfortable, in good spirits States he continues to feel better overall Only had 1 bowel movement this morning, loose No abdominal pain, fevers or chills no chest pain, dyspnea, palpitations, dizziness Ambulated in the hallways with no problems No other symptoms Review of Systems Review of Systems: all noted and negative except for above Physical Exam Physical Exam: General- oriented x 3, not in distress, speaks in sentences with no effort or accessory muscle use Eyes- anicteric Neck- no JVD Lungs- clear breath sounds bilaterally, no rales/wheezes Heart- normal rate, regular rhythm; no murmurs Abdomen- normal bowel sounds, nondistended, soft, nontender Extremities- no pretibial edema, no calf tenderness Neuro- alert, oriented x 3; no gross focal neurologic deficits Skin- warm & dry Results & Data Results & Data ([facility]) Vital Signs (Past 12 Hours) Vital Signs Temp Pulse Pulse Resp BP Pulse Ox 02/19/22 12:00 62 20 120/72 98 02/19/22 08:17 77 18 117/66 94 02/19/22 07:24 75 02/19/22 05:20 57 L 02/19/22 03:08 36.4 C L 60 16 101/63 95 all noted and reviewed including below
[2022-02-19] MEDS: TAMSULOSIN HCL 0.4 MG CAP PO SCH (21:02)
[2022-02-20] MEDS: NSS + 20MEQ KCL 20 MEQ/1,000 ML BAG IV SCH (02:05)
[2022-02-20] MEDS: LEVOTHYROXINE SODIUM 125 MCG TABLET PO SCH (06:13)
[2022-02-20 06:47] LABS: Basophils # (auto) 0.01 K/uL (0-0.2); Basophils % (auto) 0.2 %; Hemoglobin 11.1 g/dL (14.0-18.0); Immature Granulocytes # (auto) 0.05 K/uL (0.00-0.02); Immature Granulocytes % (auto) 1.2 %; Lymphocytes # (auto) 0.77 K/uL (1.2-3.4); Lymphocytes % (auto) 18.7 %; Mean Corpuscular Hemoglobin 26.7 pg (25-34); Mean Corpuscular Hgb Conc 32.6 g/dL (32-36); Mean Corpuscular Volume 81.7 fL (80-100); Mean Platelet Volume 9.4 fL (7.4-10.4); Monocytes # (auto) 0.32 K/uL (0.11-0.59); Monocytes % (auto) 7.8 %; Neutrophils # (auto) 2.96 K/uL (1.4-6.5); Neutrophils % (auto) 72.1 %; Platelet Count 110 K/uL (130-400); RDW Coefficient of Variation 15.2 % (11.5-14.5); RDW Standard Deviation 45.2 fL (36.4-46.3); Red Blood Count 4.16 M/uL (4.7-6.1); White Blood Count 4.11 K/uL (4.8-10.8)
[2022-02-20 07:15] LABS: Echinocytes 1+
[2022-02-20 07:34] LABS: BUN Creatinine Ratio 21.6 (10-20); Calcium 7.6 mg/dl (8.5-10.1); Creatinine Clr Calc Pharmacy 68.6 ml/min; Est GFR (African American) 103.1 ml/min; Potassium 3.6 mmol/L (3.5-5.1)
[2022-02-20] MEDS: INSULIN ASPART PER UNIT SC SCH ×4 (09:01→20:39)
[2022-02-20] MEDS: INSULIN GLARGINE SOLOSTAR 100 UNITS/ML 3 ML PEN SC SCH (09:02)
[2022-02-20] MEDS: PYRIDOSTIGMINE BROMIDE 60 MG TAB PO SCH ×3 (09:06→20:40)
[2022-02-20] MEDS: HYDROCORTISONE SOD 50 MG in SYRINGE 0 ML IV SCH (09:06)
[2022-02-20] MEDS: AZITHROMYCIN 250 MG TAB PO SCH (09:07)
[2022-02-20] MEDS: HEPARIN SOD 5,000 UNIT/0.5 ML VIAL SQ SCH ×2 (09:07→20:39)
[2022-02-20] MEDS: PANTOprazole 40 MG TAB PO SCH ×2 (09:08→20:40)
[2022-02-20] MEDS: MYCOPHENOLATE MOFETIL 250 MG CAP PO SCH (09:08)
--- NOTE | 2022-02-20 13:15 | Hospitalist Progress Note ---
Date of Service February 20, 2022 Assessment & Plan (1) Sepsis: (2) Diarrhea: (3) Generalized weakness: (4) Dehydration: (5) Elevated troponin: (6) Diabetes: (7) Myasthenia gravis: Plan: per admitting service notes with addendum: This is a 76-year-old male who has significant past medical history of T2DM, HTN, HLD, PVD, emphysema, severe calcific aortic stenosis, myasthenia gravis, chronic prednisone use, GERD, BPH who presents to ED secondary to weakness and d iarrhea x2 days. Per CMS criteria patient meets for sepsis in setting of tachycardia, leukocytosis and initial hypotension Source: Likely viral illness in setting of diarrhea, abdomen exam benign Reported fever therefore blood cultures will be obtained Patient received 1.5 L of IV fluid in ED hold empiric antibiotics due to concern for a likely viral illness Sepsis -likely Diarrheal illness - secondary to Campylobacter Generalized weakness Admit to PCU Blood cultures ordered, urine cultures ordered and obtain stool culture Continue gentle hydration with IV NS + 20meq KCL @ 50ml/hr x 1L encourage fluid intake supportive care PT/OT give stress dose steroid 100mg IV hydrocortisone x 1 today and 50mg tomorrow; reassess 02/18 02/20 Diarrhea resolved Tolerating regular diet Continue azithromycin day number 4 out of 10 DC IV NSS Monitor Hydrocortisone 50 mg IV 1 dose today, transition to prednisone tomorrow Monitor blood pressure Dehydration Acute renal insufficiency 2/2 to poor intake and diarrhea gentle hydration, caution in setting of know severe 02/20 Resolved as per above Elevated troponin Severe calcific likely in setting of demand ischemia due to sinus tach pt denies CP, EKG w/o ischemic change will trend trops caution with fluid resusc due to last echo 11/2021 EF 65%, grade I diastolic dysfunction, severe calcific , mild AR Cath 11/2021 revealed clean coronaries except for 40% LAD 02/20 trended down 76, 61, 45 No cardiac symptoms Myasthenia Gravis pt has been w/o meds for 2 days start stress dose steroids hydrocortisone 100mg x 1 now; 50mg in a.m. and then reassess he is on prednisone 15mg daily also on cellcept and mestinon - continue 02/20 no signs of flare up NIF q4h ordered-remained stable, greater than 40 Hydrocortisone 50 mg IV 1 dose today, transition to prednisone tomorrow BP improving continue Cellcept and Mestinon T2DM controlled on metformin/jardiance as outpt - hold a1c 7.2 11/2021, repeat in a.m. lantus/novolog per protocol a1c 7.6 Hypothyroid continue levothyroxine tsh nml DVT ppx: SQ heparin, plt ct 114, monitor DNR/DNI Dispo: PCU, PT/OT consulted, hopeful to return home with and granddaughter PCP: Maryebl; Neuro [facility]. Smith in [facility] [place] Admission and Anticipated Discharge Date Admission Date: February 17, 2022 Subjective Follow-up for sepsis, Campylobacter diarrhea, etc. Seen sitting up in bed, comfortable, In good spirits States he continues to feel better Diarrhea has resolved No dizziness, shortness of breath, palpitations, chest pain No other symptoms Review of Systems Review of Systems: all noted and negative except for above Physical Exam Physical Exam: General- oriented x 3, not in distress, speaks in sentences with no effort or accessory muscle use Eyes- anicteric Neck- no JVD Lungs- clear breath sounds, no crackles or wheezing bilaterally Heart- normal rate, regular rhythm; no murmurs Abdomen- normal bowel sounds, nondistended, soft, nontender Extremities- no pretibial edema, no calf tenderness Neuro- alert, oriented x 3; no gross focal neurologic deficits Skin- warm & dry Results & Data Results & Data ([facility]) Vital Signs (Past 12 Hours) Vital Signs Temp Pulse Pulse Resp BP Pulse Ox 02/20/22 08:00 71 02/20/22 07:30 36.7 C 69 18 117/70 98 02/20/22 03:55 36.5 C 61 18 101/50 L 96 all noted and reviewed including below
[2022-02-20] MEDS: TAMSULOSIN HCL 0.4 MG CAP PO SCH (20:40)
[2022-02-21] MEDS: LEVOTHYROXINE SODIUM 125 MCG TABLET PO SCH (05:44)
[2022-02-21 05:56] LABS: Basophils # (auto) 0.01 K/uL (0-0.2); Basophils % (auto) 0.2 %; Eosinophils # (auto) 0.05 K/uL (0-0.5); Hematocrit (blood only) 33.3 % (42-52); Immature Granulocytes # (auto) 0.03 K/uL (0.00-0.02); Immature Granulocytes % (auto) 0.6 %; Lymphocytes # (auto) 1.21 K/uL (1.2-3.4); Lymphocytes % (auto) 25.1 %; Mean Corpuscular Hemoglobin 26.1 pg (25-34); Mean Corpuscular Volume 78.9 fL (80-100); Mean Platelet Volume 9.1 fL (7.4-10.4); Monocytes # (auto) 0.48 K/uL (0.11-0.59); Neutrophils # (auto) 3.04 K/uL (1.4-6.5); Neutrophils % (auto) 63.1 %; Platelet Count 115 K/uL (130-400); RDW Coefficient of Variation 15.1 % (11.5-14.5); RDW Standard Deviation 43.5 fL (36.4-46.3); Red Blood Count 4.22 M/uL (4.7-6.1); White Blood Count 4.82 K/uL (4.8-10.8)
[2022-02-21 06:18] LABS: Calcium 7.9 mg/dl (8.5-10.1); Creatinine Clr Calc Pharmacy 69.5 ml/min; Est GFR (African American) 102.6 ml/min; Est GFR (Non-African American) 88.5 ml/min
[2022-02-21 06:42] LABS: Ovalocytes 1+
[2022-02-21] MEDS ORDERED: POTASSIUM CHLORIDE CRTAB 20 MEQ TABCR PO STA (07:52)
[2022-02-21] MEDS: HEPARIN SOD 5,000 UNIT/0.5 ML VIAL SQ SCH (08:20)
[2022-02-21] MEDS: AZITHROMYCIN 250 MG TAB PO SCH (08:22)
[2022-02-21] MEDS: MYCOPHENOLATE MOFETIL 250 MG CAP PO SCH (08:22)
[2022-02-21] MEDS: PANTOprazole 40 MG TAB PO SCH (08:23)
[2022-02-21] MEDS: PYRIDOSTIGMINE BROMIDE 60 MG TAB PO SCH ×2 (08:23→14:20)
[2022-02-21] MEDS: INSULIN ASPART PER UNIT SC SCH ×2 (08:24→12:05)
[2022-02-21] MEDS: INSULIN GLARGINE SOLOSTAR 100 UNITS/ML 3 ML PEN SC SCH (08:24)
[2022-02-21] MEDS ORDERED: HYDROCORTISONE SOD 50 MG in SYRINGE 0 ML IV SCH (09:00)
[2022-02-21] MEDS ORDERED: predniSONE 20 MG TAB PO SCH (09:00)
--- NOTE | 2022-02-21 17:06 | Hospitalist Progress Note ---
Date of Service February 21, 2022 Assessment & Plan (1) Sepsis: (2) Diarrhea: (3) Generalized weakness: (4) Dehydration: (5) Elevated troponin: (6) Diabetes: (7) Myasthenia gravis: Plan: per admitting service notes with addendum: This is a 76-year-old male who has significant past medical history of T2DM, HTN, HLD, PVD, emphysema, severe calcific aortic stenosis, myasthenia gravis, chronic prednisone use, GERD, BPH who presents to ED secondary to weakness and d iarrhea x2 days. Per CMS criteria patient meets for sepsis in setting of tachycardia, leukocytosis and initial hypotension Source: Likely viral illness in setting of diarrhea, abdomen exam benign Reported fever therefore blood cultures will be obtained Patient received 1.5 L of IV fluid in ED hold empiric antibiotics due to concern for a likely viral illness Sepsis -likely Diarrheal illness - secondary to Campylobacter Generalized weakness Admit to PCU Blood cultures ordered, urine cultures ordered and obtain stool culture Continue gentle hydration with IV NS + 20meq KCL @ 50ml/hr x 1L encourage fluid intake supportive care PT/OT give stress dose steroid 100mg IV hydrocortisone x 1 today and 50mg tomorrow; reassess 02/18 02/21 Diarrhea resolved Tolerating regular diet Received 5 days of azithromycin, continue for 5 more days to complete 10 days of therapy Also given IV NSS Dehydration Acute renal insufficiency 11/13 to poor intake and diarrhea gentle hydration, caution in setting of know severe 02/21 Resolved as per above Elevated troponin Severe calcific likely in setting of demand ischemia due to sinus tach pt denies CP, EKG w/o ischemic change will trend trops caution with fluid resusc due to last echo 11/2021 EF 65%, grade I diastolic dysfunction, severe calcific , mild AR Cath 11/2021 revealed clean coronaries except for 40% LAD trended down 76, 61, 45 No cardiac symptoms Myasthenia Gravis pt has been w/o meds for 2 days start stress dose steroids hydrocortisone 100mg x 1 now; 50mg in a.m. and then reassess he is on prednisone 15mg daily also on cellcept and mestinon - continue 02/21 no signs of flare up NIF q4h ordered-remained stable, greater than 40 Given stress dose hydrocortisone, tapered off , borderline hypotension improved Resume usual prednisone on discharge continue Cellcept and Mestinon T2DM controlled on metformin/jardiance as outpt a1c 7.6 Follow-up as an outpatient Hypothyroid continue levothyroxine tsh nml DVT ppx: SQ heparin given DNR/DNI Dispo: PT OT recommending discharge to home Follow-up with PCP in 1 week plan of care discussed with patient in detail and at length all questions answered he is understanding, agreeable, comfortable with the plan of care Admission and Anticipated Discharge Date Admission Date: February 17, 2022 Subjective Follow-up for Campylobacter diarrhea, etc. Seen sitting up in bed, comfortable, smiling, in good spirits States he feels much better overall Abdominal pain, diarrhea has resolved Tolerating diet well No dizziness, ambulating with no problems No problems with vision, breathing No other symptom States he is ready for discharge today Review of Systems Review of Systems: all noted and negative except for above Physical Exam Physical Exam: General- oriented x 3, not in distress, speaks in sentences with no effort or accessory muscle use Eyes- anicteric Neck- no JVD Lungs- clear breath sounds, no crackles or wheezing bilaterally Heart- normal rate, regular rhythm; no murmurs Abdomen- normal bowel sounds, nondistended, soft, nontender Extremities- no pretibial edema, no calf tenderness Neuro- alert, oriented x 3; no gross focal neurologic deficits Skin- warm & dry Results & Data Results & Data ([facility]) Vital Signs (Past 12 Hours) Vital Signs Temp Pulse Pulse Resp BP Pulse Ox 02/21/22 15:06 36.4 C L 73 16 120/66 95 02/21/22 11:37 36.4 C L 73 16 120/66 95 02/21/22 08:54 72 02/21/22 07:48 36.5 C 64 15 117/64 97 all noted and reviewed including below
--- NOTE | 2022-02-21 17:09 | Discharge Summary ---
Date of Service February 21, 2022 Admission HPI Per Admitting Provider This is a 76-year-old male who has significant past medical history of T2DM, HTN, HLD, PVD, emphysema, severe calcific aortic stenosis, myasthenia gravis, chronic prednisone use, GERD, BPH who presents to ED secondary to weakness and diarrhea x2 days. Sx started Thursday afternoon. He complains of loose, watery diarrhea. He has about 2 episodes a day. Described as mucousy but no blood or black tarry. He denies any abdominal pain. He did have elevated temp this a.m. at 101.2. He denies any muscle pain, sore throat, runny nose, HARRELL, dizziness, chest pain, sob, cough, uri sx, dysuria, increased urg/freq with urination. Overall poor appetite for last 2 days. Generally doesn't feel well, but denies mely N/V. He feels very weak. His had to put his socks on this morning. He does live at home with his . GrandDaughter at bedside. He denies current smoking, but 40 years ago smoked a pipe. He denies ETOH use. Pt admits to prior ca with melanoma but denies DVT/PE. He has a sister with lung cancer and a brother who of unknown cancer. Strong family hx of cancer. He denies recent antibiotic use, hospitalization, illness or sick contact. In ED patient was initially hypotensive and tachycardic. Lab work notable for elevated WBC 12 K, mild left shift, sodium 135, BUN 31, creatinine 1.08, glucose 181 and elevated troponin at 77. Initial EKG revealed sinus tachycardia. Patient did not report any chest pain. Received full- strength aspirin as well as 1.5 L of IV fluid. His blood pressure did improve systolically into the low 100s and heart rate reduced to the low 100s as well. Patient does admit he has been without his medications for the last 2 days including medication regarding his myasthenia gravis of prednisone, CellCept and Mestinon. Chest x-ray revealed emphysema but no acute pulmonary abnormality. Admission Exam Per Admitting Provider Constitutional: Thin, tall, M, vitals as above, NAD, sitting up in bed, pleasant, conversing easily Head: Normocephalic, Atraumatic Eyes: PERRL, conjunctivae normal, anicteric sclerae ENMT: external ear and nose normal, oropharynx normal Neck: trachea midline, no thyromegaly normal visual inspection Respiratory: normal respiratory effort, lungs clear to auscultation, no wheeze, rales, rhonchi. Normal insp/exp effort, no accessory muscle use Cardiovascular: Tachycardic rate, reg rhythm, 2/6 POPPY best heard cardiac apex, no edema Vessels: no JVD or carotid bruit Chest: normal inspection of chest Abdomen: normal bowel sounds, soft, nontender, no hepatosplenomegaly Musculoskeletal: no cyanosis or clubbing, extremities AROM x 4 Skin: no rashes, warm and dry normal turgor Neurologic: PERRL, EOMI, accommodation nl, no face palsy, no dysarthria CN's II-XI intact bilaterally and moves all extremities Psychiatric: A+Ox3, euthymic affect : deferred Principal Diagnosis SEPSIS SECONDARY TO CAMPYLOBACTER DIARRHEA VOLUME DEPLETION Discharge Exam General- oriented x 3, not in distress, speaks in sentences with no effort or accessory muscle use Eyes- anicteric Neck- no JVD Lungs- clear breath sounds, no crackles or wheezing bilaterally Heart- normal rate, regular rhythm; no murmurs Abdomen- normal bowel sounds, nondistended, soft, nontender Extremities- no pretibial edema, no calf tenderness Neuro- alert, oriented x 3; no gross focal neurologic deficits Skin- warm & dry Discharge Data Allergies Allergy/AdvReac Type Severity Reaction Status Date / Time No Known Allergies Allergy Verified 01/22/22 08:02 Consultations 02/17/22 09:48 ED Decision to Admit Stat Procedures Performed FINDINGS: The cardiomediastinal and hilar silhouettes are within normal limits. Emphysema with chronic interstitial coarsening. There is no pneumothorax, pleural effusion or lobar airspace consolidation. Degenerative changes of the shoulders and spine. IMPRESSION: Emphysema with chronic interstitial coarsening. Hospital Course (1) Sepsis: (2) Diarrhea: (3) Generalized weakness: (4) Dehydration: (5) Elevated troponin: (6) Diabetes: (7) Myasthenia gravis: per admitting service notes with addendum: This is a 76-year-old male who has significant past medical history of T2DM, HTN, HLD, PVD, emphysema, severe calcific aortic stenosis, myasthenia gravis, chronic prednisone use, GERD, BPH who presents to ED secondary to weakness and diarrhea x2 days. Per CMS criteria patient meets for sepsis in setting of tachycardia, leukocytosis and initial hypotension Source: Likely viral illness in setting of diarrhea, abdomen exam benign Reported fever therefore blood cultures will be obtained Patient received 1.5 L of IV fluid in ED hold empiric antibiotics due to concern for a likely viral illness Sepsis -likely Diarrheal illness - secondary to Campylobacter Generalized weakness Admit to PCU Blood cultures ordered, urine cultures ordered and obtain stool culture Continue gentle hydration with IV NS + 20meq KCL @ 50ml/hr x 1L encourage fluid intake supportive care PT/OT give stress dose steroid 100mg IV hydrocortisone x 1 today and 50mg tomorrow; reassess 02/18 02/21 Diarrhea resolved Weakness resolved Tolerating regular diet Received 5 days of azithromycin, continue for 5 more days of azithromycin to complete 10 days of therapy Also given IV NSS Dehydration Acute renal insufficiency 11/13 to poor intake and diarrhea gentle hydration, caution in setting of know severe 02/21 Resolved as per above Elevated troponin Severe calcific likely in setting of demand ischemia due to sinus tach pt denies CP, EKG w/o ischemic change will trend trops caution with fluid resusc due to last echo 11/2021 EF 65%, grade I diastolic dysfunction, severe calcific , mild AR Cath 11/2021 revealed clean coronaries except for 40% LAD trended down 76, 61, 45 No cardiac symptoms Myasthenia Gravis pt has been w/o meds for 2 days start stress dose steroids hydrocortisone 100mg x 1 now; 50mg in a.m. and then reassess he is on prednisone 15mg daily also on cellcept and mestinon - continue 02/21 no signs of flare up NIF q4h ordered-remained stable, greater than 40 Given stress dose hydrocortisone, tapered off , borderline hypotension improved Resume usual prednisone on discharge continue Cellcept and Mestinon T2DM controlled on metformin/jardiance as outpt a1c 7.6 Follow-up as an outpatient Hypothyroid continue levothyroxine tsh nml DVT ppx: SQ heparin given DNR/DNI Dispo: PT OT recommending discharge to home Follow-up with PCP in 1 week plan of care discussed with patient in detail and at length all questions answered he is understanding, agreeable, comfortable with the plan of care Total Time Total Time Spent Total Time Spent (In Minutes): More than 30 minutes Discharge Plan Discharge Items Patient Disposition: Home - Self-Care Reason For Visit: WEAKNESS,DIARRHEA,ELEVATED TROPONIN Discharge Diagnosis: CAMPYLOBACTER DIARRHEA DEHYDRATION Activity: Resume your previous activity Activity Comment: Gradually increase as tolerated Lifting: Gradually increase as tolerated Exercise/Sports: Wait until after follow-up appointment Driving/Machine Use: No driving until reevaluated and allowed by primary care physician Non-emergency contact: Primary Care Provider Call non-emergency contact if: you have any medication questions, your symptoms worsen, your pain is not controlled, your pain is worsening, your pain is unusual for you, your pain is concerning for you and you have a fever Follow-up/Referrals: Robert No MD [Primary Care Provider] - (Date & Time 02/26/2022 1:40 PM Provider Yan Thomason MD Department Family Medicine [facility] ) Padmini Bejarano DPM [Outside Practitioners] - (Date & Time 02/24/2022 9:40 AM Provider Padmini Bejarano DPM Department Podiatry [facility] ) Diet: Carb Consistent or DM2 and Heart Healthy Addtl Attending Provider Instructions: PLEASE REFER TO YOUR NEW MEDICATION LIST AND FOLLOW INSTRUCTIONS CAREFULLY. YOUR NEW MEDICATIONS INCLUDE: Azithromycin-antibiotic for diarrhea Stop taking ramipril to prevent low blood pressure. Your primary care physician will reevaluate your blood pressure on your follow-up visit. Drink plenty of fluids. PLEASE CALL YOUR PRIMARY CARE PHYSICIAN OR RETURN TO THE ER IF WITH WORSENING OF SYMPTOMS, INCLUDING Persistence of diarrhea, abdominal pain, nausea vomiting, fevers or chills, Weakness, dizziness. FOLLOW UP WITH PRIMARY CARE PHYSICIAN OUTLINED ABOVE. Pending Studies at Discharge: No Stand-Alone Forms: My [employer], Smoking Cessation Medications and DC Order Prescriptions: New azithromycin 250 mg Tablet 500 mg PO DAILY 5 Days Qty: 10 RF: 0 Continued rosuvastatin 5 mg Tablet 5 mg PO HS RF: 0 cholecalciferol (vitamin D3) [Vitamin D3] 25 mcg (1,000 unit) Tablet 25 mcg PO QAM RF: 0 Jardiance 25 mg Tablet 25 mg PO QAM RF: 0 Caltrate + D3 Plus Minerals 300 mg-800 unit -25 mg-0.5 mg Tablet 1 tab PO BID RF: 0 omeprazole 20 mg capsule,delayed release(DR/EC) 20 mg PO BID Qty: 30 RF: 0 pyridostigmine bromide [Mestinon] 60 mg tablet 60 mg PO TID RF: 0 levothyroxine 125 mcg tablet 125 mcg PO DAILYBB Qty: 30 RF: 0 metformin 1,000 mg tablet 1,000 mg PO BIDM Qty: 180 RF: 0 prednisone 10 mg tablet 15 mg PO QAM RF: 0 tamsulosin [Flomax] 0.4 mg capsule 0.4 mg PO QPM RF: 0 cyanocobalamin (vitamin B-12) [Vitamin B-12] 1,000 mcg Tablet 1,000 mcg PO QPM RF: 0 mycophenolate mofetil [CellCept] 500 mg Tablet 500 mg PO QAM RF: 0 Discontinued ramipril 2.5 mg capsule 2.5 mg PO QDL RF: 0 Discharge Orders: Discharge Order (Routine); Ordered 02/21/22 Ordered By: Nahmu Crouch Admission Data Admit Date/Time: 02/17/22 09:58 Attending Provider: Nahum Crouch Admit Provider: Jessica Sanches Primary Care Provider: Robert No Other Providers: Jessica Sanches Other Interventions: Discharge Summary Assessment (RN) Last Done: 02/21/22 15:06
== END 2022-02-21 17:37 | disposition home or self-care (01) | DRG 872 ==
LOC: ED 07:52 → SUATTDRO 09:58 → 2S 09:58